=== PATIENT | female | born 1970 | race Caucasian/White ===

== ENCOUNTER → 2019-07-29 10:32 | Outpatient (BNVA) | payer MEDICARE, SELFPAY | PROVIDERS: Family Provider Family Medicine; PCP Family Medicine; Visit Provider Nurse Practitioner Family | DX: J02.9 Acute pharyngitis, unspecified (principal) | CPT/HCPCS: 87071; 87400; 87635; 87880 ==

== ENCOUNTER 2019-08-13 09:09 | Outpatient (CLI) | payer MEDICARE, SELFPAY ==
--- NOTE | 2019-08-13 09:42 | MM_ITS ---
WS: [id number] DIAGNOSTIC LEFT DIGITAL MAMMOGRAM WITH CAD HISTORY: Follow-up RIGHT breast post biopsy. COMPARISON: 01/02/2019, 01/16/2019 Technique: CC, MLO and ML views. Spot compression RIGHT CC. Breast composition: There are scattered areas of fibroglandular density. Biopsy of the asymmetry in the medial inferior RIGHT breast is stable. There is been no increase in size. Findings are concordan t with pathological and prior imaging. No additional workup at this time. MM/[place] [id number] IMPRESSION: BI-RADS: 2-Benign FOLLOW UP: See Report Patient to return to annual screening mammography. Patient's annual screening m ammogram should be in December 2019.
== END 2019-08-13 09:10 | disposition home or self-care (01) ==
PROVIDERS: Family Provider Family Medicine; PCP Family Medicine; Visit Provider Nurse Practitioner Women's Health
DX: R92.8 Other abnormal and inconclusive findings on diagnostic imaging of breast (principal)
CPT/HCPCS: 77065

== ENCOUNTER 2019-10-02 07:38 | Outpatient (CLI) | payer MEDICARE, SELFPAY ==
--- NOTE | 2019-10-02 08:00 | MM_ITS ---
WS: [id number] LEFT DIGITAL MAMMOGRAPHY WITH CAD CLINICAL INFORMATION: left breast mass at 8:00 COMPARISON: January 02, 2019 TECHNIQUE: 4 views of the left breast were obtained. FINDINGS: The left breast is composed of heterogeneous fibroglandular density tissue, which can limit the detec tion of small underlying mass lesions. Palpable marker lower inner quadrant left breast. No mammograp hic abnormalities in this area. Ultrasound is pending. ULTRASOUND BREAST LEFT TECHNIQUE: Ultrasound left breast focused area of concern. CLINICAL INFORMATION: left breast mass at 8:00 COMPARISON: None. FINDINGS: Ultrasound left breast at the 8:00 position at the palpable marker. No evidence of pathologic mass or lesion. No lesions to target for biopsy. Normal underlying breast tissue. MM/[place] [id number] IMPRESSION: BI-RADS: 2-Benign FOLLOW UP: 1 Year Follow-up Recommend return to annual screening mammography.
--- NOTE | 2019-10-02 08:45 | US_ITS ---
WS: [id number] LEFT DIGITAL MAMMOGRAPHY WITH CAD CLINICAL INFORMATION: left breast mass at 8:00 COMPARISON: January 02, 2019 TECHNIQUE: 4 views of the left breast were obtained. FINDINGS: The left breast is composed of heterogeneous fibroglandular density tissue, which can limit the detec tion of small underlying mass lesions. Palpable marker lower inner quadrant left breast. No mammograp hic abnormalities in this area. Ultrasound is pending. ULTRASOUND BREAST LEFT TECHNIQUE: Ultrasound left breast focused area of concern. CLINICAL INFORMATION: left breast mass at 8:00 COMPARISON: None. FINDINGS: Ultrasound left breast at the 8:00 position at the palpable marker. No evidence of pathologic mass or lesion. No lesions to target for biopsy. Normal underlying breast tissue. US/US breast LT limited* [id number] IMPRESSION: BI-RADS: 2-Benign FOLLOW UP: 1 Year Follow-up Recommend return to annual screening mammography.
== END 2019-10-02 07:39 | disposition home or self-care (01) ==
PROVIDERS: PCP Family Medicine; Visit Provider Nurse Practitioner Women's Health
DX: N63.24 Unspecified lump in the left breast, lower inner quadrant (principal)
CPT/HCPCS: 76642; 77065

== ENCOUNTER 2019-11-20 08:16 | Outpatient (CLI) | payer MEDICARE, SELFPAY ==
--- NOTE | 2019-11-20 08:20 | XR_ITS ---
WS: [id number] KUB, 11/20/2019 Clinical Data: RENAL CALCULUS Comparison: KUB, 09/10/2018. Findings: No abnormal intraabdominal masses or calcifications are seen. There is no dilatated small bowel or ev idence of obstruction. There are surgical clips overlying the right and left initial pubic rami. There are clips in the righ t upper quadrant from a cholecystectomy. There is fecal material in the descending colon. XR/XR KUB [id number] Impression: Negative for renal or ureteral calculi.
== END 2019-11-20 08:17 | disposition home or self-care (01) ==
LOC: RAD 08:18
PROVIDERS: PCP Family Medicine; Visit Provider Urology
DX: N20.0 Calculus of kidney (principal)
CPT/HCPCS: 74018; 81001

== ENCOUNTER 2019-12-22 09:05 | Emergency (ER) | payer MEDICARE, SELFPAY ==
[2019-12-22 09:16] VITALS: BP 159/100; PULSE 77; RESP 14; TEMP 36.5; O2SAT 98; BMI 30.7
--- NOTE | 2019-12-22 09:20 | XRR_ITS ---
PROCEDURE INFORMATION: Exam: XR Chest, 1 View Exam date and time: 12/22/2019 9:22 AM Age: 49 years old Clinical indication: Chest pain; Type not specified TECHNIQUE: Imaging protocol: XR of the chest Views: 1 view. COMPARISON: CR Chest 1 [place] [id number] 04/30/2018 9:54 AM FINDINGS: Lungs: Interstitial prominence without acute airspace disease. Pleural space: No pleural effusion. Heart/Mediastinum: No cardiomegaly. Bones/joints: Unremarkable. When correlating with the previous study, no significant interval changes are present. XR/XR chest 1V portable [id number] IMPRESSION: Stable appearance of the chest, not significantly changed from 04/30/18.
--- NOTE | 2019-12-22 09:20 | ECG_ITS ---
[facility] Test Date: 2019-12-22 Pat Name: Mila Greene Department: Room: Gender: Female [employer] Yard: : 1970 Requested By: Jie Woodson Order Number: [id number] Greg MD: Patricia Dillard M.D. Measurements Intervals [place] Rate: 62 P: 9 RI: 235 QRS: -19 QRSD: 96 T: 4 QT: 392 QTc: 400 Interpretive Statements SINUS RHYTHM WITH FIRST DEGREE AV BLOCK No previous ECG available for comparison Electronically Signed On 12-22-2019 15:17:53 CDT by Patricia Dillard M.D. [email or web address]/store/NU/[id number]/[id number] f
--- NOTE | 2019-12-22 09:22 | W.ED.CHESTPA ---
HPI - Chest Pain General: Chief Complaint: Chest Pain Stated Complaint: CHEST DISCOMFORT, N/V Time Seen by Provider: 12/22/19 09:13 History of Present Illness: HPI narrative: This patient is a 49-year-old female who presents today with nausea and chest pain. The nausea started on evening and she has had chest pain since Monday. She has been only able to eat toast and says it does not make her pain worse when she does so. The nausea has been constant but the chest pain does come and go to some degree. She feels it on the left side of her chest and it is worse with a deep breath. At times it radiates to her neck. At times she has tingling in the fingers of both hands. She has had an episode of chest pain in the past and thinks that she was told it was pleurisy. She has no history of heart disease. She has a history of hypertension but no diabetes. She is never been a smoker. She does have some family history of heart disease in both parents but she is not sure the type of problems that they had. Her father also had hypertension. She has had her gallbladder, appendix removed. She is also had a hysterectomy. She has had a right knee replacement in the remote past. She had Arnold-Chiari brain malformation and has had a brain decompression surgery for that. She has depression and fibromyalgia. MD complaint: chest pain Onset (ago): day(s) (3) Timing of current episode: constant Prior episodes: Yes Onset: during rest Pain location: left chest Pain radiation: neck Severity: moderate Quality: aching and heaviness Relieving factors: nothing Exacerbating factors: inspiration Associated symptoms: Reports nausea; Deny dyspnea or fever(s) Treatment prior to arrival: none Review of Systems General: Reports: 10 or more systems reviewed and unremarkable except in HPI and below Const: Denies: fever(s), chills, fatigue or malaise Eyes: Denies: change in vision ENMT: Denies: odynophagia Card: Reports: chest pain; Denies: swelling of feet/ankles Resp: Denies: dyspnea, productive cough or non-productive cough GI: Reports: nausea and diarrhea : Denies: flank pain or difficulty voiding Musc: Denies: neck pain or back pain Skin/Breast: Denies: rash Neuro: Denies: headache(s), numbness in extremities or weakness in extremities Allan/Lymph: Denies: easy bruising or easy bleeding PFSH ED PFSH: Medical History Abnormal mammogram of right breast Arnold-Chiari malformation Breast pain, left DDD (degenerative disc disease) Depression Dyspareunia, female Hypertension Lupus Recurrent UTI Urgency incontinence Urolithiasis Surgical History H/O bladder repair surgery H/O brain surgery (~2002) tx for chiari H/O knee surgery multiple arthroscopies on both knees H/O laparoscopy (~1995) - 03/27/1996. Laparoscopy. Dr. Cleveland AGUILERA. Adhesiolysis. Fulguration of endometriosis. No tissue for pathology. 10/03/1997. Laparoscopy. Dr. Cleveland AGUILERA. Adhesio lysis. Fulguration of endometriosis. Appendectomy, with benign pathology. History of appendectomy (~1999) History of bilateral oophorectomy a few years after hyst History of hysterectomy (~1999) History of partial knee replacement (~2009) right Hx of cholecystectomy Family History Grandmother Breast cancer, Onset Age: 50 MATERNAL Stroke PATERNAL Father , AGE 64 Diabetes Hypertension Alcohol abuse Family/Other Patient denies medical problems uterine/ovarian/colon cancer, thyroid, hypercholesterolemia,heart disease Social History Smoking and tobacco status: never smoked Alcohol intake: current Alcohol intake frequency: holidays/special occasions only Marital status: Current occupational status: unemployed History of recent travel: No Physical Exam Const: COMMON NORMALS: no acute distress, patient oriented x3, no limitations and alert GENERAL APPEARANCE: cooperative and comfortable HENMT: HEAD & SCALP: normal to inspection FACE & SINUS: normal facial exam Eye: GENERAL EYE: appearance normal, both eyes and all related structures Neck/C-Spine: COMMON NORMALS: supple, no meningeal signs and no JVD Chest: COMMONS NORMALS: normal inspection of the chest Resp: COMMON NORMALS: normal respiratory effort, No use of accessory muscles and clear to auscultation bilaterally AUSCULTATION: clear to auscultation bilaterally Cardio: COMMON NORMALS: no JVD, regular rate, regular rhythm and No murmurs present (Cardio) RATE: regular rate RHYTHM: regular rhythm GI: COMMON NORMALS: Normal to inspection, nondistended, normoactive bowel sounds present, Soft to palpation and non-tender INSPECTION: Yes normal to inspection AUSCULTATION: Yes normoactive bowel sounds PALPATION: Yes Soft to palpation Back/Pelvis: COMMON NORMALS: thoracic and lumbar spine normal to inspection Extremity: COMMON NORMALS: normal to inspection Neuro: COMMON NORMALS: patient oriented x3, moves all extremities, no focal motor deficits and no sensory deficits noted SENSORIUM/ORIENTATION: Yes alert MENINGEAL SIGNS: Yes no meningeal signs Psych: COMMON NORMALS: mental status grossly normal, cooperative and normal affect Skin: COMMON NORMALS: no rashes or lesions noted and turgor normal GENERAL SKIN EXAM: no rashes or lesions noted and turgor normal Course ED course: Work-up was negative including troponins, EKGs, d-dimer and lipase. Patient symptoms improved while she was in the ED. She said she felt she was ready to go home. She had gotten an appetite back and was drinking a Coca-Cola. We discussed that even with normal labs and findings in the ED she needs to follow-up with her primary care provider to see if they feel like further investigation of her symptoms as needed. We also discussed return precautions. Vital Signs: Vital signs: Vital Signs Temperature 97.7 F 12/22/19 09:16 Pulse Rate 70 12/22/19 13:53 Respiratory Rate 15 12/22/19 13:53 Blood Pressure 114/75 12/22/19 13:53 Pulse Oximetry 98 12/22/19 13:53 MDM - Chest Pain Lab Data: Labs: Lab Results 12/22/19 12/22/19 12/22/19 Range/Units 09:20 09: 09:20 WBC 4.8 (4.0-10.0) 10^3/ uL RBC 4.54 (4.1-5.3) 10^6/u L Hgb 14.1 (11.5-15.3) g/dL Hct 42.2 (37.0-47.0) % MCV 93.0 (81-99) fL MCH 31.1 (28.0-34.0) pg MCHC 33.4 (30.0-36.0) g/dL RDW 11.8 L (12.1-15.1) % Plt Count 321 (130-400) 10^3/c mm MPV 9.0 (7.4-10.4) fL Neut % (Auto) 52.0 % Lymph % (Auto) 38.8 % [place] % (Auto) 6.5 % Eos % (Auto) 2.1 % Baso % (Auto) 0.4 % Neut # (Auto) 2.48 (1.8-7.7) 10^3/u L Lymph # (Auto) 1.9 (0.8-4.8) 10^3/u L [place] # (Auto) 0.3 (0.2-0.9) 10^3/u L Eos # (Auto) 0.1 (0.0-0.8) 10^3/u L Baso # (Auto) 0.0 (0.0-0.1) 10^3/u L Nucleated RBC % (a uto) 0 % Nucleated RBCs # 0.0 /100WBC PT 12.70 (12.1-14.9) SECO NDS INR 0.93 (0.8-1.2) D-Dimer 0.35 (0-0.59) ug/mIFE U Sodium 141 (136-145) mmol/L Potassium 3.8 (3.5-5.1) mmol/L Chloride 105 (98-107) mmol/L Carbon Dioxide 24 (22-29) mmol/L Anion Gap 15.8 (5-19) BUN 8 (6-20) mg/dL Creatinine 0.7 (0.5-0.9) mg/dL GFR Calculation 88.9 L (90-130) mL/min Glucose 98 (65-115) mg/dL Calculated Osmolal ity 288 (285-295) mOsm/k g Calcium 9.6 (8.5-10.5) mg/dL Total Bilirubin 0.5 (0.15-1.2) mg/dL AST 16 (0-32) U/L ALT 17 (0-33) U/L Alkaline Phosphata se 83 (35-105) IU/L Troponin T Baselin e (0-10) ng/L Troponin T 120 Min [place] (0-10) ng/L Delta Troponin T (0-10) ABS# NT-Pro-B Natriuret Pep 45 (0-125) pg/mL Total Protein 7.6 (6.6-8.7) g/dL Albumin 4.5 (3.5-5.2) g/dL Globulin 3.1 (1.3-4.6) g/dL Lipase 26 (13-60) U/L 12/22/19 12/22/19 Range/Units 09:20 11:20 WBC (4.0-10.0) 10^3/ uL RBC (4.1-5.3) 10^6/u L Hgb (11.5-15.3) g/dL Hct (37.0-47.0) % MCV (81-99) fL MCH (28.0-34.0) pg MCHC (30.0-36.0) g/dL RDW (12.1-15.1) % Plt Count (130-400) 10^3/c mm MPV (7.4-10.4) fL Neut % (Auto) % Lymph % (Auto) % [place] % (Auto) % Eos % (Auto) % Baso % (Auto) % Neut # (Auto) (1.8-7.7) 10^3/u L Lymph # (Auto) (0.8-4.8) 10^3/u L [place] # (Auto) (0.2-0.9) 10^3/u L Eos # (Auto) (0.0-0.8) 10^3/u L Baso # (Auto) (0.0-0.1) 10^3/u L Nucleated RBC % (a uto) % Nucleated RBCs # /100WBC PT (12.1-14.9) SECO NDS INR (0.8-1.2) D-Dimer (0-0.59) ug/mIFE U Sodium (136-145) mmol/L Potassium (3.5-5.1) mmol/L Chloride (98-107) mmol/L Carbon Dioxide (22-29) mmol/L Anion Gap (5-19) BUN (6-20) mg/dL Creatinine (0.5-0.9) mg/dL GFR Calculation (90-130) mL/min Glucose (65-115) mg/dL Calculated Osmolal ity (285-295) mOsm/k g Calcium (8.5-10.5) mg/dL Total Bilirubin (0.15-1.2) mg/dL AST (0-32) U/L ALT (0-33) U/L Alkaline Phosphata se (35-105) IU/L Troponin T Baselin e 6 (0-10) ng/L Troponin T 120 Min [place] 6.00 (0-10) ng/L Delta Troponin T 0 (0-10) ABS# NT-Pro-B Natriuret Pep (0-125) pg/mL Total Protein (6.6-8.7) g/dL Albumin (3.5-5.2) g/dL Globulin (1.3-4.6) g/dL Lipase (13-60) U/L Discharge Plan Discharge Patient Disposition: Home Clinical Impression: Chest pain Condition: Stable Prescriptions: No Action fluoxetine 10 mg capsule 10 mg PO DAILY RF: 0 rizatriptan [Maxalt] 10 mg tablet 10 mg PO Q2H PRN (Reason: headaches) RF: 0 amitriptyline 25 mg tablet 25 mg PO .HS PRN (Reason: unknown) RF: 0 amlodipine 5 mg tablet 5 mg PO DAILY RF: 0 hydrocodone-acetaminophen [[place]] 5-325 mg tablet 1 tab PO .PRN PRN (Reason: Pain) RF: 0 bupropion HCl [Wellbutrin XL] 150 mg tablet extended release 24 hr 300 mg PO QAM RF: 0 lorazepam 1 mg tablet 1 mg PO DAILY PRN (Reason: Anxiety) RF: 0 Aspirin Low Dose 81 mg Tablet,Delayed Release (Dr/Ec) 81 mg PO DAILY PRN (Reason: pain/chest pain) RF: 0 Discharge Orders: Discharge Order (Routine); Ordered 12/22/19 Ordered By: Jie Chase Referrals: Robert Lu DO [Primary Care Provider] - Patient Instructions: Chest Pain (ED) Activity Restrictions/Additional Instructions: Return to the emergency department if new or worse symptoms. Follow-up with your primary care doctor this week for further evaluation of your symptoms. Continue a light diet until you are feeling better. Discharge Date/Time: 12/22/19 13:54 Coding Level of Care Code ED Ergonomic Specialist for Chg 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
[2019-12-22] MEDS: ondansetron 2 mg/ML SDV 2 mL 4 MG IVP (09:28)
[2019-12-22 09:31] LABS: Basophils % 0.4 %; Eosinophils # 0.1 10^3/uL (0.0-0.8); Eosinophils % 2.1 %; Hematocrit 42.2 % (37.0-47.0); Hemoglobin 14.1 g/dL (11.5-15.3); Lymphocytes # 1.9 10^3/uL (0.8-4.8); Lymphocytes % 38.8 %; Mean Corpuscular HGB Conc 33.4 g/dL (30.0-36.0); Mean Corpuscular Hemoglobin 31.1 pg (28.0-34.0); Monocytes # 0.3 10^3/uL (0.2-0.9); Monocytes % 6.5 %; Neutrophils # 2.48 10^3/uL (1.8-7.7); Nucleated Red Blood Cells % 0 %; Platelet Count 321 10^3/cmm (130-400); Red Blood Count 4.54 10^6/uL (4.1-5.3); Red Cell Distribution Width 11.8 % (12.1-15.1); White Blood Count 4.8 10^3/uL (4.0-10.0)
[2019-12-22 09:43] LABS: INR 0.93 (0.8-1.2)
[2019-12-22 09:46] LABS: D Dimer 0.35 ug/mIFEU (0-0.59)
[2019-12-22] MEDS: aspirin 81 mg Chew Tablet 324 MG PO (09:55)
--- NOTE | 2019-12-22 09:55 | PC.NURSE ---
Nausea has improved
[2019-12-22 09:58] LABS: Troponin(5th) Baseline 6 ng/L (0-10)
[2019-12-22 10:04] LABS: Alanine Aminotransferase 17 U/L (0-33); Albumin Level 4.5 g/dL (3.5-5.2); Alkaline Phosphatase 83 IU/L (35-105); Anion Gap 15.8 (5-19); Aspartate Amino Transferase 16 U/L (0-32); Blood Urea Nitrogen 8 mg/dL (6-20); Calcium 9.6 mg/dL (8.5-10.5); Carbon Dioxide 24 mmol/L (22-29); Chloride 105 mmol/L (98-107); Globulin 3.1 g/dL (1.3-4.6); Glomerular Filtration Rate 88.9 mL/min (90-130); Glucose 98 mg/dL (65-115); Lipase 26 U/L (13-60); NT Pro B Type Natriuretic Pept 45 pg/mL (0-125); Osmolality Calculated 288 mOsm/kg (285-295); Potassium 3.8 mmol/L (3.5-5.1); Sodium 141 mmol/L (136-145); Total Bilirubin 0.5 mg/dL (0.15-1.2); Total Protein 7.6 g/dL (6.6-8.7)
[2019-12-22 10:53] VITALS: BP 138/92; PULSE 66; RESP 16; O2SAT 99
[2019-12-22 11:51] LABS: Troponin 5 2HR Delta 0 ABS# (0-10)
[2019-12-22 13:53] VITALS: BP 114/75; PULSE 70; RESP 15; O2SAT 98
== END 2019-12-22 13:54 | disposition home or self-care (01) ==
PROVIDERS: Emergency Provider Emergency Medicine; PCP Family Medicine
DX: R07.9 Chest pain, unspecified (principal); Z79.82 Long term (current) use of aspirin; I10 Essential (primary) hypertension
CPT/HCPCS: 12345; 36415; 71045; 80053; 83690; 83880; 84484; 85025; 85378; 85610; 93005; 96374; 99283; 99284; J2405

== ENCOUNTER 2020-01-06 08:05 | Outpatient (CLI) | payer MEDICARE, SELFPAY ==
--- NOTE | 2020-01-06 08:10 | MM_ITS ---
WS: [id number] BILATERAL DIGITAL SCREENING MAMMOGRAPHY WITH CAD CLINICAL INFORMATION: SCREENING HISTORY: Screening mammogram. Pain and soreness COMPARISON: October 02, 2019 TECHNIQUE: Bilateral CC and MLO views. FINDINGS: The breasts are composed of heterogeneous fibroglandular density tissue, which can limit the detectio n of small underlying mass lesions. Previously biopsied unchanged asymmetry in the medial inferior ri ght breast. Prior biopsy demonstrated benign tissue. No new or suspicious normalities. MM/[id number] IMPRESSION: BI-RADS: 2-Benign FOLLOW UP: 1 Year Follow-up Recommend return to annual screening mammography.
== END 2020-01-06 08:06 | disposition home or self-care (01) ==
LOC: RADSHAW 08:07
PROVIDERS: PCP Family Medicine; Visit Provider Nurse Practitioner Women's Health
DX: Z12.31 Encounter for screening mammogram for malignant neoplasm of breast (principal)
CPT/HCPCS: 77067

== ENCOUNTER 2020-10-09 08:47 | Outpatient (CLI) | payer BC, MEDICARE, SELFPAY ==
--- NOTE | 2020-10-09 09:00 | MM_ITS ---
WS: [id number] Bilateral diagnostic digital mammogram, 10/09/2020 Clinical Data: N64.4 - Mastodynia Comparison: 10/09/2020, 01/06/2020, 10/02/2019, 08/13/2019, 01/16/2019, 01/02/2019, 12/19/2017, 03/17/2017, , 01/30/2015, 01/06/2014, 12/16/2011, 12/08/2010, 10/06/1999. Findings: The breast parenchymal pattern shows fibroglandular tissue. No spiculated masses or clustered calcifi cations are seen. There are no secondary signs of carcinoma. There are lymph nodes in both axilla. MM/[place] [id number] Impression: 1. Negative bilateral mammograms unchanged. 2. Right breast ultrasound was performed. BIRADS: 2-Benign FOLLOW UP: See Report The CAD security checker was used.
--- NOTE | 2020-10-09 09:30 | US_ITS ---
WS: [id number] Left breast ultrasound, 10/09/2020 Clinical Data: N64.4 - Mastodynia Comparison: Left breast ultrasound, 12/02/2019. Findings: No cysts or masses are seen. Only normal breast tissue is seen. The examination was limited to the le ft axilla. US/US breast LT limited* [id number] Impression: 1. Negative left breast ultrasound. 2. Return to annual screening mammograms. BIRADS: 2-Benign FOLLOW UP: 1 Year Follow-up
== END 2020-10-09 08:48 | disposition home or self-care (01) ==
LOC: RADSHAW 08:55
PROVIDERS: PCP Family Medicine; Visit Provider Nurse Practitioner Women's Health
DX: N64.4 Mastodynia (principal)
CPT/HCPCS: 76642; 77066

== ENCOUNTER 2020-10-27 07:04 | Outpatient (CLI) | payer BC, MEDICARE, SELFPAY ==
--- NOTE | 2020-10-27 07:12 | XR_ITS ---
WS: [id number] KUB, AP view, 10/27/2020 Clinical Data: STONES Comparison: KUB, 11/20/2019. Findings: No abnormal intraabdominal masses or calcifications are seen. There is no dilatated small bowel or ev idence of obstruction. Fecal material in colon and gas obscure detail over both kidneys. There are clips in the upper abdome n from a cholecystectomy. There are surgical clips in the low pelvis. XR/XR KUB [id number] Impression: Negative KUB.
== END 2020-10-27 07:05 | disposition home or self-care (01) ==
LOC: RAD 07:10
PROVIDERS: PCP Family Medicine; Visit Provider Urology
DX: N20.9 Urinary calculus, unspecified (principal); Z20.822 Contact with and (suspected) exposure to COVID-19; N39.0 Urinary tract infection, site not specified
CPT/HCPCS: 74018; 81003; 87086; 87635; 88112

== ENCOUNTER 2020-10-27 09:46 | Outpatient (CLI) | payer BC, MEDICARE, SELFPAY ==
--- NOTE | 2020-10-27 09:58 | CT_ITS ---
WS: [id number] CT ABDOMEN AND PELVIS NONCONTRAST HISTORY: UROLITHIASIS TECHNIQUE: Imaging performed through the abdomen and pelvis. Coronal and sagittal reformats are submi tted. All CT scans at [facility] use at least one of these dose optimization techniques: automated exposure control; mA and/or kV adjustment per patient size (includes targeted exams where d ose is matched to clinical indication); or iterative reconstruction. DLP: 1842.02 mGy.cm COMPARISON: 02/27/2018 Lower thorax: Lung bases are clear. Visualized heart is normal. No hiatal hernia. Liver: Mild diffuse hepatic steatosis. No mass or bile duct dilatation. Liver is also slightly enlarg ed. Gallbladder: Prior cholecystectomy. Pancreas: Normal size and attenuation. Normal pancreatic duct. No pancreatitis or mass. Spleen: Normal. Adrenal glands: Normal. No mass. Right kidney: Normal size kidney. Mild dilatation of the renal pelvis secondary to 5 mm stone at the UP junction. Distal ureter is normal. Left kidney: Normal size. Tiny calcifications centrally. 5 mm area of increased density in the lower pole cortex. May be a small complex cyst. Aorta: Normal abdominal aorta, no aneurysm or atherosclerosis. No free fluid, intraperitoneal air or significant lymphadenopathy. GI tract: Appendix is not identified, probable prior appendectomy. No secondary findings of appendici tis. No GI tract obstruction. Abdominal wall: Negative. No hernia. Pelvis: Prior hysterectomy. Osseous structures: Moderate degenerative disc disease at L4-5. CT/CT kidney stone [id number] IMPRESSION: 1. Mild RIGHT hydronephrosis secondary to a 5 mm calcification at the UP junct ion. 2. Nonobstructing nephrolithiasis, LEFT. 3. Prior appendectomy, cholecystectomy and hysterectomy. 4. Hepatic steatosis.
== END 2020-10-27 09:47 | disposition home or self-care (01) ==
LOC: RAD 09:51
PROVIDERS: PCP Family Medicine; Visit Provider Urology
DX: N20.9 Urinary calculus, unspecified (principal); N13.30 Unspecified hydronephrosis; N20.0 Calculus of kidney; Q42.8 Congenital absence, atresia and stenosis of other parts of large intestine; Z90.49 Acquired absence of other specified parts of digestive tract; Z90.710 Acquired absence of both cervix and uterus; K76.0 Fatty (change of) liver, not elsewhere classified
CPT/HCPCS: 74176

== ENCOUNTER 2020-10-27 16:25 | Emergency (ER) | payer BC, MEDICARE, SELFPAY ==
[2020-10-27] VITALS (7 sets, daily range): BP systolic 139–166; BP diastolic 77–98; PULSE 63–76; RESP 16–20; TEMP 37.1; O2SAT 96–100; BMI 31.0
--- NOTE | 2020-10-27 17:22 | ED_ITS ---
HPI - Back Pain/Injury General: Chief Complaint: Back Pain/Injury Stated Complaint: passing kidney stone Time Seen by Provider: 10/27/20 17:22 History of Present Illness: HPI Narrative: 50-year-old female comes in today with right flank pain. Patient was seen at Dr. Turcios's office yesterday and today and was diagnosed with a renal stone. Patient has CT scan done earlier today and it diagnosed a 5 mm obstructing stone with mild right hydronephrosis. Urinalysis showed no white blood cells but a large amount of red blood cells. Patient reports about 3:00 today she started having some pain had taken 1 hydrocodone but [id number] nauseous and sick and then seek treatment with the emergency room. Patient is alert and oriented and reports minimal relief of discomfort. Patient has a history of depression and anxiety, hypertension, recurrent renal calculi, chronic back pain. MD elicited complaint: back pain Pertinent past history: kidney stones Onset (ago): day(s) Timing: intermittent Quality: stabbing Location: right flank Review of Systems General: Reports: 10 or more systems reviewed and unremarkable except in HPI and below : Reports: flank pain PFSH ED PFSH: Medical History Abnormal mammogram of right breast Arnold-Chiari malformation Breast pain, left DDD (degenerative disc disease) Depression Dyspareunia, female Gross hematuria Hypertension Lupus Recurrent UTI Urgency incontinence Urolithiasis Surgical History H/O bladder repair surgery H/O brain surgery (~2002) tx for chiari H/O knee surgery multiple arthroscopies on both knees H/O laparoscopy (~1995) - 03/27/1996. Laparoscopy. Dr. Cleveland Magana. Adhesiolysis. Fulguration of endometriosis. No tissue for pathology. 10/03/1997. Laparoscopy. Dr. Cleveland AGUILERA. Adhesio lysis. Fulguration of endometriosis. Appendectomy, with benign pathology. History of appendectomy (~1999) History of bilateral oophorectomy a few years after hyst History of hysterectomy (~1999) History of partial knee replacement (~2009) right Hx of cholecystectomy Family History Grandmother Breast cancer, Onset Age: 50 MATERNAL Stroke PATERNAL Father , AGE 64 Diabetes Hypertension Alcohol abuse Family/Other Patient denies medical problems uterine/ovarian/colon cancer, thyroid, hypercholesterolemia,heart d isease Social History Smoking and tobacco status: never smoked Alcohol intake: current Alcohol intake frequency: holidays/special occasions only Marital status: Current occupational status: unemployed Physical Exam Const: COMMON NORMALS: no acute distress and patient oriented x3 GENERAL APPEARANCE: cooperative HENMT: COMMON NORMALS: normocephalic, TM's normal bilaterally and Normal external nose present HEAD & SCALP: normal to inspection and normocephalic NOSE: Normal external nose present TYMPANIC MEMBRANE: TM's normal bilaterally MOUTH: Normal oral and palatal mucosa present THROAT: posterior oropharynx normal Eye: GENERAL EYE: appearance normal, both eyes and all related structures Neck/C-Spine: COMMON NORMALS: full ROM Lymph: LYMPHATIC: no lymphadenopathy noted Chest: COMMONS NORMALS: normal inspection of the chest Resp: COMMON NORMALS: normal respiratory effort EFFORT & INSPECTION: Yes able to speak in complete sentences Cardio: COMMON NORMALS: regular rate and regular rhythm RATE: regular rate RHYTHM: regular rhythm GI: COMMON NORMALS: non-tender : BLADDER/KIDNEY EXAM: Yes CVA tenderness on the right Back/Pelvis: COMMON NORMALS: thoracic and lumbar spine normal to inspection GENERAL BACK: Yes CVA tenderness Extremity: COMMON NORMALS: normal to inspection Neuro: COMMON NORMALS: patient oriented x3 and moves all extremities Psych: COMMON NORMALS: mental status grossly normal and cooperative Skin: COMMON NORMALS: no rashes or lesions noted GENERAL SKIN EXAM: no rashes or lesions noted Course ED course: 1844. Patient reports significant pain relief. Discussed with patient options available for her. Patient wants to wait for the lithotripsy machine next week we will continue to monitor for fever and worsening symptoms. I recommend patient follow-up with Dr. Turcios in the morning. Vital Signs: Vital signs: Vital Signs Temperature 98.7 F 10/27/20 16:57 Pulse Rate 76 10/27/20 18:44 Respiratory Rate 18 10/27/20 18:44 Blood Pressure 141/83 10/27/20 18:44 Pulse Oximetry 97 10/27/20 18:44 MDM - Back Pain/Injury MDM Narrative: Medical decision making narrative: Patient comes in for exacerbation of her renal colic due to a 5 mm stone in the ureter. Exam notes that patient was nauseous, abdomen was soft, right CVA tenderness on percussion. Vital signs were normal. Differential diagnosis includes not limited to renal calculi, UTI, acute kidney injury. Laboratory values were unremarkable. Review of the record noted patient had a urinalysis done earlier today that was negative for any white blood cells. And review of the CT scan from earlier to day showed a 5 mm stone with right mild hydronephrosis. Reviewed exam with patient with recommendations for treatment and follow-up. Patient reported understanding agreed to plan she wants to continue follow-up with Dr. Turcios outpatient. Patient pain was brought under control with morphine. Lab Data: Labs: Lab Results 10/27/20 10/27/20 Range/Units 17:24 17:24 WBC 8.5 (4.0-10.0) 10^3/ uL RBC 4.38 (4.1-5.3) 10^6/u L Hgb 13.7 (11.5-15.3) g/dL Hct 40.1 (37.0-47.0) % MCV 91.6 (81-99) fL MCH 31.3 (28.0-34.0) pg MCHC 34.2 (30.0-36.0) g/dL RDW 12.0 L (12.1-15.1) % Plt Count 272 (130-400) 10^3/c mm MPV 10.1 (7.4-10.4) fL Neut % (Auto) 59.3 % Lymph % (Auto) 31.8 % [place] % (Auto) 6.6 % Eos % (Auto) 1.4 % Baso % (Auto) 0.5 % Neut # (Auto) 5.07 (1.8-7.7) 10^3/u L Lymph # (Auto) 2.7 (0.8-4.8) 10^3/u L [place] # (Auto) 0.6 (0.2-0.9) 10^3/u L Eos # (Auto) 0.1 (0.0-0.8) 10^3/u L Baso # (Auto) 0.0 (0.0-0.1) 10^3/u L Nucleated RBC % (a uto) 0 % Nucleated RBCs # 0.0 /100WBC Sodium 140 (136-145) mmol/L Potassium 3.4 L (3.5-5.1) mmol/L Chloride 103 (98-107) mmol/L Carbon Dioxide 19 L (22-29) mmol/L Anion Gap 21.4 H (5-19) BUN 14 (6-20) mg/dL Creatinine 0.6 (0.5-0.9) mg/dL GFR Calculation 105.8 (90-130) mL/min Glucose 127 H (65-115) mg/dL Calculated Osmolal ity 292 (285-295) mOsm/k g Calcium 8.6 (8.5-10.5) mg/dL Discharge Plan Discharge Patient Disposition: Home Clinical Impression: Renal colic Condition: Stable Prescriptions: No Action hydrocodone-acetaminophen 5-325 mg tablet 1 tab PO Q8H PRN (Reason: Pain) 4 Days Qty: 12 RF: 0 tamsulosin 0.4 mg capsule 0.4 mg PO DAILY Qty: 14 RF: 2 rizatriptan [Maxalt] 10 mg tablet 10 mg PO Q2H PRN (Reason: headaches) RF: 0 amitriptyline 25 mg tablet 25 mg PO BEDTIME PRN (Reason: Headache) RF: 0 amlodipine 5 mg tablet 5 mg PO DAILY RF: 0 lorazepam 1 mg tablet 1 mg PO TID PRN (Reason: Anxiety) RF: 0 bupropion HCl 150 mg Tablet Sustained-Release 12 Hr 150 mg PO BID RF: 0 fluoxetine 20 mg Capsule 20 mg PO DAILY RF: 0 Discharge Orders: Discharge ED (Routine); Ordered 10/27/20 Ordered By: Yoel Dawn Referrals: Robert Lu DO [Primary Care Provider] - Discharge Diet: Usual diet Discharge Activity: Increase activity as tolerated Patient Instructions: Abdominal Pain (ED), Opioid Safety Activity Restrictions/Additional Instructions: Continue with routine care. Follow-up with Dr. Turcios's office in the morning. Return to the ER for worsening symptoms. Coding Level of Care Code ED Nursing Home Administrator for Sara 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
[2020-10-27] MEDS: ketorolac 30 mg/mL INJ 15 MG IVP (17:31)
[2020-10-27] MEDS: ondansetron 2 mg/ML SDV 2 mL 4 MG IVP (17:31)
[2020-10-27] MEDS: morphine 4 mg/mL SDV 1 mL IVP ×2 (17:32→18:41)
[2020-10-27 17:45] LABS: Basophils % 0.5 %; Eosinophils # 0.1 10^3/uL (0.0-0.8); Eosinophils % 1.4 %; Hematocrit 40.1 % (37.0-47.0); Hemoglobin 13.7 g/dL (11.5-15.3); Lymphocytes # 2.7 10^3/uL (0.8-4.8); Lymphocytes % 31.8 %; Mean Corpuscular HGB Conc 34.2 g/dL (30.0-36.0); Mean Corpuscular Hemoglobin 31.3 pg (28.0-34.0); Mean Corpuscular Volume 91.6 fL (81-99); Mean Platelet Volume 10.1 fL (7.4-10.4); Monocytes # 0.6 10^3/uL (0.2-0.9); Monocytes % 6.6 %; Neutrophils # 5.07 10^3/uL (1.8-7.7); Neutrophils % 59.3 %; Nucleated Red Blood Cells % 0 %; Platelet Count 272 10^3/cmm (130-400); Positive C 1; Red Blood Count 4.38 10^6/uL (4.1-5.3); White Blood Count 8.5 10^3/uL (4.0-10.0)
[2020-10-27 18:03] LABS: Blood Urea Nitrogen 14 mg/dL (6-20); Calcium 8.6 mg/dL (8.5-10.5); Carbon Dioxide 19 mmol/L (22-29); Chloride 103 mmol/L (98-107); Glomerular Filtration Rate 105.8 mL/min (90-130); Glucose 127 mg/dL (65-115); Osmolality Calculated 292 mOsm/kg (285-295); Sodium 140 mmol/L (136-145)
[2020-10-27 18:17] LABS: Anion Gap 21.4 (5-19); Potassium 3.4 mmol/L (3.5-5.1)
== END 2020-10-27 18:54 | disposition home or self-care (01) ==
PROVIDERS: Emergency Provider Nurse Practitioner Family; PCP Family Medicine
DX: N13.2 Hydronephrosis with renal and ureteral calculous obstruction (principal); I10 Essential (primary) hypertension
CPT/HCPCS: 80048; 85025; 96374; 96375; 96376; 99284; J1885; J2270; J2405

== ENCOUNTER 2020-11-02 10:19 | Day surgery (SDC) | payer BC, MEDICARE, SELFPAY ==
[2020-10-30 13:19] VITALS: BMI 30.7
--- NOTE | 2020-11-02 10:26 | XR_ITS ---
WS: [id number] XR KUB [id number] REASON FOR EXAM: Preop right ESWL FINDINGS: The proximal right ureteral calculus seen on the KUB and CT of the abdomen on 27 October 2020 is not deb dily identifiable at the L1 level or along the course of the ureter or overlying the bladder. This ma y just be an issue of overlying bowel and respiratory motion artifact obscuring the 5 mm calculus. No other significant abnormality. XR/XR KUB [id number] IMPRESSION: Previously identified proximal right ureteral calculus not clearly defined on c urrent study.
[2020-11-02 11:19] VITALS: BP 139/96; PULSE 80; RESP 18; TEMP 36.8; O2SAT 97
[2020-11-02] MEDS: sodium chloride 0.9% 1,000 ML 30 ML IV (11:30)
--- NOTE | 2020-11-02 12:14 | ANES.PREANE2 ---
Pre-Anesthetic Assessment Pre-Anesthetic Assessment: Height/Weight: Height 1.7 m Weight 88.904 kg Temp Pulse Resp BP Pulse Ox 98.2 F 80 18 139/96 97 11/02/20 11:19 11/02/20 11:19 11/02/20 11:19 11/02/20 11:19 11/02/20 11:19 Preop Diagnosis: Right proximal ureteral calculus Proposed Procedure: Operation Date: 11/02/20 12:00 Proposed Procedures p Cystoscopy 87437 00725 n20.9(Not Applicable) - Lonnie Turcios MD s right Ureteral Stent Placement(Right) - Lonnie Turcios MD s ESWL Extracorporeal Shockwave Lithotrispy(Not Applicable) - Lonnie Turcios MD Was Beta Lisa taken within 24 hours: N/A Was Clonidine taken within 24 hours: N/A Last intake: Intake Last Liquid Date 11/01/20 Last Liquid Time 17:30 Last Solid Date 11/01/20 Last Solid Time 15:30 Social: Social History: No alcohol and No tobacco Exam: Pre-Anes Outpt Exam: alert, oriented x 3, clear to auscultation bilaterally and regular rate & rhythm Airway: Submandibular: WNL Cervical ROM: WNL MP: 2 Dentition: Full CV/HEM: CV/HEM: HTN Neuropsych: Neuropsych: Anxiety, Depression and OSORIO Anesthetic Plan: ASA status: 2 Anesthesia: General Risk of > 500 ml blood loss (7ml/kg in children): No Meds/Allergies Current Medications: Current Medications Generic Name Dose Route Start Last Admin Trade Name Freq PRN Reason Stop Dose Admin Sodium Chloride 1,000 mls @ 30 ml s/hr 11/02/20 10:30 11/02/20 11:30 Sodium Chloride 0.9% IV 11/03/20 10:29 30 mls/hr .Q24H SHELIA Administration PFSH Anesthesia PFSH: Medical History Abnormal mammogram of right breast Arnold-Chiari malformation Breast pain, left DDD (degenerative disc disease) Depression Dyspareunia, female Gross hematuria Hypertension Lupus Recurrent UTI Urgency incontinence Urolithiasis Surgical History H/O bladder repair surgery H/O brain surgery (~2002) tx for chiari H/O knee surgery multiple arthroscopies on both knees H/O laparoscopy (~1995) - 03/27/1996. Laparoscopy. Dr. Cleveland Magana. Adhesiolysis. Fulguration of endometriosis. No tissue for pathology. 10/03/1997. Laparoscopy. Dr. Cleveland Magana. Adhesio lysis. Fulguration of endometriosis. Appendectomy, with benign pathology. History of appendectomy (~1999) History of bilateral oophorectomy a few years after hyst History of hysterectomy (~1999) History of partial knee replacement (~2009) right Hx of cholecystectomy Family History Grandmother Breast cancer, Onset Age: 50 MATERNAL Stroke PATERNAL Father , AGE 64 Diabetes Hypertension Alcohol abuse Family/Other Patient denies medical problems uterine/ovarian/colon cancer, thyroid, hypercholesterolemia,heart disease Social History Smoking and tobacco status: never smoked Alcohol intake: current Alcohol intake frequency: holidays/special occasions only Marital status: Current occupational status: unemployed Data Anesthesia Cardiac Studies: No Data to Display
--- NOTE | 2020-11-02 12:47 | P.HPUD_ITS ---
Surgery/Procedure H&P Update DATE OF PROCEDURE: November 02, 2020 DATE H&P PERFORMED: 10/27/20 H&P UPDATE INFORMATION: I have reviewed H&P completed within last 30 days, I have examined patient prior to procedure and Changes to prior documentation as noted here CHANGES TO PREVIOUS DOCUMENTATION: Cannot clearly see the stone on the preoperative KUB today. There are couple areas that might be suspicious for that. Still having some right renal colicky symptoms although not as severe. We will plan on a cystoscopy and right retrograde ureteropyelogram first to see if the stone can be clearly identified with contrast prior to initiation of denny ckwave therapy. PREOP DIAGNOSIS: Right proximal ureteral calculus PLANNED PROCEDURE: Operation Date: 11/02/20 12:00 Proposed Procedures p Cystoscopy 18294 60896 n20.9(Not Applicable) - Lonnie Turcios MD s right Ureteral Stent Placement(Right) - Lonnie Turcios MD s ESWL Extracorporeal Shockwave Lithotrispy(Not Applicable) - Lonnie Turcios MD
[2020-11-02] MEDS: levofloxacin-dextrose 5 % 500 MG/100 ML PREMIX 100 MG IV (13:09)
[2020-11-02] MEDS: iohexol 300 mg/mL 50 mL Btl XX (13:52)
[2020-11-02 14:23] VITALS: BP 121/66; PULSE 71; RESP 20; TEMP 36.1; O2SAT 98
[2020-11-02 14:25] VITALS: BP 119/66; PULSE 70; RESP 24; O2SAT 98
--- NOTE | 2020-11-02 14:27 | PM.OP ---
Operative Report Date of procedure: November 02, 2020 Pre-op Diagnosis: Right proximal ureteral calculus Post-op Diagnosis: Right MID ureteral calculus Procedure Done: 1. Cystoscopy with right retrograde ureteropyelogram 2. Extracorporeal shockwave lithotripsy to right mid ureteral stone 3. Right ureteral stent placement (7 Nigerian by 26 cm double-pigtail without string) Specimens removed/disposition: None Surgeon: Tam Inspector Government Property: [place] program technician Anesthesia: General Estimated blood loss: Less than 10 cc Urine output: Not measured Complications: None Findings: Stone could not be readily identified on fluoroscopy. With contrast injection though into the right ureter the stone was easily identified in the mid ureter. It had migrated approximately 5 to 6 inches distal to its previously identified position. Was able to be focused upon and treated with 2000 shocks with excellent change. Condition: stable Disposition: PACU Brief History: Mila is a very pleasant 50-year-old white female with a history of recurrent urolithiasis. She recently presented with a stone at the right UPJ that became severely symptomatic. She elected to get treated as opposed to try and pass it. It was about 4 to 5 mm in size. Preoperative KUB did not clearly show the stone although there was a hint in the mid ureter. Procedure: After routine preoperative evaluation examination and obtaining of informed consent she was taken to the operating suite on 11/02/2020 where general anesthesia was administered without difficulty after appropriate timeout was performed, SCDs confirmed to be functioning, preoperative antibiotics administered, beta-payal protocol confirmed. The fluoroscopy on the [facility] unit was then utilized to see if we could identify the stone. The stone was not readily seen with obliquing and AP positioning of the unit. At this point she was prepped and draped in usual sterile fashion in dorsolithotomy position pain careful attention avoiding pressure points. 21 Nigerian cystoscope with 30 degree lens was introduced into the urethral meatus and advanced into the bladder without difficulty. An 8 Nigerian cone-tip catheter was intubated to the RIGHT ureteral orifice for a RIGHT RETROGRADE URETEROPYELOGRAM. The ureter course and caliber was normal at about the mid ureter where a filling defect was identified consistent with the size of the stone seen on CT scan and follow-up imaging. The ureter proximal to that point was mildly dilated. The cone-tip was removed a flexible guidewire was advanced up the right ureter to several inches below the stone and an open ureteral catheter was advanced to the end of the guidewire and the wire removed. Contrast was then injected to confirm position. The scope was removed over the catheter. The shock head was then positioned anteriorly the stone brought to the focal point and shockwave therapy begun an intensity of 1 with an advancement in intensity of 4. Rate was at 70 and after good change was noted advanced to 90. A total of 2000 shocks utilized with good change. Fluoroscopy monitoring of contrast injection periodically throughout the procedure confirmed good position on the stone throughout. At the completion of the shockwave component a flexible tip guidewire was advanced through the open-ended ureteral catheter into the lower pole calyx catheter removed the cystoscope then backloaded over the flexible tip guidewire and a 7 Nigerian by 26 cm double-pigtail stent was advanced over the guidewire through the cystoscope into proper position as confirmed via fluoroscopy and cystoscopy. The stent was confirmed to be draining. There were a few very small sand-like particles emanating from the ureteral orifice just prior to the stent placement. They were so small it was hard to catch any of them. She tolerated the procedure well without complications and was awakened in the operating room and returned to the room in stable condition. PLANS: 1. Anticipate discharge from outpatient surgery today 2. Maintain stent for 1 week 3. Follow-up in roughly 1 week with a KUB first with anticipation of stent removal if all goes well. 4. She does have some pain medicine at home but has been instructed to call if she has enough pain that she runs through that before time for stent removal.
[2020-11-02 14:30] VITALS: BP 118/56; PULSE 70; RESP 22; O2SAT 98
[2020-11-02 14:35] VITALS: BP 119/59; PULSE 67; RESP 18; TEMP 36.4; O2SAT 97
[2020-11-02 14:42] VITALS: BP 136/72; PULSE 71; RESP 18; O2SAT 98
[2020-11-02] MEDS: HYDROcodone-acetaminophen 5-325 mg Tablet 1 TAB PO (15:15)
[2020-11-02] MEDS: ondansetron 2 mg/ML SDV 2 mL 4 MG IVP (15:15)
--- NOTE | 2020-11-02 16:44 | ANE.PACU2 ---
Inpatient post-anesthesia follow up: Airway intact: Yes Vital signs: Temperature 97.6 F Pulse Rate 71 Respiratory Rate 18 Blood Pressure 136/72 Pulse Oximetry 98 Oxygen Delivery Me thod Room Air Oxygen Flow Rate Fraction of Inspir ed Oxygen Hydration adequate: Yes Nausea and vomiting: No Pain level: 2 Mental status: Baseline
== END 2020-11-02 15:40 | disposition home or self-care (01) ==
PROVIDERS: PCP Family Medicine; Visit Provider Urology
PROC: 0TJB8ZZ Inspection of Bladder, Via Natural or Artificial Opening Endoscopic (ICD-10-PCS; CPT 52000; principal; 2020-11-02 12:00)
PROC: (CPT 50605; 2020-11-02 12:00)
PROC: (CPT 50590; 2020-11-02 12:00)
DX: N20.1 Calculus of ureter (principal); I10 Essential (primary) hypertension; F41.9 Anxiety disorder, unspecified; F32.9 Major depressive disorder, single episode, unspecified; M19.90 Unspecified osteoarthritis, unspecified site
CPT/HCPCS: 50590; 52332; 74018; 96374; C2625; J1100; J1956; J2250; J2405; J2704; J2710; J3010; J3490; J7030; Q9967

== ENCOUNTER 2020-11-10 07:43 | Outpatient (CLI) | payer BC, MEDICARE, SELFPAY ==
--- NOTE | 2020-11-10 08:15 | XR_ITS ---
WS: [id number] KUB, AP view, 11/10/2020 Clinical Data: UROLITHIASIS Comparison: KUB, 11/02/2020. Findings: No abnormal intraabdominal masses or calcifications are seen. There is no dilatated small bowel or ev idence of obstruction. There is a right ureteral stent in good position. There are phleboliths in the true pelvis. There are clips in the right upper quadrant from a cholecystectomy. There are surgical clips in the low pelvis from hernia repair. Fecal material and colon gas obscure detail over both kidneys. XR/XR KUB [id number] Impression: Right ureteral stent.
== END 2020-11-10 07:44 | disposition home or self-care (01) ==
PROVIDERS: PCP Family Medicine; Visit Provider Urology
DX: N20.2 Calculus of kidney with calculus of ureter (principal); Z96.0 Presence of urogenital implants; R31.0 Gross hematuria
CPT/HCPCS: 74018; 81003; 82365; 88300

== ENCOUNTER 2021-01-13 08:51 | Outpatient (CLI) | payer BC, MEDICARE, SELFPAY ==
--- NOTE | 2021-01-13 09:00 | XR_ITS ---
WS: [id number] XR KUB [id number] REASON FOR EXAM: UROLITHIASIS FINDINGS: Compared to the previous examination of 12/08/2020 the right ureteral stent is been removed. The previous proximal right ureteral calculus is no longer identified. At this time no urinary tract calculi are identified. No other significant abdominal abnormality is identified. XR/XR KUB [id number] IMPRESSION: No urinary tract calculi identified.
== END 2021-01-13 08:52 | disposition home or self-care (01) ==
PROVIDERS: PCP Family Medicine; Visit Provider Urology
DX: N20.1 Calculus of ureter (principal)
CPT/HCPCS: 74018; 81003; 87086

== ENCOUNTER → 2021-03-09 14:54 | Outpatient (BNVA) | payer BC, MEDICARE, SELFPAY | PROVIDERS: PCP Family Medicine; Visit Provider Physician Assistant | DX: M54.16 Radiculopathy, lumbar region (principal); G89.29 Other chronic pain | CPT/HCPCS: 72110 ==

== ENCOUNTER 2021-07-14 08:58 | Outpatient (CLI) | payer BC, MEDICARE, SELFPAY ==
--- NOTE | 2021-07-14 09:46 | XR_ITS ---
WS: [id number] XR chest 2V* [id number] REASON FOR EXAM: SHORTNESS OF BREATH FINDINGS: The chest is unchanged compared to 12/22/2019. Mild tortuosity thoracic aorta without aneurysmal dilatation. Normal heart size. Calcified granulomatous disease bilaterally. No active pulmonary parenchymal or pleural disease. Minimal degenerative spondylosis in the mid and lower thoracic spine. XR/XR chest 2V* [id number] IMPRESSION: No acute chest abnormality.
[2021-07-14 10:08] LABS: Basophils % 0.8 %; Eosinophils # 0.1 10^3/uL (0.0-0.8); Eosinophils % 2.9 %; Hematocrit 45.5 % (37.0-47.0); Hemoglobin 15.4 g/dL (11.5-15.3); Lymphocytes # 1.8 10^3/uL (0.8-4.8); Lymphocytes % 37.9 %; Mean Corpuscular HGB Conc 33.8 g/dL (30.0-36.0); Mean Corpuscular Hemoglobin 30.4 pg (28.0-34.0); Mean Corpuscular Volume 89.9 fl (81-99); Mean Platelet Volume 9.4 fL (7.4-10.4); Monocytes # 0.3 10^3/uL (0.2-0.9); Monocytes % 5.8 %; Neutrophils # 2.51 10^3/uL (1.8-7.7); Neutrophils % 52.4 %; Nucleated Red Blood Cells % 0 %; Platelet Count 337 10^3/cmm (130-400); Red Blood Count 5.06 10^6/uL (4.1-5.3); Red Cell Distribution Width 11.9 % (12.1-15.1); White Blood Count 4.8 10^3/uL (4.0-10.0)
[2021-07-14 10:17] LABS: Erythrocyte Sedimentation Rate 17 mm/hr (0-15)
[2021-07-14 10:38] LABS: D Dimer <= 0.27 ug/mIFEU (0-0.59)
[2021-07-14 10:41] LABS: Blood Urea Nitrogen 11 mg/dL (6-20); Calcium 9.7 mg/dL (8.5-10.5); Carbon Dioxide 23 mmol/L (22-29); Chloride 103 mmol/L (98-107); Glomerular Filtration Rate 105.4 mL/min (90-130); Glucose 90 mg/dL (65-115); Osmolality Calculated 287 mOsm/kg (285-295); Sodium 139 mmol/L (136-145)
[2021-07-14 12:52] LABS: Anion Gap 16.8 (5-19); Potassium 3.8 mmol/L (3.5-5.1)
== END 2021-07-14 08:59 | disposition home or self-care (01) ==
LOC: RAD 09:02
PROVIDERS: PCP Family Medicine; Visit Provider Clinical Nurse Specialist Adult Health
DX: R06.02 Shortness of breath (principal); B34.9 Viral infection, unspecified
CPT/HCPCS: 71046; 80048; 85025; 85378; 85651; 86140

== ENCOUNTER 2021-10-29 08:59 | Outpatient (CLI) | payer BC, MEDICARE, SELFPAY ==
--- NOTE | 2021-10-29 09:05 | MM_ITS ---
WS: [id number] BILATERAL SCREENING DIGITAL BREAST TOMOSYNTHESIS MAMMOGRAM WITH CAD HISTORY: SCREENING COMPARISON: 2020, 01/06/2020, 10/02/2019 and 01/02/2019 Bilateral CC and MLO views with tomosynthesis and synthetic mammography submitted. Computer aided det ection analyzed. Breast composition: There are scattered areas of fibroglandular density. No suspicious masses, microc alcifications or architectural distortion. Stable asymmetry in the medial RIGHT breast. MM/[place] [id number] IMPRESSION: BI-RADS: 2-Benign FOLLOW UP: 1 Year Follow-up
== END 2021-10-29 09:00 | disposition home or self-care (01) ==
LOC: RAD 09:00
PROVIDERS: PCP Family Medicine; Visit Provider Family Medicine
DX: Z12.31 Encounter for screening mammogram for malignant neoplasm of breast (principal)
CPT/HCPCS: 77063; 77067

== ENCOUNTER 2022-01-13 09:04 | Outpatient (CLI) | payer MEDICARE, BC, SELFPAY ==
--- NOTE | 2022-01-13 09:14 | XR_ITS ---
WS: [id number] XR KUB [id number] REASON FOR EXAM: Right Ureteral Calculus FINDINGS: No definite right renal calculi. Possible small intrarenal calculi on the left. Several small intrare nal calculi were demonstrated on the CT scan of 10/27/2020. No other urinary tract calculi are identified. The remainder of the abdomen and pelvis are unremarkable. XR/XR KUB [id number] IMPRESSION: Left intrarenal calculi as above.
== END 2022-01-13 09:05 | disposition home or self-care (01) ==
LOC: RAD 09:09
PROVIDERS: PCP Family Medicine; Visit Provider Urology
DX: N20.2 Calculus of kidney with calculus of ureter; N39.3 Stress incontinence (female) (male); N39.0 Urinary tract infection, site not specified
CPT/HCPCS: 74018; 81003; 99213

== ENCOUNTER 2022-02-03 07:41 | Emergency (ER) | payer MEDICARE, BC, SELFPAY ==
--- NOTE | 2022-02-03 07:46 | ED_ITS ---
HPI - URI/Sore Throat General: Chief Complaint: Headache Stated Complaint: Cough, sore throat Time Seen by Provider: 02/03/22 07:41 Source: patient Mode of arrival: ambulatory History of Present Illness: 51-year-old female presents emergency room with complaint of headache and cough for the last 2 days. Cough nonproductive. She denies any diarrhea. She has a bit of a sore throat as well. No vomiting no dysuria urgency or frequency cough is nonproductive. MD elicited complaint: cough and sore throat Onset (ago): day(s) (3) Consistency: constant Severity: mild Exacerbating factors: nothing Relieving factors: nothing Associated symptoms: Reports congestion, cough, headache(s), myalgias and sore throat; Deny abdominal pain, change in voice, chills, chest pain, diarrhea, epistaxis, ear or mastoid pain, fever(s), nasal congestion, nausea, rash, rhinorrhea, short of breath, sinus pain, stiffness or vomiting Review of Systems Const: Denies: fever(s), chills, body aches, change in appetite, fatigue or malaise ENMT: Denies: throat pain, ear or mastoid pain, nasal discharge, nasal congestion, epistaxis or sinus pain Card: Denies: chest pain, edema, dyspnea on exertion or orthopnea Resp: Denies: dyspnea, productive cough or non-productive cough GI: Denies: abdominal pain, nausea, vomiting, hematemesis, coffee ground emesis, diarrhea, constipation, bloating, hematochezia or melena : Denies: flank pain, difficulty voiding, dysuria, urinary frequency or urinary urgency Skin/Breast: Denies: rash or pruritus Neuro: Reports: headache(s) PFSH ED PFSH: Medical History Abnormal mammogram of right breast Arnold-Chiari malformation Breast pain, left DDD (degenerative disc disease) Dyspareunia, female Gross hematuria Hypertension Lupus Recurrent UTI Urgency incontinence Urolithiasis Surgical History H/O bladder repair surgery H/O brain surgery (~2002) tx for chiari H/O knee surgery multiple arthroscopies on both knees H/O laparoscopy (~1995) - 03/27/1996. Laparoscopy. Dr. Cleveland Magana. Adhesiolysis. Fulguration of endometriosis. No tissue for pathology. 10/03/1997. Laparoscopy. Dr. Cleveland Magana. Adhesio lysis. Fulguration of endometriosis. Appendectomy, with benign pathology. History of appendectomy (~1999) History of bilateral oophorectomy a few years after hyst History of hysterectomy (~1999) History of partial knee replacement (~2009) right Hx of cholecystectomy Family History Grandmother Breast cancer, Onset Age: 50 MATERNAL Stroke PATERNAL Father , AGE 64 Diabetes Hypertension Alcohol abuse Family/Other Patient denies medical problems uterine/ovarian/colon cancer, thyroid, hypercholesterolemia,heart disease Social History Smoking and tobacco status: never smoked Alcohol intake: never Marital status: Current occupational status: unemployed History of recent travel: No Physical Exam Const: COMMON NORMALS: no acute distress GENERAL APPEARANCE: cooperative and comfortable ORIENTATION/CONSCIOUSNESS: Yes awake, Yes oriented to person, Yes oriented to place and Yes oriented to time HENMT: COMMON NORMALS: normocephalic, atraumatic, hearing grossly normal bilaterally, external ears normal, EAC's normal, TM's normal bilaterally, Normal nasal mucous membranes and turbinates present, moist oral mucous membranes and oropharynx normal HEAD & SCALP: normocephalic and atraumatic NOSE: Normal nasal mucous membranes and turbinates present EXTERNAL EAR: Yes external ears normal EXTERNAL AUDITORY CANAL: EAC's normal TYMPANIC MEMBRANE: TM's normal bilaterally Eye: COMMON NORMALS: Equal, round and reactive pupils present, EOMs intact bilaterally, conjunctivae normal and no scleral icterus CONJUNCTIVA: Yes conjunctivae normal PUPIL: Yes Equal, round and reactive pupils present Neck/C-Spine: COMMON NORMALS: full ROM, no lymphadenopathy and supple Lymph: LYMPHATIC: no lymphadenopathy noted and no lymphedema noted Resp: COMMON NORMALS: normal respiratory effort, No retractions, No use of accessory muscles and clear to auscultation bilaterally AUSCULTATION: clear to auscultation bilaterally Cardio: COMMON NORMALS: regular rate, regular rhythm and No murmurs present (Cardio) RATE: regular rate RHYTHM: regular rhythm GI: COMMON NORMALS: Soft to palpation and No hepatosplenomegaly present AUSCULTATION: Yes normoactive bowel sounds PALPATION: Yes Soft to palpation, No Tenderness to palpation present (GI), No Guarding due to palpation present (GI) and Yes No hepatosplenomegaly present Extremity: COMMON NORMALS: normal to inspection, capillary refill normal, no clubbing, cyanosis or edema, no calf tenderness and no pedal edema Neuro: SENSORIUM/ORIENTATION: Yes oriented to person, Yes oriented to place and Yes oriented to time Skin: COMMON NORMALS: no rashes or lesions noted GENERAL SKIN EXAM: no rashes or lesions noted Course Vital Signs: Vital signs: Vital Signs Temperature 97.7 F 02/03/22 11:00 Pulse Rate 80 02/03/22 11:00 Respiratory Rate 18 02/03/22 11:00 Blood Pressure 129/69 02/03/22 11:00 Pulse Oximetry 96 02/03/22 11:00 Oxygen Delivery Me thod 02/03/22 07:54 MDM - URI/Sore Throat Medical Decision Making Neurologically she is intact there is no sign of stroke or TIA. She has no functional or localizing deficits. No ataxia as she does not have any significant vomiting. Strep was negative her COVID was positive think that is a precipitation for all of her symptoms discussed risks and benefits of Paxlovid she wishes to proceed care instructions given. She should remain self quarantine until she is at least 5 days post onset of symptoms and 24 hours no fever and improving symptoms. Medical Records I reviewed the patient's medical records. Lab Data I reviewed the patient's lab results. Laboratory Results Nasal Influ A H1 2009 PCR Not detected (NOT DETECT) 02/03/22 08:05 Coronavirus 229E (PCR) Not detected (NOT DETECT) 02/03/22 08:05 Influenza A (H1) PCR Not detected (NOT DETECT) 02/03/22 08:05 Influenza A (H3) PCR Not detected (NOT DETECT) 02/03/22 08:05 Influenza Type A Ag Cancelled 02/03/22 08:05 Influenza Type A (PCR) Not detected (NOT DETECT) 02/03/22 08:05 Influenza Type B Ag Cancelled 02/03/22 08:05 Influenza Type B (PCR) Not detected (NOT DETECT) 02/03/22 08:05 SARS-CoV-2 (PCR) Detected (NOT DETECT) A 02/03/22 08:05 Group A Strep Rapid Negative (Negative) 02/03/22 08:05 Discharge Plan Discharge Patient Disposition: Home Clinical Impression: COVID-19 Condition: Stable Prescriptions: New Paxlovid (EUA) 300 mg (150 mg x 2)-100 mg tablets,dose pack See Rx Instructions .ROUTE .COMPLEX Qty: 30 0RF Rx Instructions: orally per package directions No Action amitriptyline 25 mg tablet 25 mg PO BEDTIME PRN (Reason: Headache) amlodipine 5 mg tablet 5 mg PO DAILY tolterodine 4 mg capsule,extended release 24hr 4 mg PO DAILY Qty: 30 12RF pantoprazole 40 mg tablet,delayed release (DR/EC) 40 mg PO DAILY Qty: 30 4RF duloxetine 60 mg capsule,delayed release(DR/EC) 60 mg PO DAILY Qty: 30 0RF lorazepam 1 mg tablet 1 mg PO TID PRN (Reason: Anxiety) Qty: 90 5RF Discharge Orders: Discharge ED (Routine); Ordered 02/03/22 Ordered By: Rahul Monroe Referrals: Robert Lu DO [Primary Care Provider] - Patient Instructions: COVID-19 (Coronavirus Disease 2019) (ED), Opioid Safety, Pain Management Coding Level of Care Code 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
[2022-02-03 07:50] VITALS: BP 131/82; PULSE 80; RESP 20; TEMP 36.5; O2SAT 98; BMI 31.3
[2022-02-03 07:54] VITALS: PULSE 82; RESP 18; TEMP 36.5; O2SAT 96
[2022-02-03 08:30] LABS: Rapid Strep A Test Negative (Negative)
[2022-02-03] MEDS: acetaminophen 500 mg Tablet 1000 MG PO (08:41)
[2022-02-03] MEDS: sodium chloride 0.9% 1,000 ML 999 ML IV (09:02)
[2022-02-03 10:06] LABS: Adenovirus Not Detected (NOT DETECT); Chlamydia Pneumoniae Not Detected (NOT DETECT); Coronavirus 229E,HKU1,NL63,OC4 Not Detected (NOT DETECT); Human Metapneumovirus Not Detected (NOT DETECT); Human Rhinovirus/Enterovirus Not Detected (NOT DETECT); Influenza A Not Detected (NOT DETECT); Influenza A H1 Not Detected (NOT DETECT); Influenza A H1-2009 Not Detected (NOT DETECT); Influenza A H3 Not Detected (NOT DETECT); Influenza B Not Detected (NOT DETECT); Mycoplasma Pneumoniae Not Detected (NOT DETECT); Parainfluenza Virus Type 1 Not Detected (NOT DETECT); Parainfluenza Virus Type 2 Not Detected (NOT DETECT); Parainfluenza Virus Type 3 Not Detected (NOT DETECT); Parainfluenza Virus Type 4 Not Detected (NOT DETECT); Respiratory Syncytial Virus A Not Detected (NOT DETECT); Respiratory Syncytial Virus B Not Detected (NOT DETECT); Results from Genmark; SARS-COV-2 Detected (NOT DETECT)
[2022-02-03 11:00] VITALS: BP 129/69; PULSE 80; RESP 18; TEMP 36.5; O2SAT 96
== END 2022-02-03 11:13 | disposition home or self-care (01) ==
PROVIDERS: Emergency Provider Family Medicine; PCP Family Medicine
DX: U07.1 COVID-19 (principal); I10 Essential (primary) hypertension
CPT/HCPCS: 87081; 87631; 87635; 87880; 96360; 99284; J7030

== ENCOUNTER 2022-02-21 09:03 | Outpatient (CLI) | payer MEDICARE, BC, SELFPAY ==
--- NOTE | 2022-02-21 09:15 | US_ITS ---
WS: [id number] ULTRASOUND ABDOMEN CLINICAL INFORMATION: chronic ab pain, with acute worsening COMPARISON: None. FINDINGS: Liver Size: Mild hepatomegaly. Craniocaudal length: 16.8 cm. Echogenicity: Coarse Surface nodularity: None. Mass (size and location): None. Bile ducts Intrahepatic ducts: Normal. Common bile duct diameter: 0.5 cm. Gallbladder Removed Pancreas Normal as visualized. Spleen Splenomegaly: Mild. Craniocaudal length: 12.2 cm. Right kidney: Normal. Hydronephrosis: None. Size: 11.8 cm x 5.9 cm x 4.1 cm Left kidney: Normal. Hydronephrosis: None. Size: 10.7 cm x 5.4 cm x 5.0 cm. Abdominal aorta and IVC Visualized portions are normal. Ascites: None. US/US abdomen complete* [id number] IMPRESSION: 1. Liver size upper limits of normal. Mild diffuse fatty infiltration. 2. Prior cholecystectomy. 3. Mild splenomegaly measuring 12.2 CM. 4. Otherwise normal exam.
== END 2022-02-21 09:04 | disposition home or self-care (01) ==
LOC: RAD 09:04
PROVIDERS: PCP Family Medicine; Visit Provider Family Medicine
DX: R10.9 Unspecified abdominal pain (principal); K76.0 Fatty (change of) liver, not elsewhere classified; R16.1 Splenomegaly, not elsewhere classified; Z90.49 Acquired absence of other specified parts of digestive tract
CPT/HCPCS: 76700

== ENCOUNTER 2022-05-24 08:07 | Outpatient (CLI) | payer BC, MEDICARE, SELFPAY ==
--- NOTE | 2022-05-24 08:26 | MM_ITS ---
WS: [id number] ADDITIONAL VIEWS LEFT MAMMOGRAM with tomosynthesis. LEFT BREAST ULTRASOUND HISTORY: LT BREAST MASS COMPARISON: 10/29/2021, 01/06/2020 LEFT MAMMOGRAM: Spot compression views and true ML with tomosynthesis and sympathetic mammography. No abnormality is noted within the LEFT breast. Marker is placed along the anterior superior LEFT bryce ast near the nipple. There is no underlying soft tissue mass. Ultrasound to be performed. LEFT BREAST ULTRASOUND 2-D and color Doppler imaging submitted. No ultrasound abnormality at 12:00 in the area of concern. MM/[place] [id number] IMPRESSION: BI-RADS: 2-Benign FOLLOW UP: 1 Year Follow-up
== END 2022-05-24 08:08 | disposition home or self-care (01) ==
LOC: RAD 08:07
PROVIDERS: PCP Family Medicine; Visit Provider Nurse Practitioner Family
DX: N63.25 Unspecified lump in the left breast, overlapping quadrants (principal)
CPT/HCPCS: 76642; 77061; G0279

== ENCOUNTER 2022-09-07 10:23 | Emergency (ER) | payer BC, MEDICARE, SELFPAY ==
[2022-09-07 10:49] VITALS: BP 144/103; PULSE 89; RESP 17; TEMP 36.8; O2SAT 97; BMI 34.4
--- NOTE | 2022-09-07 11:50 | ED_ITS ---
HPI - General Adult General: Chief complaint: General Medical Stated complaint: thinks potassium is low Time Seen by Provider: 09/07/22 11:34 Source: patient Mode of arrival: ambulatory Limitations: no limitations History of Present Illness: Patient is a 52-year-old female presents to ED today with a complaint that she feels like her potassium is low. Patient states she has had low potassium previously that has felt similar. She is complaining of diffuse muscle weakness. She has also noticed right eye twitching. No changes in her vision. She has not noticed any drooping to the eyelid. She also noticed today when physical therapy was at her home (patient recently had total knee replacement of the right knee) she noticed that her mouth and jaw seemed sore when she was talking. Patient has not noticed any localizing or lateralizing weakness or deficits. She has not noticed any facial drooping or slurred speech. Patient has a history of Arnold-Chiari malformation. She has a neurologist that she sees in [place]. Onset (ago): day(s) Severity: mild Relieving factors: none Exacerbating factors: none Associated symptoms: Reports headache(s) (intermittent/chronic); Deny chest pain, confusion, dyspnea, malaise, nausea, rash, palpitations, syncope or vomiting Treatments prior to arrival: none Review of Systems Const: Denies: fever(s), chills, body aches, fatigue or malaise Eyes: Reports: other (R eye twitching); Denies: change in vision, blurry vision, photophobia, floaters or seeing flashes ENMT: Reports: other (reports pain/weakness around perioral region); Denies: throat pain, odynophagia, nasal discharge, nasal congestion, post nasal drip or sinus pain Card: Denies: chest pain, palpitations, irregular heart rhythm, lightheadedne ss, syncope or dyspnea on exertion Resp: Denies: dyspnea, productive cough or pain on inspiration GI: Denies: abdominal pain, nausea, vomiting, heartburn or diarrhea : Denies: dysuria Musc: Reports: muscle weakness; Denies: neck pain, back pain, extremity pain, extremity swelling, joint pain, joint swelling, joint redness, joint warmth, joint stiffness, limited range of motion, muscle cramps or decrease in muscle mass Skin/Breast: Denies: rash Neuro: Reports: headache(s) (intermittent/chronic); Denies: numbness in extremities, weakness in extremities, sensory changes, lack of coordination, difficulty walking, frequent falls, dizziness, vertigo, confusion, Slurred speech present, difficulty communicating thoughts, seizure- like activity or involuntary movements PFSH ED PFSH: Medical History Abnormal mammogram of right breast Arnold-Chiari malformation Breast pain, left DDD (degenerative disc disease) Dyspareunia, female Gross hematuria Hypertension Lupus Recurrent UTI Urgency incontinence Urolithiasis Surgical History H/O bladder repair surgery H/O brain surgery (~2002) tx for chiari H/O knee surgery multiple arthroscopies on both knees H/O laparoscopy (~1995) - 03/27/1996. Laparoscopy. Dr. Cleveland AGUILERA. Adhesiolysis. Fulguration of endometriosis. No tissue for pathology. 10/03/1997. Laparoscopy. Dr. Cleveland AGUILERA. Adhesio lysis. Fulguration of endometriosis. Appendectomy, with benign pathology. History of appendectomy (~1999) History of bilateral oophorectomy a few years after hyst History of hysterectomy (~1999) History of partial knee replacement (~2009) right Hx of cholecystectomy Family History Grandmother Breast cancer, Onset Age: 50 MATERNAL Stroke PATERNAL Father , AGE 64 Diabetes Hypertension Alcohol abuse Family/Other Patient denies medical problems uterine/ovarian/colon cancer, thyroid, hypercholesterolemia,heart disease Social History Smoking and tobacco status: never smoked Alcohol intake: never Substance/Drug Use: never Marital status: Current occupational status: unemployed Physical Exam Const: COMMON NORMALS: no acute distress, average body habitus, patient oriented x3, no limitations, healthy appearing, alert and well nourished GENERAL APPEARANCE: cooperative ORIENTATION/CONSCIOUSNESS: Yes awake, Yes oriented to person, Yes oriented to place and Yes oriented to time HENMT: COMMON NORMALS: normocephalic and atraumatic HEAD & SCALP: normal to inspection, normocephalic and atraumatic FACE & SINUS: normal facial exam MOUTH: Normal oral and palatal mucosa present, lip normal and tongue normal Eye: COMMON NORMALS: Equal, round and reactive pupils present, EOMs intact bilaterally and conjunctivae normal GENERAL EYE: appearance normal, both eyes and all related structures and normal light reflex PERIORBITAL: periorbital findings normal EYELID: eyelids normal CONJUNCTIVA: Yes conjunctivae normal PUPIL: Yes Equal, round and reactive pupils present DIRECT OPHTHALMOSCOPY: Yes normal light reflex OTHER: no ptosis noted; tested fatiguability by having patient sustain upward gaze and still no ptosis noted Neck/C-Spine: COMMON NORMALS: full ROM, no lymphadenopathy, supple and no meningeal signs Chest: COMMONS NORMALS: normal inspection of the chest Resp: COMMON NORMALS: normal respiratory effort and clear to auscultation bilaterally AUSCULTATION: clear to auscultation bilaterally Cardio: COMMON NORMALS: regular rate and regular rhythm RATE: regular rate RHYTHM: regular rhythm GI: COMMON NORMALS: Normal to inspection, nondistended, normoactive bowel sounds present, Soft to palpation, non-tender, No hepatosplenomegaly present and no masses PALPATION: Yes Soft to palpation and Yes No hepatosplenomegaly present : COMMON NORMALS: Yes no CVA tenderness BLADDER/KIDNEY EXAM: Yes no CVA tenderness Back/Pelvis: COMMON NORMALS: no CVA tenderness and thoracic and lumbar spine normal to inspection Extremity: COMMON NORMALS: normal to inspection, capillary refill normal, no joint enlargement, no clubbing, cyanosis or edema, no calf tenderness and no pedal edema GENERAL: Yes normal exam except as noted RIGHT LOWER EXTREMITY: Yes knee joint (recent TKA incision looks clean) Neuro: LUCÍA COMA SCALE: document GCS findings Lucía coma scale eye opening: Spontaneous [place] coma scale verbal response: Orientated [place] coma scale motor response: Obey commands Lucía coma scale total score: 15 COMMON NORMALS: patient oriented x3, moves all extremities, no focal motor deficits, no sensory deficits noted and deep tendon reflexes 2+ bilaterally SENSORIUM/ORIENTATION: Yes alert, Yes oriented to person, Yes oriented to place and Yes oriented to time MENINGEAL SIGNS: Yes no meningeal signs SPEECH: speech normal MOTOR EXAM: 5/5 motor strength present throughout (throughout bilateral UEs) and Abnormal motor strength present (not tested to R LE due to recent knee surgery; slightly decreased in L) Skin: COMMON NORMALS: no rashes or lesions noted GENERAL SKIN EXAM: no rashes or lesions noted Course Vital Signs: Vital signs: Vital Signs Temperature 98.2 F 09/07/22 10:49 Pulse Rate 70 09/07/22 13:00 Respiratory Rate 17 09/07/22 10:49 Blood Pressure 150/102 09/07/22 13:00 Pulse Oximetry 95 09/07/22 13:00 Oxygen Delivery Me thod Room Air 09/07/22 13:00 MDM - General Adult Medical Decision Making At this time I do not appreciate any focal neurologic deficits to suggest TIA/CVA. Patient is not having any shortness of breath/trouble breathing or trouble swallowing. Potassium was mildly low at 3.4. She was given a dose here and she will be put on oral potassium at home over the next 5 days. Consideration for symptoms to be related to other disorder such as myasthenia gravis, multiple sclerosis, or her known Arnold Chiari malformation. Point I would like her to follow-up with her neurologist in [place]. She states it has been a while since she saw them so she is not sure if she is still an established patient there. If she cannot get into them (we will have case man agement on this as well) and she is requesting to see Dr. Dewitt here. Strict return ED precautions given. Lab Data 09/07/22 12:00 09/07/22 12:00 Laboratory Results WBC 6.9 10^3/uL (4.0-10.0) 09/07/22 12:00 RBC 4.96 10^6/uL (4.1-5.3) 09/07/22 12:00 Hgb 14.6 g/dL (11.5-15.3) 09/07/22 12:00 Hct 45.1 % (37.0-47.0) 09/07/22 12:00 MCV 90.9 fl (81-99) 09/07/22 12:00 MCH 29.4 pg (28.0-34.0) 09/07/22 12:00 MCHC 32.4 g/dL (30.0-36.0) 09/07/22 12:00 RDW 12.1 % (12.1-15.1) 09/07/22 12:00 Plt Count 346 10^3/cmm (130-400) 09/07/22 12:00 MPV 9.5 fL (7.4-10.4) 09/07/22 12:00 Neut % (Auto) 55.2 % 09/07/22 12:00 Lymph % (Auto) 31.0 % 09/07/22 12:00 Tucker % (Auto) 11.1 % 09/07/22 12:00 Eos % (Auto) 1.7 % 09/07/22 12:00 Baso % (Auto) 0.6 % 09/07/22 12:00 Neut # (Auto) 3.78 10^3/uL (1.8-7.7) 09/07/22 12:00 Lymph # (Auto) 2.1 10^3/uL (0.8-4.8) 09/07/22 12:00 Tucker # (Auto) 0.8 10^3/uL (0.2-0.9) 09/07/22 12:00 Eos # (Auto) 0.1 10^3/uL (0.0-0.8) 09/07/22 12:00 Baso # (Auto) 0.0 10^3/uL (0.0-0.1) 09/07/22 12:00 Nucleated RBC % (auto) 0 % 09/07/22 12:00 Nucleated RBCs # 0.0 /100WBC 09/07/22 12:00 Sodium 142 mmol/L (136-145) 09/07/22 12:00 Potassium 3.4 mmol/L (3.5-5.1) L 09/07/22 12:00 Chloride 105 mmol/L (98-107) 09/07/22 12:00 Carbon Dioxide 24 mmol/L (22-29) 09/07/22 12:00 Anion Gap 16.4 (5-19) 09/07/22 12:00 BUN 9 mg/dL (6-20) 09/07/22 12:00 Creatinine 0.7 mg/dL (0.5-0.9) 09/07/22 12:00 GFR Calculation 87.9 mL/min (90-130) L 09/07/22 12:00 Glucose 84 mg/dL (65-115) 09/07/22 12:00 Calculated Osmolality 292 mOsm/kg (285-295) 09/07/22 12:00 Calcium 9.8 mg/dL (8.5-10.5) 09/07/22 12:00 Magnesium 2.0 mg/dL (1.7-2.3) 09/07/22 12:00 Total Bilirubin 0.4 mg/dL (0.15-1.2) 09/07/22 12:00 AST 20 U/L (0-32) 09/07/22 12:00 ALT 17 U/L (0-33) 09/07/22 12:00 Alkaline Phosphatase 103 U/L (35-105) 09/07/22 12:00 Creatine Kinase 68 U/L (26-192) 09/07/22 12:00 Total Protein 8.0 g/dL (6.6-8.7) 09/07/22 12:00 Albumin 4.7 g/dL (3.5-5.2) 09/07/22 12:00 Globulin 3.3 g/dL (1.3-4.6) 09/07/22 12:00 Discharge Plan Discharge Patient Disposition: Home Clinical Impression: Arnold-Chiari malformation, Muscle weakness, Hypokalemia Condition: Stable Prescriptions: New potassium chloride 20 mEq tablet extended release 20 meq PO BID Qty: 10 0RF No Action tolterodine 4 mg capsule,extended release 24hr 4 mg PO DAILY Qty: 30 12RF pantoprazole 40 mg tablet,delayed release (DR/EC) 40 mg PO DAILY Qty: 30 4RF prednisone 20 mg tablet See Rx Instructions PO DAILY Qty: 15 0RF Rx Instructions: 2 po qday x 5 days, then 1 po qday x 5 days then stop, for inflammation albuterol sulfate 90 mcg/actuation HFA aerosol inhaler 2 puff inhalation Q6H PRN (Reason: shortness of breath or wheezing) Qty: 8.5 2RF amitriptyline 25 mg tablet 50 mg PO BEDTIME PRN (Reason: Headache) Qty: 90 1RF amlodipine 5 mg tablet 5 mg PO DAILY Qty: 90 3RF lorazepam 1 mg tablet 1 mg PO TID PRN (Reason: Anxiety) Qty: 90 5RF duloxetine 60 mg capsule,delayed release(DR/EC) 60 mg PO BID Qty: 60 1RF Paxlovid (EUA) 300 mg (150 mg x 2)-100 mg tablets,dose pack See Rx Instructions .ROUTE .COMPLEX Qty: 30 0RF Rx Instructions: orally per package directions Discharge Orders: Discharge ED (Routine); Ordered 09/07/22 Ordered By: Desiree Arce Referrals: Robert Lu DO [Primary Care Provider] - Activity Restrictions/Additional Instructions: As we discussed you need to return to the emergency department for worsening muscle weakness or fatigue, inability to chew or swallow or control secretions, any difficulty breathing, severe headache, trouble with speech or ambulating, or any other concerns you may have. As we discussed I will have case management work on getting you set up with neurology-either with the neurologist you have seen previously in [place] or with Dr. Dewitt here. Coding Level of Care Code ED Cost Estimating Engineer for Sara Kamara
[2022-09-07 12:16] LABS: Basophils % 0.6 %; Eosinophils # 0.1 10^3/uL (0.0-0.8); Eosinophils % 1.7 %; Hematocrit 45.1 % (37.0-47.0); Hemoglobin 14.6 g/dL (11.5-15.3); Lymphocytes # 2.1 10^3/uL (0.8-4.8); Mean Corpuscular HGB Conc 32.4 g/dL (30.0-36.0); Mean Corpuscular Hemoglobin 29.4 pg (28.0-34.0); Mean Corpuscular Volume 90.9 fl (81-99); Mean Platelet Volume 9.5 fL (7.4-10.4); Monocytes # 0.8 10^3/uL (0.2-0.9); Monocytes % 11.1 %; Neutrophils # 3.78 10^3/uL (1.8-7.7); Neutrophils % 55.2 %; Nucleated Red Blood Cells % 0 %; Platelet Count 346 10^3/cmm (130-400); Red Blood Count 4.96 10^6/uL (4.1-5.3); Red Cell Distribution Width 12.1 % (12.1-15.1); White Blood Count 6.9 10^3/uL (4.0-10.0)
[2022-09-07 12:23] VITALS: BP 136/95; PULSE 75; O2SAT 100
[2022-09-07 12:30] VITALS: BP 138/104; PULSE 66; O2SAT 94
[2022-09-07 12:34] LABS: Alanine Aminotransferase 17 U/L (0-33); Albumin Level 4.7 g/dL (3.5-5.2); Alkaline Phosphatase 103 U/L (35-105); Aspartate Amino Transferase 20 U/L (0-32); Blood Urea Nitrogen 9 mg/dL (6-20); Calcium 9.8 mg/dL (8.5-10.5); Carbon Dioxide 24 mmol/L (22-29); Chloride 105 mmol/L (98-107); Creatine Phosphokinase 68 U/L (26-192); Creatinine Clr Calc Pharmacy 114.0937; Globulin 3.3 g/dL (1.3-4.6); Glomerular Filtration Rate 87.9 mL/min (90-130); Glucose 84 mg/dL (65-115); Osmolality Calculated 292 mOsm/kg (285-295); Sodium 142 mmol/L (136-145); Total Bilirubin 0.4 mg/dL (0.15-1.2)
[2022-09-07 12:36] LABS: Anion Gap 16.4 (5-19); Potassium 3.4 mmol/L (3.5-5.1)
[2022-09-07 13:00] VITALS: BP 150/102; PULSE 70; O2SAT 95
[2022-09-07] MEDS: sodium chloride 0.9% 1,000 ML 999 ML IV (13:03)
[2022-09-07] MEDS: potassium chloride ER 20 mEq Tablet 40 MEQ PO (13:21)
--- NOTE | 2022-09-08 08:39 | DCPLANNER ---
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 Original Note: condominium property manager had message to schedule a follow up appointment for patient with neurology. condominium property manager sent patients information to the front office staff at neurology. Patients information will be printed and reviewed. Clinic will call patient with appointment information.
== END 2022-09-07 14:03 | disposition home or self-care (01) ==
PROVIDERS: Emergency Medicine; Emergency Provider Physician Assistant; PCP Family Medicine
DX: Q07.00 Arnold-Chiari syndrome without spina bifida or hydrocephalus (principal); R53.1 Weakness; E87.6 Hypokalemia; I10 Essential (primary) hypertension; M32.9 Systemic lupus erythematosus, unspecified
CPT/HCPCS: 36415; 80053; 82550; 83735; 85025; 99283; J7030

== ENCOUNTER 2022-11-15 08:09 | Outpatient (CLI) | payer BC, MEDICARE, SELFPAY ==
--- NOTE | 2022-11-15 08:21 | MM_ITS ---
WS: [id number] BILATERAL 3D TOMOSYNTHESIS DIGITAL SCREENING MAMMOGRAPHY WITH CAD CLINICAL INFORMATION: SCREENING HISTORY: Screening mammogram. Right breast pain COMPARISON: 05/24/2022 TECHNIQUE: Bilateral CC and MLO views. FINDINGS: Scattered fibroglandular densities bilaterally. No suspicious focal mass, asymmetry, calcifications, or architectural distortion. No evidence of malignancy. IMPRESSION: MM/[place] [id number] BI-RADS: 2-Benign FOLLOW UP: 1 Year Follow-up Recommend return to annual screening mammography.
== END 2022-11-15 08:10 | disposition home or self-care (01) ==
PROVIDERS: PCP Family Medicine; Visit Provider Family Medicine
DX: Z12.31 Encounter for screening mammogram for malignant neoplasm of breast (principal)
CPT/HCPCS: 77063; 77067

== ENCOUNTER 2022-12-14 20:00 | Outpatient (CLI) | payer BC, MEDICARE, SELFPAY | END 2022-12-14 20:01 | disposition home or self-care (01) | LOC: SLEEP 12-15 04:19 | PROVIDERS: PCP Family Medicine; Visit Provider Family Medicine | DX: G47.33 Obstructive sleep apnea (adult) (pediatric) (principal); R40.0 Somnolence; R06.83 Snoring | CPT/HCPCS: 95810 ==

== ENCOUNTER → 2023-01-11 07:55 | Outpatient (BNVA) | payer BC, MEDICARE, SELFPAY | PROVIDERS: PCP Family Medicine; Visit Provider Nurse Practitioner Family | DX: M79.671 Pain in right foot (principal) | CPT/HCPCS: 73630 ==

== ENCOUNTER → 2023-04-20 11:58 | Outpatient (BNVA) | payer MEDICARE, SELFPAY | PROVIDERS: PCP Family Medicine; Visit Provider Family Medicine | DX: I10 Essential (primary) hypertension (principal); K21.9 Gastro-esophageal reflux disease without esophagitis; N95.2 Postmenopausal atrophic vaginitis; G47.33 Obstructive sleep apnea (adult) (pediatric); R73.9 Hyperglycemia, unspecified; E03.9 Hypothyroidism, unspecified | CPT/HCPCS: 80053; 82607; 83036; 84443 ==

== ENCOUNTER → 2023-06-06 10:59 | Outpatient (BNVA) | payer MEDICARE, SELFPAY | PROVIDERS: PCP Family Medicine; Visit Provider Family Medicine | DX: E55.9 Vitamin D deficiency, unspecified (principal); F32.9 Major depressive disorder, single episode, unspecified; I10 Essential (primary) hypertension; M32.9 Systemic lupus erythematosus, unspecified; G47.33 Obstructive sleep apnea (adult) (pediatric); M19.90 Unspecified osteoarthritis, unspecified site; E03.9 Hypothyroidism, unspecified | CPT/HCPCS: 80053; 82607; 82652; 84443; 85025; 85651; 86140; 86160; 86162; 86235; 86255; 86376 ==

== ENCOUNTER 2023-08-23 19:45 | Emergency (ER) | payer MEDICARE, OTHER, SELFPAY ==
[2023-08-23 19:49] VITALS: BP 154/97; PULSE 81; RESP 16; TEMP 36.4; O2SAT 94
[2023-08-23 20:49] LABS: Basophils % 0.5 %; Eosinophils # 0.1 10^3/uL (0.0-0.8); Eosinophils % 1.5 %; Hematocrit 39.7 % (36-47); Lymphocytes # 3.3 10^3/uL (0.8-4.8); Lymphocytes % 38.8 %; Mean Corpuscular HGB Conc 34.5 g/dL (30-55); Mean Corpuscular Hemoglobin 30.9 pg (27-33); Mean Corpuscular Volume 89.4 fl (85-98); Mean Platelet Volume 9.5 fL (7.4-10.4); Monocytes # 0.8 10^3/uL (0.2-0.9); Monocytes % 9.3 %; Neutrophils # 4.28 10^3/uL (1.8-7.7); Neutrophils % 49.7 %; Nucleated Red Blood Cells % 0 %; Platelet Count 364 10^3/cmm (157-399); Red Blood Count 4.44 10^6/uL (3.85-5.65); White Blood Count 8.61 10^3/uL (3.29-11.43)
--- NOTE | 2023-08-23 20:57 | CTR_ITS ---
PROCEDURE INFORMATION: Exam: CT Abdomen And Pelvis Without Contrast Exam date and time: 08/23/2023 9:25 PM Age: 53 years old Clinical indication: Abdominal pain; Flank; Left; Prior surgery; Surgery date: 6+ months; Surgery type: Hyst, lithotrippsy; Additional info: R flank pain TECHNIQUE: Imaging protocol: Computed tomography of the abdomen and pelvis without contrast. Radiation optimization: All CT scans at this facility use at least one of these dose optimization techniques: automated exposure control; mA and/or kV adjustment per patient size (includes targeted exams where dose is matched to clinical indication); or iterative reconstruction. COMPARISON: CT kidney stone [id number] 10/27/2020 10:02 AM RADIATION DOSE METRICS: Total DLP (mGy-cm): 1012.53 FINDINGS: Lungs: Subsegmental bibasilar atelectasis. The visualized lung bases are otherwise clear. Diaphragm: No evidence of diaphragmatic defect. Liver: Hepatic steatosis. No focal hepatic lesion within limitations of a noncontrast exam. Gallbladder and bile ducts: Status post cholecystectomy. No evidence of intrahepatic or extrahepatic biliary dilatation. Pancreas: Grossly unremarkable. Spleen: Grossly unremarkable. Adrenal glands: Grossly unremarkable. Kidneys and ureters: Multiple nonobstructive renal stones bilaterally measuring up to 7 mm on the right. No hydronephrosis or ureteral stone. Very mild caliectasis on the right. Stomach and bowel: No evidence of bowel obstruction or perienteric inflammatory changes. Appendix: The appendix is not visualized, however there are no findings to suggest appendicitis. Intraperitoneal space: No evidence of free air or fluid collection. Vasculature: No evidence of aneurysmal dilitation of abdominal aorta. Lymph nodes: No evidence of adenopathy. Urinary bladder: Grossly unremarkable. Reproductive: Prior hysterectomy . Bones/joints: No evidence of acute fracture or aggresive osseous lesion. L5 pars defects. Soft tissues: No evidence of fluid collection or hematoma in the superficial soft tissues. CT/CT kidney stone [id number] IMPRESSION: 1. No evidence of acute abnormality in the abdomen or pelvis within limitations of a noncontrast exam. 2. Multiple nonobstructive renal stones, the largest measuring 7 mm on the right.
--- NOTE | 2023-08-23 20:58 | ED_ITS ---
HPI - Abdominal Pain 2 General: Chief Complaint: Abdominal Pain Stated Complaint: believes kidney stone pain Time Seen by Provider: 08/23/23 20:47 Source: patient Mode of arrival: ambulatory Limitations: no limitations History of Present Illness: 53-year-old female who she states has a long history of kidney stones states she believes she has another kidney stone states that this morning started having severe left-sided flank pain that is worsened she had some hematuria as well states her pain is currently 9 out of 10 she had some nausea denies any diarrhea denies any fevers. Associated Symptoms: Reports hematuria; Denies chills, diarrhea, dysuria, fever(s), nausea and vomiting Review of Systems 2 Const: Denies: fever(s), chills, body aches or change in appetite ENMT: Denies: throat pain or dental pain Card: Denies: chest pain Resp: Denies: dyspnea GI: Denies: abdominal pain, nausea, vomiting or diarrhea : Reports: flank pain and hematuria; Denies: dysuria Musc: Denies: neck pain or back pain Skin/Breast: Denies: rash Neuro: Denies: headache(s) PFSH ED 2 PFSH: Medical History Gross hematuria Urgency incontinence Recurrent UTI Urolithiasis Hypertension Arnold-Chiari malformation Lupus DDD (degenerative disc disease) Dyspareunia, female Breast pain, left Abnormal mammogram of right breast Surgical History H/O brain surgery (~2002) tx for chiari History of appendectomy (~1999) History of partial knee replacement (~2009) right Hx of cholecystectomy H/O laparoscopy (~1995) - 03/27/1996. Laparoscopy. Dr. Cleveland AGUILERA. Adhesiolysis. Fulguration of endometriosis. No tissue for pathology. 10/03/1997. Laparoscopy. Dr. Cleveland AGUILERA. Adhesio lysis. Fulguration of endometriosis. Appendectomy, with benign pathology. H/O knee surgery multiple arthroscopies on both knees History of bilateral oophorectomy a few years after hyst H/O bladder repair surgery History of hysterectomy (~1999) Family History Grandmother Breast cancer, Onset Age: 50 MATERNAL Stroke PATERNAL Father , AGE 64 Diabetes Hypertension Alcohol abuse Family/Other Patient denies medical problems uterine/ovarian/colon cancer, thyroid, hypercholesterolemia,heart disease Social History Smoking and tobacco/nicotine status: never used tobacco/nicotine Alcohol intake: never Substance/Drug Use: never Marital status: Current occupational status: unemployed Physical Exam 2 Const: COMMON NORMALS: no acute distress, patient oriented x3 and healthy appearing HENMT: COMMON NORMALS: normocephalic and atraumatic HEAD & SCALP: n ormocephalic and atraumatic Neck/C-Spine: COMMON NORMALS: full ROM and supple Chest: COMMONS NORMALS: normal inspection of the chest Resp: COMMON NORMALS: normal respiratory effort GI: COMMON NORMALS: Normal to inspection, nondistended, normoactive bowel sounds present, Soft to palpation, non-tender and no masses PALPATION: Yes Soft to palpation Extremity: COMMON NORMALS: normal to inspection and full ROM Neuro: COMMON NORMALS: patient oriented x3, moves all extremities and no focal motor deficits Psych: COMMON NORMALS: mental status grossly normal, Normal thought process present and cooperative THOUGHT PROCESS: Normal thought process present Skin: COMMON NORMALS: no rashes or lesions noted and no wounds GENERAL SKIN EXAM: no rashes or lesions noted Course 2 Vital Signs: Vital signs: Vital Signs Temperature 97.6 F 08/23/23 19:49 Pulse Rate 69 08/23/23 21:30 Respiratory Rate 16 08/23/23 21:30 Blood Pressure 130/82 08/23/23 21:30 Pulse Oximetry 98 08/23/23 21:30 Oxygen Delivery Me thod Room Air 08/23/23 21:30 MDM - Abdominal Pain Medical Decision Making Patient presents here with flank pain she has no stones in her ureter does have a stone in her kidney her pain is much improved here blood works normal no signs UTI she stable for discharge follow-up PCP return if worsening. Medical Records I reviewed the patient's medical records. Lab Data I reviewed the patient's lab results. 08/23/23 20:24 08/23/23 20:40 Labs/Radiology: Radiology Impressions Abdomen/Pelvis CT 08/23/23 20:57 IMPRESSION: 1. No evidence of acute abnormality in the abdomen or pelvis within limitations of a noncontrast exam. 2. Multiple nonobstructive renal stones, the largest measuring 7 mm on the right. Laboratory Results WBC 8.61 10^3/uL (3.29-11.43) 08/23/23 20:24 RBC 4.44 10^6/uL (3.85-5.65) 08/23/23 20:24 Hgb 13.70 g/dL (11.27-16.99) 08/23/23 20:24 Hct 39.7 % (36-47) 08/23/23 20:24 MCV 89.4 fl (85-98) 08/23/23 20: MCH 30.9 pg (27-33) 08/23/23: MCHC 34.5 g/dL (30-55) 08/23/23 20:24 RDW 12.0 % (12.1-15.1) L 08/23/23:24 Plt Count 364 10^3/cmm (157-399) 08/23/23 20:24 MPV 9.5 fL (7.4-10.4) 08/23/23 20:24 Neut % (Auto) 49.7 % 08/23/23 20:24 Lymph % (Auto) 38.8 % 08/23/23 20:24 [place]ard % (Auto) 9.3 % 08/23/23 20:24 Eos % (Auto) 1.5 % 08/23/23 20:24 Baso % (Auto) 0.5 % 08/23/23:24 Neut # (Auto) 4.28 10^3/uL (1.8-7.7) 08/23/23 20:24 Lymph # (Auto) 3.3 10^3/uL (0.8-4.8) 08/23/23 20:24 Seward # (Auto) 0.8 10^3/uL (0.2-0.9) 08/23/23 20:24 Eos # (Auto) 0.1 10^3/uL (0.0-0.8) 08/23/23 20:24 Baso # (Auto) 0.0 10^3/uL (0.0-0.1) 08/23/23 20:24 Nucleated RBC % (auto) 0 % 08/23/23 20:24 Nucleated RBCs # 0.0 /100WBC 08/23/23 20:24 Sodium 141 mmol/L (136-145) 08/23/23 20:40 Potassium 3.0 mmol/L (3.5-5.1) L 08/23/23 20:40 Chloride 106 mmol/L (98-107) 08/23/23 20:40 Carbon Dioxide 24 mmol/L (22-29) 08/23/23 20:40 Anion Gap 14.0 (5-19) 08/23/23 20:40 BUN 11 mg/dL (6-20) 08/23/23 20:40 Creatinine 0.7 mg/dL (0.5-0.9) 08/23/23 20:40 GFR Calculation 87.5 mL/min (90-130) L 08/23/23 20:40 Glucose 110 mg/dL (65-115) 08/23/23 20:40 Calculated Osmolality 292 mOsm/kg (285-295) 08/23/23 20:40 Calcium 9.3 mg/dL (8.5-10.5) 08/23/23 20:40 Total Bilirubin 0.4 mg/dL (0.15-1.2) 08/23/23 20:40 AST 15 U/L (0-32) 08/23/23 20:40 ALT 15 U/L (0-33) 08/23/23 20:40 Alkaline Phosphatase 113 U/L (35-105) H 08/23/23 20:40 Total Protein 7.4 g/dL (6.6-8.7) 08/23/23 20:40 Albumin 4.1 g/dL (3.5-5.2) 08/23/23 20:40 Globulin 3.3 g/dL (1.3-4.6) 08/23/23 20:40 Lipase 49 U/L (13-60) 08/23/23 20:40 Urine Color Colorless (Yellow) 08/23/23 20:45 Urine Appearance Clear (CLEAR) 08/23/23 20:45 Urine pH 7 (5-7) 08/23/23 20:45 Ur Specific Te[place]y 1.005 (1.005-1.030) 08/23/23 20:45 Urine Protein Neg (Negative) 08/23/23 20:45 Urine Glucose (UA) Norm (Normal) 08/23/23 20:45 Urine Ketones Negative (Negative) 08/23/23 20:45 Urine Blood 3+ (Negative) H 08/23/23 20:45 Urine Nitrate Negative (Negative) 08/23/23 20:45 Urine Bilirubin Neg (Negative) 08/23/23 20:45 Urine Urobilinogen Neg mg/dL (Negative) 08/23/23 20:45 Ur Leukocyte Esterase Negative (Negative) 08/23/23 20:45 Urine RBC 15-25 /hpf (0-2) H 08/23/23 20:45 Urine WBC None /hpf (0-5) 08/23/23 20:45 Ur Squamous Epith Cells 0-4 /hpf (0-5) H 08/23/23 20:45 Amorphous Sediment Not Reportable 08/23/23 20:45 Urine Bacteria Trace /hpf (NONE) 08/23/23 20:45 All radiology interpretation(s) finalized by discharge Discharge Plan Discharge Patient Disposition: Home Clinical Impression: Flank pain Condition: Stable Prescriptions: No Action tolterodine 4 mg capsule,extended release 24hr 4 mg PO DAILY Qty: 30 12RF triamcinolone acetonide 0.1 % ointment 1 applic topical BID Qty: 30 0RF valacyclovir 1 gram tablet 1,000 mg PO TID Qty: 21 0RF prednisone 20 mg tablet 40 mg PO DAILY 5 Days Qty: 10 0RF pantoprazole 40 mg tablet,delayed release (DR/EC) 40 mg PO DAILY Qty: 90 1RF conjugated estrogens 0.625 mg/gram cream 0.625 mg vaginal DAILY Qty: 30 1RF Rx Instructions: use daily x 2 weeks then 2x per week thereafter. amoxicillin-pot clavulanate 875-125 mg tablet 1 tab PO BID 10 Days Qty: 20 0RF Ozempic 0.25 mg or 0.5 mg (2 mg/3 mL) pen injector 0.25 mg SUBCUT .qweekly Qty: 3 5RF duloxetine 60 mg capsule,delayed release(DR/EC) 60 mg PO BID Qty: 60 5RF amitriptyline 25 mg tablet 50 mg PO BEDTIME PRN (Reason: Headache) Qty: 60 5RF lorazepam 1 mg tablet 1 mg PO TID PRN (Reason: Anxiety) Qty: 90 5RF amlodipine 5 mg tablet 5 mg PO DAILY Qty: 90 3RF Discharge Orders: Discharge ED (Routine); Ordered 08/23/23 Ordered By: Becca Simon Referrals: Robert Lu DO [Primary Care Provider] - Discharge Diet: Advance as tolerated Discharge Activity: Resume usual activity Patient Instructions: Flank Pain (ED) Coding Level of Care Code ED 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
[2023-08-23 21:09] LABS: Alanine Aminotransferase 15 U/L (0-33); Albumin Level 4.1 g/dL (3.5-5.2); Alkaline Phosphatase 113 U/L (35-105); Aspartate Amino Transferase 15 U/L (0-32); Blood Urea Nitrogen 11 mg/dL (6-20); Calcium 9.3 mg/dL (8.5-10.5); Carbon Dioxide 24 mmol/L (22-29); Chloride 106 mmol/L (98-107); Creatinine Clr Calc Pharmacy 112.7972; Globulin 3.3 g/dL (1.3-4.6); Glomerular Filtration Rate 87.5 mL/min (90-130); Glucose 110 mg/dL (65-115); Lipase 49 U/L (13-60); Osmolality Calculated 292 mOsm/kg (285-295); Sodium 141 mmol/L (136-145); Total Bilirubin 0.4 mg/dL (0.15-1.2); Total Protein 7.4 g/dL (6.6-8.7)
[2023-08-23] MEDS: ondansetron 2 mg/ML SDV 2 mL 4 MG IVP (21:11)
[2023-08-23] MEDS: HYDROmorphone 1 mg/mL INJ 1 mL IVP (21:11)
[2023-08-23] MEDS: ketorolac 30 mg/mL INJ 15 MG IVP (21:11)
[2023-08-23 21:15] LABS: Add Urine Microscopic? YES; Bilirubin Urine Neg (Negative); Blood Urine 3+ (Negative); Glucose Urine UA Norm (Normal); Ketones Urine Negative (Negative); Leukocyte Esterase Urine Negative (Negative); Nitrate Urine Negative (Negative); Protein Urine Neg (Negative); Specific Gravity, Urine 1.005 (1.005-1.030); Urine Appearance Clear (CLEAR); Urine Color Colorless (Yellow); Urobilinogen Urine Neg (Negative); pH Urine 7 (5-7)
[2023-08-23 21:16] LABS: Add Urine Culture? Yes; Bacteria Urine TRACE /hpf; RBC Urine 15-25 /hpf (0-2); Squamous Epithelial Cell Urine 0-4 /hpf (0-5)
[2023-08-23 21:30] VITALS: BP 130/82; PULSE 69; RESP 16; O2SAT 98
== END 2023-08-23 22:43 | disposition home or self-care (01) ==
PROVIDERS: Emergency Provider Emergency Medicine; PCP Family Medicine
DX: R10.9 Unspecified abdominal pain (principal); Z79.85 Long-term (current) use of injectable non-insulin antidiabetic drugs; I10 Essential (primary) hypertension; Z87.442 Personal history of urinary calculi
CPT/HCPCS: 36415; 74176; 80053; 81001; 83690; 85025; 87086; 96374; 96375; 99285; J1170; J1885; J2405

== ENCOUNTER 2023-09-06 09:19 | Outpatient (CLI) | payer MEDICARE, OTHER, SELFPAY ==
--- NOTE | 2023-09-06 09:27 | XR_ITS ---
WS: [id number] Exam: XR KUB [id number] Date/Time of Exam: 09/06/2023 9:28 AM Reason For Exam: Nephrolithiasis Comparison 01/13/2022. 7 mm calcification seen in the RIGHT abdomen may represent a renal calculus. No bowel obstruction or pneumoperitoneum. No sign of organ enlargement. Signs of prior cholecystectomy. Unremarkable bowel ga s pattern. Nonspecific small bilateral pelvic calcifications. XR/XR KUB [id number] IMPRESSION: 1. 7 mm calcification superimposes the lower pole the RIGHT kidney and may repr esent a renal stone. 2. No acute abdominal process. Status post cholecystectomy. Signs of pelvic yasmin rosa.
== END 2023-09-06 09:20 | disposition home or self-care (01) ==
PROVIDERS: PCP Family Medicine; Visit Provider Nurse Practitioner Family
DX: N20.0 Calculus of kidney (principal); Z98.890 Other specified postprocedural states
CPT/HCPCS: 74018

== ENCOUNTER 2023-09-18 20:18 | Emergency (ER) | payer MEDICARE, OTHER, SELFPAY ==
[2023-09-18 20:26] VITALS: BP 164/106; PULSE 88; RESP 16; TEMP 36.6; O2SAT 97
--- NOTE | 2023-09-18 20:29 | ECG_ITS ---
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 Measurements Intervals Simpson Rate: 82 P: 22 AK: 199 QRS: -27 QRSD: 103 T: 30 QT: 348 QTc: 408 Interpretive Statements SINUS RHYTHM POSSIBLE ANTERIOR MYOCARDIAL INFARCTION , PROBABLY OLD [30 ms Q WAVE IN V3/V4, OR R < 0.2 mV IN V4] INFERIOR MYOCARDIAL INFARCTION , PROBABLY OLD [40+ ms Q WAVE AND/OR ST/T ABNORMALITY IN II/aVF] Compared to ECG 12/22/2019 11:37:59 Myocardial infarct finding now present First degree AV block no longer present Electronically Signed On 09-19-2023 17:21:40 CDT by Enrique Lara M.D. [id number]
[2023-09-18 21:25] VITALS: BP 130/93; PULSE 85; RESP 15; O2SAT 96
--- NOTE | 2023-09-18 21:27 | ED_ITS ---
Documented by User: Ana Cristina Ricardo MD 09/18/23 22:07 HPI - Arrhythmia/Palpitations 2 General: Chief Complaint: Arrhythmia/Palpitations Stated Complaint: High BP, Dr Lu sent over Time Seen by Provider: 09/18/23 21:12 History of Present Illness: 53-year-old female who presents emergenc y room with complaint of hypertension. She says she has not been feeling well for the last few days. She had been to see her urologist who checked a urine that was normal and her blood pressure was high at that time and so they told her to check her blood pressure 3 times a day. It is continue to be persistently high with systolics as high as the 170s and 180s and diastolics as high as 110. She has had a slight headache. No focal motor deficits. She has had some palpitations and chest discomfort at times. No fevers. No cough. No nausea or vomiting. No abdominal pain. No flank pain. No dysuria. Review of Systems 2 Narrative: Constitutional symptoms: Negative except as documented in HPI. Skin symptoms: Negative except as documented in HPI. Eye symptoms: Negative except as documented in HPI. ENMT symptoms: Negative except as documented in HPI. Respiratory symptoms: Negative except as documented in HPI. Cardiovascular symptoms: Negative except as documented in HPI. Gastrointestinal symptoms: Negative except as documented in HPI. Genitourinary symptoms: Negative except as documented in HPI. Musculoskeletal symptoms: Negative except as documented in HPI. Neurologic symptoms: Negative except as documented in HPI. Psychiatric symptoms: Negative except as documented in HPI. Endocrine symptoms: Negative except as documented in HPI. PFSH ED 2 PFSH: Medical History Gross hematuria Urgency incontinence Recurrent UTI Urolithiasis Hypertension Arnold-Chiari malformation Lupus DDD (degenerative disc disease) Dyspareunia, female Breast pain, left Abnormal mammogram of right breast Surgical History H/O brain surgery (~2002) tx for chiari History of appendectomy (~1999) History of partial knee replacement (~2009) right Hx of cholecystectomy H/O laparoscopy (~1995) - 03/27/1996. [place]ar[place] [facility] [place]. Guthrie. Adhesiolysis. Fulguration of endometriosis. No tissue for pathology. 10/03/1997. Laparoscopy. [facility] [place] Dr. Guthrie. Adhesio lysis. Fulguration of endometriosis. Appendectomy, with benign pathology. H/O knee surgery multiple arthroscopies on both knees History of bilateral oophorectomy a few years after hyst H/O bladder repair surgery History of hysterectomy (~1999) Family History Grandmother Breast cancer, Onset Age: 50 MATERNAL Stroke PATERNAL Father , AGE 64 Diabetes Hypertension Alcohol abuse Family/Other Patient denies medical problems uterine/ovarian/colon cancer, thyroid, hypercholesterolemia,heart disease Social History Smoking and tobacco/nicotine status: never used tobacco/nicotine Alcohol intake: never Substance/Drug Use: never Marital status: Current occupational status: unemployed Physical Exam 2 Narrative: EXAM NARRATIVE: General: Alert, no acute distress. Skin: Warm, dry. Head: Normocephalic, atraumatic. Neck: Supple, trachea midline. Eye: Extraocular movements are intact. Ears, nose, mouth and throat: mucosa moist. Cardiovascular: Regular, Normal peripheral perfusion. Respiratory: Lungs are clear to auscultation, respirations are non-labored, breath sounds are equal, Symmetrical chest wall expansion. Gastrointestinal: Soft, Nontender, Non distended, Normal bowel sounds. Musculoskeletal: Normal ROM, no deformity. Neurological: Alert and oriented, No focal neurological deficit observed. Psychiatric: Cooperative, appropriate mood & affect. Course 2 Vital Signs: Vital signs: Vital Signs Temperature 98 F 09/18/23 20:26 Pulse Rate 72 09/19/23 00:38 Respiratory Rate 12 09/19/23 00:38 Blood Pressure 139/85 09/19/23 00:38 Pulse Oximetry 96 09/19/23 00:38 Oxygen Delivery Me thod Room Air 09/18/23 22:13 MDM - Arrhythmia/Palpitations Medical Decision Making Medical decision making: Differential diagnosis including but not limited to and based on the above HPI, review of systems and physical exam: Patient presents with hypertension: Essential hypertension. Stroke. acute coronary syndrome. kidney failure. congestive heart failure. anxiety Orders placed to evaluate differential diagnosis based on the above differential, HPI and physical exam these include an EKG to evaluate for any ischemic changes, chest x-ray to evaluate for cardiomegaly, and basic lab work including a troponin and a BMP look at renal function. EKG: Time 2019 rate 82. Normal sinus rhythm, No ST-T changes, no ectopy, normal TN & QRS intervals, This was reviewed and interpreted by myself the ER physician at 2024 CT head: No acute intracranial process. no intracranial hemorrhage, no evidence of infarct. no evidence of acute fracture.This was reviewed and interpreted by myself the ER physician. Chest x-ray: No acute process. No infiltrate. No pneumothorax. No cardiomegaly. This was reviewed and interpreted by myself the ER physician. Lab Review: Laboratory results were reviewed and interpreted by myself the emergency room physician. Lab work is unremarkable. No leukocytosis. Hemoglobin is 13. Renal function is normal at 12 and 0.5. Initial troponin is negative. Serial troponin is pending. Patient care transitioned to Dr. Foote at shift change. Lab Data 09/18/23 21:29 09/18/23 21:[address] 09/18/23 21:31 IMPRESSION: No acute findings. Chest X-Ray 09/18/23 21:32 IMPRESSION: No acute findings. Laboratory Results WBC 7.99 10^3/uL (3.29-11.43) 09/18/23: RBC 4.32 10^6/uL (3.85-5.65) 09/18/23: Hgb 13.10 g/dL (11.27-16.99) 09/18/23: Hct 38.5 % (36-47) 09/18/23 21: MCV 89.1 fl (85-98) 09/18/23 21: MCH 30.3 pg (27-33) 09/18/23 21: MCHC 34.0 g/dL (30-55) 09/18/23: RDW 12.3 % (12.1-15.1) 09/18/23 21: Plt Count 364 10^3/cmm (157-399) 09/18/23: MPV 9.1 fL (7.4-10.4) 09/18/23: Neut % (Auto) 47.6 % 09/18/23 21: Lymph % (Auto) 38.8 % 09/18/23: [place] % (Auto) 10.6 % 09/18/23: Eos % (Auto) 2.3 % 09/18/23: Baso % (Auto) 0.6 % 09/18/23: Neut # (Auto) 3.80 10^3/uL (1.8-7.7) 09/18/23: Lymph # (Auto) 3.1 10^3/uL (0.8-4.8) 09/18/23: [place] # (Auto) 0.9 10^3/uL (0.2-0.9) 09/18/23: Eos # (Auto) 0.2 10^3/uL (0.0-0.8) 09/18/23: Baso # (Auto) 0.1 10^3/uL (0.0-0.1) 09/18/23: Nucleated RBC % (auto) 0 % 09/18/23: Nucleated RBCs # 0.0 /100WBC 09/18/23: Sodium 142 mmol/L (136-145) 09/18/23: Potassium 3.1 mmol/L (3.5-5.1) L 09/18/23: Chloride 105 mmol/L (98-107) 09/18/23: Carbon Dioxide 25 mmol/L (22-29) 09/18/23: Anion Gap 15.1 (5-19) 09/18/23 21: BUN 12 mg/dL (6-20) 09/18/23 21: Creatinine 0.5 mg/dL (0.5-0.9) 09/18/23: GFR Calculation 129.1 mL/min (90-130) 09/18/23: Glucose 111 mg/dL (65-115) 09/18/23: Calculated Osmolality 294 mOsm/kg (285-295) 09/18/23: Calcium 9.6 mg/dL (8.5-10.5) 09/18/23: Total Bilirubin 0.2 mg/dL (0.15-1.2) 06/10/24 21:29 AST 18 U/L (0-32) 09/18/23 21:29 ALT 22 U/L (0-33) 09/18/23 21:29 Alkaline Phosphatase 102 U/L (35-105) 09/18/23 21:29 Troponin T Baseline < 6 ng/L (0-10) 09/18/23 21:29 Troponin T 120 Minute 6.04 ng/L (0-10) 09/18/23 23:23 Delta Troponin T 0.95324 ABS# (0-10) 09/18/23 23:23 Total Protein 7.0 g/dL (6.6-8.7) 09/18/23 21:29 Albumin 4.3 g/dL (3.5-5.2) 09/18/23 21:29 Globulin 2.7 g/dL (1.3-4.6) 09/18/23 21:29 Discharge Plan Discharge Patient Disposition: Home Clinical Impression: Hypertension Qualifiers: Hypertension type: unspecified Qualified Code(s): I10 - Essential (primary) hypertension Condition: Stable Prescriptions: No Action tolterodine 4 mg capsule,extended release 24hr 4 mg PO DAILY Qty: 30 12RF triamcinolone acetonide 0.1 % ointment 1 applic topical BID Qty: 30 0RF valacyclovir 1 gram tablet 1,000 mg PO TID Qty: 21 0RF pantoprazole 40 mg tablet,delayed release (DR/EC) 40 mg PO DAILY Qty: 90 1RF conjugated estrogens 0.625 mg/gram cream 0.625 mg vaginal DAILY Qty: 30 1RF Rx Instructions: use daily x 2 weeks then 2x per week thereafter. Ozempic 0.25 mg or 0.5 mg (2 mg/3 mL) pen injector 0.25 mg SUBCUT .qweekly Qty: 3 5RF amoxicillin-pot clavulanate 875-125 mg tablet 1 tab PO BID 7 Days Qty: 14 0RF duloxetine 60 mg capsule,delayed release(DR/EC) 60 mg PO BID Qty: 60 5RF amitriptyline 25 mg tablet 50 mg PO BEDTIME PRN (Reason: Headache) Qty: 60 5RF lorazepam 1 mg tablet 1 mg PO TID PRN (Reason: Anxiety) Qty: 90 5RF amlodipine 5 mg tablet 5 mg PO DAILY Qty: 90 3RF Discharge Orders: Discharge ED (Routine); Ordered 09/19/23 Ordered By: Edgar Foote Referrals: Robert Lu DO [Primary Care Provider] - 1 week Patient Instructions: Hypertension (ED) Activity Restrictions/Additional Instructions: Your evaluation in ER did not show any acute cause of your symptoms. Your blood pressure improved while in the ER down to 139/85. Please continue to keep a blood pressure log and take it to your next appointment with your family practice doctor. Please follow-up with them within next 7 days for further evaluation and treatment. Coding Level of Care Code ED Coal Equipment Operator for Chg Fwd Documented by User: Edgar Foote DO 09/19/23 04:11 HPI - Arrhythmia/Palpitations 2 General: Chief Complaint: Arrhythmia/Palpitations Stated Complaint: High BP, Dr Lu sent over Time Seen by Provider: 09/18/23 21:12 PFSH ED 2 PFSH: Medical History Gross hematuria Urgency incontinence Recurrent UTI Urolithiasis Hypertension Arnold-Chiari malformation Lupus DDD (degenerative disc disease) Dyspareunia, female Breast pain, left Abnormal mammogram of right breast Surgical History H/O brain surgery (~2002) tx for chiari History of appendectomy (~1999) History of partial knee replacement (~2009) right Hx of cholecystectomy H/O laparoscopy (~1995) - 03/27/1996. Laparoscopy. Dr. Cleveland AGUILERA. Adhesiolysis. Fulguration of endometriosis. No tissue for pathology. 10/03/1997. Laparoscopy. Dr. Cleveland AGUILERA. Adhesio lysis. Fulguration of endometriosis. Appendectomy, with benign pathology. H/O knee surgery multiple arthroscopies on both knees History of bilateral oophorectomy a few years after hyst H/O bladder repair surgery History of hysterectomy (~1999) Family History Grandmother Breast cancer, Onset Age: 50 MATERNAL Stroke PATERNAL Father , AGE 64 Diabetes Hypertension Alcohol abuse Family/Other Patient denies medical problems uterine/ovarian/colon cancer, thyroid, hypercholesterolemia,heart disease Social History Smoking and tobacco/nicotine status: never used tobacco/nicotine Alcohol intake: never Substance/Drug Use: never Marital status: Current occupational status: unemployed Course 2 Vital Signs: Vital signs: Vital Signs Temperature 98 F 09/18/23 20:26 Pulse Rate 72 09/19/23 00:38 Respiratory Rate 12 09/19/23 00:38 Blood Pressure 139/85 09/19/23 00:38 Pulse Oximetry 96 09/19/23 00:38 Oxygen Delivery Me thod Room Air 09/18/23 22:13 MDM - Arrhythmia/Palpitations Medical Decision Making Medical decision making: Differential diagnosis including but not limited to and based on the above HPI, review of systems and physical exam: Patient presents with hypertension: Essential hypertension. Stroke. acute coronary syndrome. kidney failure. congestive heart failure. anxiety Orders placed to evaluate differential diagnosis based on the above differential, HPI and physical exam these include an EKG to evaluate for any ischemic changes, chest x-ray to evaluate for cardiomegaly, and basic lab work including a troponin and a BMP look at renal function. EKG: Time 2019 rate 82. Normal sinus rhythm, No ST-T changes, no ectopy, normal TN & QRS intervals, This was reviewed and interpreted by myself the ER physician at 2024 CT head: No acute intracranial process. no intracranial hemorrhage, no evidence of infarct. no evidence of acute fracture.This was reviewed and interpreted by myself the ER physician. Chest x-ray: No acute process. No infiltrate. No pneumothorax. No cardiomegaly. This was reviewed and interpreted by myself the ER physician. Lab Review: Laboratory results were reviewed and interpreted by myself the emergency room physician. Lab work is unremarkable. No leukocytosis. Hemoglobin is 13. Renal function is normal at 12 and 0.5. Initial troponin is negative. Serial troponin is pending. Patient care transitioned to Dr. Foote at shift change. Patient care transitioned over to myself at shift change, we was waiting for lab work, back, once lab work come back which was normal I went talk to the patient and told her that her troponin is were normal and will be discharging her home. Patient is okay with this. I will tell patient to keep a blood pressure log and take it to her family practice visit with a neck 7 days. Lab Data 09/18/23 21:29 09/18/23 21: Radiology Impressions Head CT 09/18/23 21:31 IMPRESSION: No acute findings. Chest X-Ray 09/18/23 21:32 IMPRESSION: No acute findings. Laboratory Results WBC 7.99 10^3/uL (3.29-11.43) 09/18/23: RBC 4.32 10^6/uL (3.85-5.65) 09/18/23: Hgb 13.10 g/dL (11.27-16.99) 09/18/23: Hct 38.5 % (36-47) 09/18/23 21: MCV 89.1 fl (85-98) 09/18/23 21: MCH 30.3 pg (27-33) 09/18/23: MCHC 34.0 g/dL (30-55) 09/18/23: RDW 12.3 % (12.1-15.1) 09/18/23: Plt Count 364 10^3/cmm (157-399) 09/18/23: MPV 9.1 fL (7.4-10.4) 09/18/23: Neut % (Auto) 47.6 % 09/18/23: Lymph % (Auto) 38.8 % 09/18/23: [place] % (Auto) 10.6 % 09/18/23: Eos % (Auto) 2.3 % 09/18/23 21: Baso % (Auto) 0.6 % 09/18/23: Neut # (Auto) 3.80 10^3/uL (1.8-7.7) 09/18/23: Lymph # (Auto) 3.1 10^3/uL (0.8-4.8) 09/18/23 21: [place] # (Auto) 0.9 10^3/uL (0.2-0.9) 09/18/23 21: Eos # (Auto) 0.2 10^3/uL (0.0-0.8) 09/18/23 21: Baso # (Auto) 0.1 10^3/uL (0.0-0.1) 09/18/23: Nucleated RBC % (auto) 0 % 09/18/23 21: Nucleated RBCs # 0.0 /100WBC 09/18/23 21: Sodium 142 mmol/L (136-145) 09/18/23: Potassium 3.1 mmol/L (3.5-5.1) L 09/18/23: Chloride 105 mmol/L (98-107) 09/18/23: Carbon Dioxide 25 mmol/L (22-29) 09/18/23: Anion Gap 15.1 (5-19) 09/18/23 21: BUN 12 mg/dL (6-20) 09/18/23 21: Creatinine 0.5 mg/dL (0.5-0.9) 09/18/23 21: GFR Calculation 129.1 mL/min (90-130) 09/18/23 21: Glucose 111 mg/dL (65-115) 09/18/23 21: Calculated Osmolality 294 mOsm/kg (285-295) 09/18/23: Calcium 9.6 mg/dL (8.5-10.5) 09/18/23: Total Bilirubin 0.2 mg/dL (0.15-1.2) 09/18/23 21: AST 18 U/L (0-32) 09/18/23 21: ALT 22 U/L (0-33) 09/18/23 21: Alkaline Phosphatase 102 U/L (35-105) 09/18/23 21:29 Troponin T Baseline < 6 ng/L (0-10) 09/18/23 21: Troponin T 120 Minute 6.04 ng/L (0-10) 09/18/23 23:23 Delta Troponin T 0.05493 ABS# (0-10) 09/18/23 23:23 Total Protein 7.0 g/dL (6.6-8.7) 09/18/23 21:29 Albumin 4.3 g/dL (3.5-5.2) 09/18/23 21:29 Globulin 2.7 g/dL (1.3-4.6) 09/18/23 21:29 All radiology interpretation(s) finalized by discharge Discharge Plan Discharge Patient Disposition: Home Clinical Impression: Hypertension Qualifiers: Hypertension type: unspecified Qualified Code(s): I10 - Essential (primary) hypertension Condition: Stable Prescriptions: No Action tolterodine 4 mg capsule,extended release 24hr 4 mg PO DAILY Qty: 30 12RF triamcinolone acetonide 0.1 % ointment 1 applic topical BID Qty: 30 0RF valacyclovir 1 gram tablet 1,000 mg PO TID Qty: 21 0RF pantoprazole 40 mg tablet,delayed release (DR/EC) 40 mg PO DAILY Qty: 90 1RF conjugated estrogens 0.625 mg/gram cream 0.625 mg vaginal DAILY Qty: 30 1RF Rx Instructions: use daily x 2 weeks then 2x per week thereafter. Ozempic 0.25 mg or 0.5 mg (2 mg/3 mL) pen injector 0.25 mg SUBCUT .qweekly Qty: 3 5RF amoxicillin-pot clavulanate 875-125 mg tablet 1 tab PO BID 7 Days Qty: 14 0RF duloxetine 60 mg capsule,delayed release(DR/EC) 60 mg PO BID Qty: 60 5RF amitriptyline 25 mg tablet 50 mg PO BEDTIME PRN (Reason: Headache) Qty: 60 5RF lorazepam 1 mg tablet 1 mg PO TID PRN (Reason: Anxiety) Qty: 90 5RF amlodipine 5 mg tablet 5 mg PO DAILY Qty: 90 3RF Discharge Orders: Discharge ED (Routine); Ordered 09/19/23 Ordered By: Edgar Foote Referrals: Robert Lu DO [Primary Care Provider] - 1 week Patient Instructions: Hypertension (ED) Activity Restrictions/Additional Instructions: Your evaluation in ER did not show any acute cause of your symptoms. Your blood pressure improved while in the ER down to 139/85. Please continue to keep a blood pressure log and take it to your next appointment with your family practice doctor. Please follow-up with them within next 7 days for further evaluation and treatment. Coding Level of Care Code ED Coal Equipment Operator for Sara Kamara
--- NOTE | 2023-09-18 21:31 | CTR_ITS ---
PROCEDURE INFORMATION: Exam: CT Head Without Contrast Exam date and time: 09/18/2023 9:39 PM Age: 53 years old Clinical indication: Pain; Headache; Additional info: Hypertension, headache TECHNIQUE: Imaging protocol: Computed tomography of the head without contrast. Radiation optimization: All CT scans at this facility use at least one of these dose optimization techniques: automated exposure control; mA and/or kV adjustment per patient size (includes targeted exams where dose is matched to clinical indication); or iterative reconstruction. COMPARISON: CT cervical spin wo con* [id number] 10/12/2016 2:29 PM RADIATION DOSE METRICS: Total DLP (mGy-cm): 1040 FINDINGS: Brain: No acute intracranial hemorrhage. No acute territorial region of renteria-white dedifferentiation. No extra-axial collection. No mass effect or midline shift. Cerebral ventricles: No acute hydrocephalus. Paranasal sinuses: Visualized sinuses are well-aerated. No fluid levels. Mastoid air cells: Visualized mastoid air cells are well aerated. Orbital cavities: No acute abnormality. Bones: Surgical changes of prior suboccipital decompression. No acute calvarial fracture. Soft tissues: No acute abnormality. CT/CT head wo con* [id number] IMPRESSION: No acute findings.
--- NOTE | 2023-09-18 21:32 | XRR_ITS ---
PROCEDURE INFORMATION: Exam: XR Chest Exam date and time: 09/18/2023 9:34 PM Age: 53 years old Clinical indication: Other: Hypertension; Additional info: Hypertension, headache TECHNIQUE: Imaging protocol: Radiologic exam of the chest. Views: 1 view. COMPARISON: CR XR chest 2V* [id number] 07/14/2021 9:50 AM FINDINGS: Lungs: No consolidation. Pleural spaces: No large pleural effusion. No pneumothorax. Heart/Mediastinum: Unremarkable. No cardiomegaly. Bones/joints: No acute abnormality. XR/XR chest 1V portable [id number] IMPRESSION: No acute findings.
[2023-09-18 21:40] LABS: Basophils # 0.1 10^3/uL (0.0-0.1); Basophils % 0.6 %; Eosinophils # 0.2 10^3/uL (0.0-0.8); Eosinophils % 2.3 %; Hematocrit 38.5 % (36-47); Lymphocytes # 3.1 10^3/uL (0.8-4.8); Lymphocytes % 38.8 %; Mean Corpuscular Hemoglobin 30.3 pg (27-33); Mean Corpuscular Volume 89.1 fl (85-98); Mean Platelet Volume 9.1 fL (7.4-10.4); Monocytes # 0.9 10^3/uL (0.2-0.9); Monocytes % 10.6 %; Neutrophils % 47.6 %; Nucleated Red Blood Cells % 0 %; Platelet Count 364 10^3/cmm (157-399); Red Blood Count 4.32 10^6/uL (3.85-5.65); Red Cell Distribution Width 12.3 % (12.1-15.1); White Blood Count 7.99 10^3/uL (3.29-11.43)
[2023-09-18 21:55] LABS: Troponin(5th) Baseline < 6 ng/L (0-10)
[2023-09-18 22:05] LABS: Alanine Aminotransferase 22 U/L (0-33); Albumin Level 4.3 g/dL (3.5-5.2); Alkaline Phosphatase 102 U/L (35-105); Anion Gap 15.1 (5-19); Aspartate Amino Transferase 18 U/L (0-32); Blood Urea Nitrogen 12 mg/dL (6-20); Calcium 9.6 mg/dL (8.5-10.5); Carbon Dioxide 25 mmol/L (22-29); Chloride 105 mmol/L (98-107); Creatinine Clr Calc Pharmacy 157.9161; Globulin 2.7 g/dL (1.3-4.6); Glomerular Filtration Rate 129.1 mL/min (90-130); Glucose 111 mg/dL (65-115); Osmolality Calculated 294 mOsm/kg (285-295); Potassium 3.1 mmol/L (3.5-5.1); Sodium 142 mmol/L (136-145); Total Bilirubin 0.2 mg/dL (0.15-1.2)
[2023-09-18 22:13] VITALS: BP 139/84; PULSE 75; RESP 11; O2SAT 96
[2023-09-18 23:52] LABS: Troponin 5 2HR 6.04 ng/L (0-10); Troponin 5 2HR Delta 0.04001 ABS# (0-10)
[2023-09-19 00:38] VITALS: BP 139/85; PULSE 72; RESP 12; O2SAT 96
== END 2023-09-19 00:37 | disposition home or self-care (01) ==
PROVIDERS: Emergency Provider Emergency Medicine; PCP Family Medicine
DX: I10 Essential (primary) hypertension (principal); Z79.899 Other long term (current) drug therapy
CPT/HCPCS: 36415; 70450; 71045; 80053; 84484; 85025; 93005; 99285

== ENCOUNTER 2023-11-22 09:47 | Outpatient (CLI) | payer OTHER, MEDICARE, SELFPAY ==
--- NOTE | 2023-11-22 09:56 | MM_ITS ---
WS: [id number] BILATERAL SCREENING DIGITAL TOMOSYNTHESIS MAMMOGRAM WITH CAD HISTORY: SCREENING COMPARISON: 11/15/2022, 05/24/2022 Bilateral CC and MLO views with tomosynthesis and synthetic mammography submitted. Computer aided det ection analyzed. Breast composition: There are scattered areas of fibroglandular density. No suspicious masses, microc alcifications or architectural distortion. Asymmetry in the lateral inferior RIGHT breast is stable o [place] multiple prior exams. MM/[place] [id number] IMPRESSION: BI-RADS: 2-Benign FOLLOW UP: 1 Year Follow-up
== END 2023-11-22 09:48 | disposition home or self-care (01) ==
PROVIDERS: Absent Provider Nurse Practitioner Family; PCP Family Medicine; Visit Provider Family Medicine
DX: Z12.31 Encounter for screening mammogram for malignant neoplasm of breast (principal)
CPT/HCPCS: 77063; 77067

== ENCOUNTER 2024-01-18 07:32 | Emergency (ER) | payer OTHER, MEDICARE, SELFPAY ==
[2024-01-18 07:52] VITALS: BP 164/101; PULSE 80; RESP 16; TEMP 36.6; O2SAT 97; BMI 33.5
--- NOTE | 2024-01-18 07:57 | ED_ITS ---
HPI - URI/Sore Throat 2 General: Chief Complaint: Upper Respiratory Infection Stated Complaint: neck, ears, jaw pain Time Seen by Provider: 01/18/24 07:35 History of Present Illness: 53-year-old female presents emergency ro om complaining headache fatigue neck pain ear pain. She states that been going on for several days her throat feels scratchy she was seen by her doctor 2 days ago and started on some oral antibiotics she states it is worsened since then. She does have a mild headache with it. She has a history of a Chiari malformation she has not had any other focal neurologic symptoms no fever no productive cough no chest pain or abdominal pain Associated symptoms: Reports ear or mastoid pain; Deny abdominal pain, chills, chest pain or fever(s) Related Data Previous Rx's Medication Instructions Recorded conjugated estrogens 0.625 mg/gram 0.625 mg vaginal DAILY vaginal 04/20/23 vaginal cream atrophy #30 grams pantoprazole 40 mg tablet,delayed 40 mg PO DAILY GERD #90 tabs 04/20/23 release amlodipine 5 mg tablet 5 mg PO DAILY #90 tabs 07/18/23 lorazepam 1 mg tablet 1 mg PO TID PRN Anxiety #90 tabs 09/24/23 duloxetine 60 mg capsule,delayed 60 mg PO BID #60 caps 12/14/23 release amitriptyline 25 mg tablet 50 mg (2 x 25 mg) PO BEDTIME PRN 01/16/24 Headache #60 tabs prednisone 20 mg tablet 20 mg PO DAILY body inflammation 01/16/24 #10 tabs valacyclovir 1 gram tablet 1,000 mg PO TID zoster #21 tabs 01/16/24 Allergies Allergy/AdvReac Type Severity Reaction Status Date / Time hydrochlorothiazide Allergy drops Verified 01/18/24 08:05 potassium level Review of Systems 2 Const: Denies: fever(s) or chills ENMT: Reports: throat pain and ear or mastoid pain Card: Denies: chest pain Resp: Denies: dyspnea GI: Denies: abdominal pain : Denies: dysuria, urinary frequency or urinary urgency Musc: Denies: neck pain or back pain Skin/Breast: Denies: rash PFSH ED 2 PFSH: Medical History Gross hematuria Urgency incontinence Recurrent UTI Urolithiasis Hypertension Arnold-Chiari malformation Lupus DDD (degenerative disc disease) Dyspareunia, female Breast pain, left Abnormal mammogram of right breast Surgical History H/O brain surgery (~2002) tx for chiari History of appendectomy (~1999) History of partial knee replacement (~2009) right Hx of cholecystectomy H/O laparoscopy (~1995) - 03/27/1996. Laparoscopy. Dr. Cleveland Magana. Adhesiolysis. Fulguration of endometriosis. No tissue for pathology. 10/03/1997. Laparoscopy. Dr. Cleveland AGUILERA. Adhesio lysis. Fulguration of endometriosis. Appendectomy, with benign pathology. H/O knee surgery multiple arthroscopies on both knees History of bilateral oophorectomy a few years after hyst H/O bladder repair surgery History of hysterectomy (~1999) Family History Grandmother Breast cancer, Onset Age: 50 MATERNAL Stroke PATERNAL Father , AGE 64 Diabetes Hypertension Alcohol abuse Family/Other Patient denies medical problems uterine/ovarian/colon cancer, thyroid, hypercholesterolemia,heart disease Social History Smoking and tobacco/nicotine status: never used tobacco/nicotine Alcohol intake: never Substance/Drug Use: never Marital status: Current occupational status: unemployed Physical Exam 2 Const: GENERAL APPEARANCE: cooperative ORIENTATION/CONSCIOUSNESS: Yes awake, Yes oriented to person, Yes oriented to place and Yes oriented to time HENMT: COMMON NORMALS: normocephalic, atraumatic and hearing grossly normal bilaterally HEAD & SCALP: normocephalic and atraumatic Resp: COMMON NORMALS: normal respiratory effort, No retractions, No use of accessory muscles and clear to auscultation bilaterally AUSCULTATION: clear to auscultation bilaterally Cardio: COMMON NORMALS: regular rate, regular rhythm and No murmurs present (Cardio) RATE: regular rate RHYTHM: regular rhythm GI: COMMON NORMALS: Soft to palpation and No hepatosplenomegaly present A USCULTATION: Yes normoactive bowel sounds PALPATION: Yes Soft to palpation, No Tenderness to palpation present (GI), No Guarding due to palpation present (GI) and Yes No hepatosplenomegaly present Extremity: COMMON NORMALS: normal to inspection, capillary refill normal, no clubbing, cyanosis or edema, no calf tenderness and no pedal edema Neuro: SENSORIUM/ORIENTATION: Yes oriented to person, Yes oriented to place and Yes oriented to time Skin: COMMON NORMALS: no rashes or lesions noted GENERAL SKIN EXAM: no rashes or lesions noted Course 2 Vital Signs: Vital signs: Vital Signs Temperature 97.8 F 01/18/24 07:52 Pulse Rate 63 01/18/24 11:18 Respiratory Rate 16 01/18/24 07:52 Blood Pressure 153/99 01/18/24 11:18 Pulse Oximetry 99 01/18/24 11:18 Oxygen Delivery Me thod Room Air 01/18/24 07:52 MDM - URI/Sore Throat Medical Decision Making Labs and testing reviewed no acute findings. Recommend continuing the IV antibiotics and steroids she was previously given if symptoms persist follow-up with primary care may need further evaluation by ENT. Full liquid diet for the next 2 days then advance as tolerated Lab Data 01/18/24 08:36 01/18/24 08:36 Laboratory Results WBC 8.46 10^3/uL (3.29-11.43) 01/18/24 08:36 RBC 4.84 10^6/uL (3.85-5.65) 01/18/24 08:36 Hgb 14.80 g/dL (11.27-16.99) 01/18/24 08:36 Hct 44.8 % (36-47) 01/18/24 08:36 MCV 92.6 fl (85-98) 01/18/24 08:36 MCH 30.6 pg (27-33) 01/18/24 08:36 MCHC 33.0 g/dL (30-55) 01/18/24 08:36 RDW 12.4 % (12.1-15.1) 01/18/24 08:36 Plt Count 333 10^3/cmm (157-399) 01/18/24 08:36 MPV 9.0 fL (7.4-10.4) 01/18/24 08:36 Neut % (Auto) 58.8 % 01/18/24 08:36 Lymph % (Auto) 32.4 % 01/18/24 08:36 [place] % (Auto) 7.4 % 01/18/24 08:36 Eos % (Auto) 0.7 % 01/18/24 08:36 Baso % (Auto) 0.5 % 01/18/24 08:36 Neut # (Auto) 4.97 10^3/uL (1.8-7.7) 01/18/24 08:36 Lymph # (Auto) 2.7 10^3/uL (0.8-4.8) 01/18/24 08:36 [place] # (Auto) 0.6 10^3/uL (0.2-0.9) 01/18/24 08:36 Eos # (Auto) 0.1 10^3/uL (0.0-0.8) 01/18/24 08:36 Baso # (Auto) 0.0 10^3/uL (0.0-0.1) 01/18/24 08:36 Nucleated RBC % (auto) 0 % 01/18/24 08:36 Nucleated RBCs # 0.0 /100WBC 01/18/24 08:36 Sodium 140 mmol/L (136-145) 01/18/24 08:36 Potassium 3.5 mmol/L (3.5-5.1) 01/18/24 08:36 Chloride 102 mmol/L (98-107) 01/18/24 08:36 Carbon Dioxide 26 mmol/L (22-29) 01/18/24 08:36 Anion Gap 15.5 (5-19) 01/18/24 08:36 BUN 13 mg/dL (6-20) 01/18/24 08:36 Creatinine 0.7 mg/dL (0.5-0.9) 01/18/24 08:36 GFR Calculation 87.5 mL/min (90-130) L 01/18/24 08:36 Glucose 105 mg/dL (65-115) 01/18/24 08:36 Calculated Osmolality 290 mOsm/kg (285-295) 01/18/24 08:36 Calcium 9.2 mg/dL (8.5-10.5) 01/18/24 08:36 Total Bilirubin 0.4 mg/dL (0.15-1.2) 01/18/24 08:36 AST 20 U/L (0-32) 01/18/24 08:36 ALT 18 U/L (0-33) 01/18/24 08:36 Alkaline Phosphatase 97 U/L (35-105) 01/18/24 08:36 Total Protein 7.7 g/dL (6.6-8.7) 01/18/24 08:36 Albumin 4.3 g/dL (3.5-5.2) 01/18/24 08:36 Globulin 3.4 g/dL (1.3-4.6) 01/18/24 08:36 Coronavirus (PCR) Negative (Negative) 01/18/24 08:20 Monoscreen Negative (Negative) 01/18/24 08:36 Influenza A (PCR) Negative (Negative) 01/18/24 08:20 Influenza Type B (PCR) Negative (Negative) 01/18/24 08:20 RSV (PCR) Negative (Negative) 01/18/24 08:20 Group A Strep Rapid Negative (Negative) 01/18/24 08:20 No radiology studies performed this visit Discharge Plan Discharge Patient Disposition: Home Clinical Impression: Pharyngitis Condition: Stable Prescriptions: No Action valacyclovir 1 gram tablet 1,000 mg PO TID Qty: 21 3RF prednisone 20 mg tablet 20 mg PO DAILY Qty: 10 0RF amitriptyline 25 mg tablet 50 mg PO BEDTIME PRN (Reason: Headache) Qty: 60 5RF pantoprazole 40 mg tablet,delayed release (DR/EC) 40 mg PO DAILY Qty: 90 1RF conjugated estrogens 0.625 mg/gram cream 0.625 mg vaginal DAILY Qty: 30 1RF Rx Instructions: use daily x 2 weeks then 2x per week thereafter. amlodipine 5 mg tablet 5 mg PO DAILY Qty: 90 3RF lorazepam 1 mg tablet 1 mg PO TID PRN (Reason: Anxiety) Qty: 90 5RF duloxetine 60 mg capsule,delayed release(DR/EC) 60 mg PO BID Qty: 60 5RF Discharge Orders: Discharge ED (Routine); Ordered 01/18/24 Ordered By: Rahul Monroe Referrals: Robert Lu, [Primary Care Provider] - Discharge Diet: Usual diet Discharge Activity: Increase activity as tolerated Patient Instructions: Opioid Safety, Pain Management Activity Restrictions/Additional Instructions: Thank you for choosing [facility] for your healthcare needs today. It is very important that you follow up as instructed or that you return to the Emergency Department should you have concerns or if your condition changes or worsens in any way. You were seen today with complaints of sore throat and generalized body ache. Flu COVID mono and strep swabs were all negative. Your laboratory test did not show significant abnormality. Recommend that you continue the medications you were given by your doctor amoxicillin and steroids if symptoms persist they can refer you to ENT as appropriate Coding Level of Care Code ED Log Chipper Operator for Sara Kamara
[2024-01-18 08:44] LABS: Basophils % 0.5 %; Eosinophils # 0.1 10^3/uL (0.0-0.8); Eosinophils % 0.7 %; Hematocrit 44.8 % (36-47); Lymphocytes # 2.7 10^3/uL (0.8-4.8); Lymphocytes % 32.4 %; Mean Corpuscular Hemoglobin 30.6 pg (27-33); Mean Corpuscular Volume 92.6 fl (85-98); Monocytes # 0.6 10^3/uL (0.2-0.9); Monocytes % 7.4 %; Neutrophils # 4.97 10^3/uL (1.8-7.7); Neutrophils % 58.8 %; Nucleated Red Blood Cells % 0 %; Platelet Count 333 10^3/cmm (157-399); Red Blood Count 4.84 10^6/uL (3.85-5.65); Red Cell Distribution Width 12.4 % (12.1-15.1); White Blood Count 8.46 10^3/uL (3.29-11.43)
[2024-01-18 08:57] LABS: Rapid Strep A Test Negative (Negative)
[2024-01-18 09:01] LABS: Alanine Aminotransferase 18 U/L (0-33); Albumin Level 4.3 g/dL (3.5-5.2); Alkaline Phosphatase 97 U/L (35-105); Blood Urea Nitrogen 13 mg/dL (6-20); Calcium 9.2 mg/dL (8.5-10.5); Carbon Dioxide 26 mmol/L (22-29); Chloride 102 mmol/L (98-107); Creatinine Clr Calc Pharmacy 111.2003; Globulin 3.4 g/dL (1.3-4.6); Glomerular Filtration Rate 87.5 mL/min (90-130); Glucose 105 mg/dL (65-115); Osmolality Calculated 290 mOsm/kg (285-295); Sodium 140 mmol/L (136-145); Total Bilirubin 0.4 mg/dL (0.15-1.2); Total Protein 7.7 g/dL (6.6-8.7)
[2024-01-18 09:02] LABS: Monoscreen Negative (Negative)
[2024-01-18 09:05] LABS: Anion Gap 15.5 (5-19); Aspartate Amino Transferase 20 U/L (0-32); Potassium 3.5 mmol/L (3.5-5.1)
[2024-01-18 09:22] LABS: Covid PCR NEGATIVE (Negative); Influenza A NEGATIVE (Negative); Influenza B NEGATIVE (Negative); Respiratory Syncytial Virus Ce NEGATIVE (Negative)
[2024-01-18 11:18] VITALS: BP 153/99; PULSE 63; O2SAT 99
== END 2024-01-18 11:18 | disposition home or self-care (01) ==
PROVIDERS: Emergency Provider Family Medicine; PCP Family Medicine
DX: J02.9 Acute pharyngitis, unspecified (principal); Z11.52 Encounter for screening for COVID-19; I10 Essential (primary) hypertension; M32.9 Systemic lupus erythematosus, unspecified
CPT/HCPCS: 0241U; 36415; 80053; 85025; 86308; 87081; 87880; 99283

== ENCOUNTER 2024-03-26 07:50 | Outpatient (CLI) | payer MEDICARE, OTHER, SELFPAY ==
--- NOTE | 2024-03-26 08:01 | USR_ITS ---
PROCEDURE INFORMATION: Exam: US Retroperitoneal, Complete, Kidneys and Bladder Exam date and time: 03/26/2024 8:07 AM Age: 53 years old Clinical indication: Pain; Other: Flank; Additional info: Flank pain/nephrolithiasis, PT having xray too TECHNIQUE: Imaging protocol: Real-time ultrasound of the retroperitoneum with image documentation. Complete exam focused on the bilateral kidneys and urinary bladder. COMPARISON: US abdomen complete* [id number] 02/21/2022 9:09 AM FINDINGS: Right kidney: The right kidney measures 11 cm. 9 x 11 x 4 mm hyperechoic right renal nephrolithiasis. No hydronephrosis. Left kidney: The left kidney measures 11.2 cm. No stones. No hydronephrosis. Urinary bladder: Prevoid urinary bladder volume 91 mL. Postvoid urinary bladder volume of 7.5 mL. Bilateral ureteral jets are visualized. US/US renal BI with PV bladder IMPRESSION: 1. Nonobstructing right renal nephrolithiasis without evidence of bilateral hydronephrosis. 2. No evidence of urinary retention. Bilateral ureteral jets are visualized.
--- NOTE | 2024-03-26 08:01 | XRR_ITS ---
PROCEDURE INFORMATION: Exam: XR Abdomen Exam date and time: 03/26/2024 8:36 AM Age: 53 years old Clinical indication: Pain; Other: Flank; Additional info: Flank pain/nephrolithiasis, PT having US too TECHNIQUE: Imaging protocol: Radiologic exam of the abdomen. Views: Frontal supine view of the abdomen. 1 View. COMPARISON: CR XR KUB [id number] 09/06/2023 9:33 AM FINDINGS: Gastrointestinal tract: Mildly increased colonic stool burden. Otherwise normal bowel-gas pattern. Organs: Cholecystectomy clips in the right upper quadrant. Nephrolithiasis better demonstrated on recently obtained renal bladder ultrasound. Not well visualized on this examination and is confounded by bowel contents. Bones/joints: Unremarkable. XR/XR KUB [id number] IMPRESSION: 1. Right renal nephrolithiasis not well visualized on this examination. 2. Mild constipation. Otherwise unremarkable bowel gas pattern.
== END 2024-03-26 07:51 | disposition home or self-care (01) ==
PROVIDERS: PCP Family Medicine; Visit Provider Nurse Practitioner Family
DX: N20.0 Calculus of kidney (principal); R10.9 Unspecified abdominal pain
CPT/HCPCS: 74018; 76770; 76857

== ENCOUNTER 2024-07-25 20:57 | Inpatient (IN) | payer MEDICARE, OTHER, SELFPAY ==
[2024-07-25 20:59] VITALS: BP 129/96; PULSE 99; RESP 20; TEMP 36.7; O2SAT 100; BMI 34.2
--- NOTE | 2024-07-25 21:14 | ECG_ITS ---
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 Measurements Intervals [place] Rate: 94 P: 66 OR: 197 QRS: -19 QRSD: 110 T: 130 QT: 367 QTc: 459 Interpretive Statements SINUS RHYTHM INFERIOR MYOCARDIAL INFARCTION , PROBABLY OLD [40+ ms Q WAVE AND/OR ST/T ABNORMALITY IN II/aVF] Diffuse non specific ST T changes Compared to ECG 09/18/2023 20:20:41 No significant changes Electronically Signed On 07-26-2024 08:40:49 CDT by Diana Reyes M.D. [email or web address]
[2024-07-25 21:21] VITALS: PULSE 95; RESP 18; O2SAT 98
[2024-07-25 21:52] LABS: Basophils # 0.1 10^3/uL (0.0-0.1); Basophils % 0.6 %; Eosinophils # 0.2 10^3/uL (0.0-0.8); Eosinophils % 2.3 %; Hematocrit 42.6 % (36-47); Lymphocytes # 2.7 10^3/uL (0.8-4.8); Lymphocytes % 32.2 %; Mean Corpuscular HGB Conc 34.5 g/dL (30-55); Mean Corpuscular Hemoglobin 30.4 pg (27-33); Mean Platelet Volume 8.9 fL (7.4-10.4); Monocytes # 0.7 10^3/uL (0.2-0.9); Monocytes % 8.1 %; Neutrophils # 4.82 10^3/uL (1.8-7.7); Neutrophils % 56.6 %; Nucleated Red Blood Cells % 0 %; Platelet Count 368 10^3/cmm (157-399); Red Blood Count 4.84 10^6/uL (3.85-5.65); White Blood Count 8.52 10^3/uL (3.29-11.43)
[2024-07-25 22:20] LABS: Albumin Level 4.4 g/dL (3.5-5.2); Alkaline Phosphatase 86 U/L (35-105); Anion Gap 17.5 (5-19); Aspartate Amino Transferase 21 U/L (0-32); Blood Urea Nitrogen 14 mg/dL (6-20); Calcium 9.5 mg/dL (8.5-10.5); Carbon Dioxide 23 mmol/L (22-29); Chloride 103 mmol/L (98-107); Creatinine Clr Calc Pharmacy 111.2379; Globulin 3.4 g/dL (1.3-4.6); Glomerular Filtration Rate 87.2 mL/min (90-130); Glucose 120 mg/dL (65-115); Osmolality Calculated 292 mOsm/kg (285-295); Potassium 3.5 mmol/L (3.5-5.1); Sodium 140 mmol/L (136-145); Thyroid Stimulating Hormone 3.43 uIU/mL (0.27-4.20); Total Bilirubin 0.6 mg/dL (0.15-1.2); Total Protein 7.8 g/dL (6.6-8.7)
[2024-07-25 22:20] LABS: Bilirubin Urine Negative (Negative); Blood Urine Negative (Negative); Glucose Urine UA Negative (Normal); Ketones Urine Negative (Negative); Leukocyte Esterase Urine Negative (Negative); Nitrate Urine Negative (Negative); Protein Urine Negative (Negative); Specific Gravity, Urine 1.011 (1.005-1.030); Urine Appearance Clear (CLEAR); Urine Color Yellow (Yellow); pH Urine 6.5 (5-7)
[2024-07-25 22:23] LABS: Acetaminophen < 5.0 ug/mL (10-30); Alcohol Level < 10 mg/dL (0-10); Salicylate < 0.3 mg/dL (3-10)
[2024-07-25 22:25] LABS: Add Urine Microscopic? YES; Bacteria Urine None Seen /hpf; RBC Urine 0-2 /hpf (0-2); Squamous Epithelial Cell Urine 0-5 /hpf (0-5); WBC Urine 0-5 /hpf (0-5)
[2024-07-25 22:31] LABS: Alanine Aminotransferase 26 U/L (0-33)
[2024-07-25 23:20] LABS: Amphetamines Screen Urine Negative (Negative); Barbiturates Screen Urine Negative (Negative); Benzodiazepines Screen Urine Positive (Negative); Cocaine Screen Urine Negative (Negative); Opiate Screen Urine Positive (Negative); PCP Screen Urine Negative (Negative); THC Screen Urine Negative (Negative)
--- NOTE | 2024-07-25 23:47 | PC.NURSE ---
96 Hour Involuntary Hold Patient Rights have been reviewed with the patient and a copy of the same has been provided to her. [place] Supervisor Jesus Cooper was present at the bedside during the presentation of Rights.
[2024-07-26] VITALS (8 sets, daily range): BP systolic 104–128; BP diastolic 68–90; PULSE 69–99; RESP 16–17; TEMP 36.4–37.2; O2SAT 95–99
--- NOTE | 2024-07-26 00:04 | ED_ITS ---
HPI - Overdose 2 General: Chief Complaint: Overdose Stated Complaint: took 13 Ativan Time Seen by Provider: 07/25/24 21:10 History of Present Illness: Patient is a 54-year-old female with history of anxiety, depression, and suicidal thoughts with multiple psychiatric visits to the emergency department and hospitalizations seen for apparent overdose of benzodiazepines. She is prescribed Ativan and filled 15 tab prescription yesterday. 14 tablets are gone. They are 1 mg tablets. She was texting her family nonsense which alerted them to the situation. They found her sitting in a closet licking peanut butter out of a bowl. She is tearful as she describes that her is not treating her well. Though she denies overt suicidal ideation, she admits that she wishes she just would not wake up. She is accompanied by her 2 daughters who contest strongly that she is minimizing her symptoms and that they feel she is actively suicidal. She denies headache, chest pain, shortness of breath, and has no other acute complaints. Related Data Previous Rx's ?Medication ?Instructions ?Recorded conjugated estrogens 0.625 mg/gram 0.625 mg vaginal DA WAGNER vaginal 04/20/23 vaginal cream atrophy #30 grams pantoprazole 40 mg tablet,delayed 40 mg PO DAILY GERD #90 tabs 04/20/23 release duloxetine 60 mg capsule,delayed 60 mg PO BID #60 caps 12/14/23 release amitriptyline 25 mg tablet 50 mg (2 x 25 mg) PO BEDTIM E PRN 01/16/24 Headache #60 tabs valacyclovir 1 gram tablet 1,000 mg PO TID zoster #21 tabs 01/16/24 amlodipine 5 mg tablet 5 mg PO DAILY #90 tabs 02/01 lorazepam 1 mg tablet 1 mg PO TID PRN Anxiety #90 tabs 03/11/24 fluticasone propionate 50 2 spray intranasal DAILY #16 grams 05/01/24 mcg/actuation nasal spray,suspension (Flonase Allergy Relief) azithromycin 250 mg tablet See Rx Instructions PO .COM PLEX #6 06/03/24 tabs Allergies Allergy/AdvReac Type Severity Reaction Status Date / Time hydrochlorothiazide Allergy drops Verified 06/03/24 10:17 potassium level [facility] ED 2 PFS: Medical History Gross hematuria Urgency incontinence Recurrent UTI Urolithiasis Hypertension Arnold-Chiari malformation Lupus DDD (degenerative disc disease) Dyspareunia, female Breast pain, left Abnormal mammogram of right breast Surgical History H/O brain surgery (~2002) tx for chiari History of appendectomy (~1999) History of partial knee replacement (~2009) right Hx of cholecystectomy H/O laparoscopy (~1995) - [facility] Adhesiolysis. Fulguration of endometriosis. No tissue for pathology. 10/03/1997. Laparoscopy. Dr. Cleveland Magana. Adhesio lysis. Fulguration of endometriosis. Appendectomy, with benign pathology. H/O knee surgery multiple arthroscopies on both knees History of bilateral oophorectomy a few years after hyst H/O bladder repair surgery History of hysterectomy (~1999) Family History Grandmother Breast cancer, Onset Age: 50 MATERNAL Stroke PATERNAL Father , AGE 64 Diabetes Hypertension Alcohol abuse Family/Other Patient denies medical problems uterine/ovarian/colon cancer, thyroid, hypercholesterolemia,heart disease Social History Smoking and tobacco/nicotine status: never used tobacco/nicotine Alcohol intake: never Substance/Drug Use: never Marital status: Current occupational status: unemployed Physical Exam 2 Const: COMMON NORMALS: no acute distress, patient oriented x3 and alert HENMT: COMMON NORMALS: normocephalic and atraumatic HEAD & SCALP: n ormocephalic and atraumatic Eye: COMMON NORMALS: Equal, round and reactive pupils present, EOMs intact bilaterally and no scleral icterus PUPIL: Yes Equal, round and reactive pupils present Resp: COMMON NORMALS: normal respiratory effort and No retractions Cardio: COMMON NORMALS: regular rate, regular rhythm and No murmurs present (Cardio) RATE: regular rate RHYTHM: regular rhythm GI: COMMON NORMALS: Normal to inspection, nondistended, normoactive bowel sounds present, Soft to palpation and non-tender PALPATION: Yes Soft to palpation Neuro: COMMON NORMALS: patient oriented x3 SENSORIUM/ORIENTATION: Yes alert Psych: OTHER: Tearful, admits feeling dysphoric. Overtly denies SI and HI, however family is convinced that she is suicidal. Skin: COMMON NORMALS: no rashes or lesions noted GENERAL SKIN EXAM: no rashes or lesions noted Course 2 Vital Signs: Vital signs: Vital Signs Temperature 98.0 F 07/25/24 20:59 Pulse Rate 95 07/25/24 21:21 Respiratory Rate 18 07/25/24 21:21 Blood Pressure 129/96 07/25/24 20:59 Pulse Oximetry 98 07/25/24 21:21 Oxygen Delivery Me thod Room Air 07/25/24 21:21 MDM - Overdose Medical Decision Making By the time patient arrived in the emergency department, her mental status alteration has resolved. She is not medically cleared. I suspect that she was possibly trying to commit suicide via intentional overdose with benzodiazepine. Her 2 daughters are of the same mindset. I spoke with on-call psychiatry who will admit the patient for further observation care. Lab Data 07/25/24 21:45 07/25/24 21:45 Laboratory Results WBC 8.52 10^3/uL (3.29-11.43) 07/25/24 21:45 RBC 4.84 10^6/uL (3.85-5.65) 07/25/24 21:45 Hgb 14.70 g/dL (11.27-16.99) 07/25/24 21:45 Hct 42.6 % (36-47) 07/25/24 21:45 MCV 88.0 fl (85-98) 07/25/24 21:45 MCH 30.4 pg (27-33) 07/25/24 21:45 MCHC 34.5 g/dL (30-55) 07/25/24 21:45 RDW 12.0 % (12.1-15.1) L 07/25/24 21:45 Plt Count 368 10^3/cmm (157-399) 07/25/24 21:45 MPV 8.9 fL (7.4-10.4) 07/25/24 21:45 Neut % (Auto) 56.6 % 07/25/24 21:45 Lymph % (Auto) 32.2 % 07/25/24 21:45 [place] % (Auto) 8.1 % 07/25/24 21:45 Eos % (Auto) 2.3 % 07/25/24 21:45 Baso % (Auto) 0.6 % 07/25/24 21:45 Neut # (Auto) 4.82 10^3/uL (1.8-7.7) 07/25/24 21:45 Lymph # (Auto) 2.7 10^3/uL (0.8-4.8) 07/25/24 21:45 [place] # (Auto) 0.7 10^3/uL (0.2-0.9) 07/25/24 21:45 Eos # (Auto) 0.2 10^3/uL (0.0-0.8) 07/25/24 21:45 Baso # (Auto) 0.1 10^3/uL (0.0-0.1) 07/25/24 21:45 Nucleated RBC % (auto) 0 % 07/25/24 21:45 Nucleated RBCs # 0.0 /100WBC 07/25/24 21:45 Sodium 140 mmol/L (136-145) 07/25/24 21:45 Potassium 3.5 mmol/L (3.5-5.1) 07/25/24 21:45 Chloride 103 mmol/L (98-107) 07/25/24 21:45 Carbon Dioxide 23 mmol/L (22-29) 07/25/24 21:45 Anion Gap 17.5 (5-19) 07/25/24 21:45 BUN 14 mg/dL (6-20) 07/25/24 21:45 Creatinine 0.7 mg/dL (0.5-0.9) 07/25/24 21:45 GFR Calculation 87.2 mL/min (90-130) L 07/25/24 21:45 Glucose 120 mg/dL (65-115) H 07/25/24 21:45 Calculated Osmolality 292 mOsm/kg (285-295) 07/25/24 21:45 Calcium 9.5 mg/dL (8.5-10.5) 07/25/24 21:45 Total Bilirubin 0.6 mg/dL (0.15-1.2) 07/25/24 21:45 AST 21 U/L (0-32) 07/25/24 21:45 ALT 26 U/L (0-33) 07/25/24 21:45 Alkaline Phosphatase 86 U/L (35-105) 07/25/24 21:45 Total Protein 7.8 g/dL (6.6-8.7) 07/25/24 21:45 Albumin 4.4 g/dL (3.5-5.2) 07/25/24 21:45 Globulin 3.4 g/dL (1.3-4.6) 07/25/24 21:45 TSH 3.43 uIU/mL (0.27-4.20) 07/25/24 21:45 Urine Color Yellow (Yellow) 07/25/24 21:20 Urine Appearance Clear (CLEAR) 07/25/24 21:20 Urine pH 6.5 (5-7) 07/25/24 21:20 Ur Specific [place] 1.011 (1.005-1.030) 07/25/24 21:20 Urine Protein Negative (Negative) 07/25/24 21:20 Urine Glucose (UA) Negative (Normal) 07/25/24 21:20 Urine Ketones Negative (Negative) 07/25/24 21:20 Urine Blood Negative (Negative) 07/25/24 21:20 Urine Nitrate Negative (Negative) 07/25/24 21:20 Urine Bilirubin Negative (Negative) 07/25/24 21:20 Urine Urobilinogen 1.0 mg/dL (Negative) 07/25/24 21:20 Ur Leukocyte Esterase Negative (Negative) 07/25/24 21:20 Urine RBC 0-2 /hpf (0-2) 07/25/24 21:20 Urine WBC 0-5 /hpf (0-5) 07/25/24 21:20 Ur Squamous Epith Cells 0-5 /hpf (0-5) 07/25/24 21:20 Amorphous Sediment Not Reportable 07/25/24 21:20 Urine Bacteria None seen /hpf (NONE) 07/25/24 21:20 Hyaline Casts 0.40 /lpf 07/25/24 21:20 Salicylates < 0.3 mg/dL (3-10) L 07/25/24 21:45 Urine Opiates Screen Positive ng/mL (Negative) H 07/25/24 21:20 Acetaminophen < 5.0 ug/mL (10-30) L 07/25/24 21:45 Ur Barbiturates Screen Negative ng/mL (Negative) 07/25/24 21:20 Ur Phencyclidine Scrn Negative ng/mL (Negative) 07/25/24 21:20 Ur Amphetamines Screen Negative ng/mL (Negative) 07/25/24 21:20 U Benzodiazepines Scrn Positive ng/mL (Negative) H 07/25/24 21:20 Urine Cocaine Screen Negative ng/mL (Negative) 07/25/24 21:20 U Marijuana (THC) Screen Negative ng/mL (Negative) 07/25/24 21:20 Ethyl Alcohol < 10 mg/dL (0-10) 07/25/24 21:45 No radiology studies performed this visit Discharge Plan Discharge Patient Disposition: Xfer Psychiatric Hosp Admit Provider: Nishant Keller Condition: Stable Coding Level of Care Code ED Battery Assembler Plastic for Sara Kamara
[2024-07-26] MEDS: amlodipine 5 mg Tablet PO (07:43)
[2024-07-26] MEDS: hyDROXYzine 25 mg Capsule 50 MG PO (07:43)
[2024-07-26] MEDS: pantoprazole DR 40 mg Tablet PO (07:43)
[2024-07-26] MEDS: duloxetine 60 mg Capsule PO ×2 (07:43→17:05)
[2024-07-26] MEDS: fluticasone nasal spray 16gm Btl 2 SPRAY INTRANASAL (07:48)
--- NOTE | 2024-07-26 15:08 | P.NPUHP_ITS ---
Providers/Chief Complaint 2 Admitting Physician: Nishant Keller MD Primary Care Provider: Robert Lu DO Chief Complaint: took 13 [place] NPU History of Present Illness Mila Thompson is a 54 year old female who presented to the emergency department with the following report: Chief Complaint: Overdose Stated Complaint: took 13 Ativan Time Seen by Provider: 07/25/24 21:10 History of Present Illness: Patient is a 54-year-old female with history of anxiety, depression, and suicidal thoughts with multiple psychiatric visits to the emergency department and hospitalizations seen for apparent overdose of benzodiazepines. She is prescribed Ativan and filled 15 tab prescription yesterday. 14 tablets are gone. They are 1 mg tablets. She was texting her family nonsense which alerted them to the situation. They found her sitting in a closet licking peanut butter out of a bowl. She is tearful as she describes that her is not treating her well. Though she denies overt suicidal ideation, she admits that she wishes she just would not wake up. She is accompanied by her 2 daughters who contest strongly that she is minimizing her symptoms and that they feel she is actively suicidal. She denies headache, chest pain, shortness of breath, and has no other acute complaints. She was admitted to the neuropsychiatric unit for definitive treatment of those issues. She is known to [facility] through distant inpatient and outpatient services. Last inpatient stay here was in September 2012 and an excerpt of that admission is included below for historical context. She also had fairly regular outpatient services here at [facility] [place] through 2017. She presented today reporting: Chief complaint Overdose on lorazepam due to life frustration and sleep disturbances. History of the present complaint The patient reports experiencing significant frustration and sleep disturbances, which led to an incident where she took an excessive amount of lorazepam. She describes taking between 10 to 14 tablets in an attempt to sleep, stating that she did not feel suicidal but was overwhelmed by life frustrations. This behavior was triggered by a recent trip to [place], which she did not want to take, and subsequent conflicts with her regarding finances and his drinking habits. The patient has a history of similar incidents, including a previous intentional overdose during a difficult divorce, where she ingested nearly two bottles of Ativan and a bottle of hydrocodone. The patient has a long-standing history of anxiety and depression, which she traces back to her childhood, marked by anxiety and obsessive-compulsive tendencies. She recalls reading extensively as a coping mechanism during her childhood, which was characterized by her father's alcoholism and the associated family conflicts. Her anxiety has persisted into adulthood, with social aspects becoming more pronounced over time. She experienced depression following the of her first child at age 22, which has been a recurring issue treated intermittently with various antidepressants. The patient has been on duloxetine (Cymbalta) and lorazepam for her mental health, with lorazepam primarily used to manage sleep disturbances. She has tried other medications, such as trazodone, but found them ineffective. She has a history of therapy from 2005 to but has not engaged in therapy since then. The patient also reports a significant traumatic event during the COVID- pandemic when her daughter was diagnosed with osteosarcoma of the jaw, which added to her stress and led to her current medication regimen. The patient has a family history of mental health issues, including addiction on her father's side and a grandfather who by suicide. She denies any history of substance abuse herself, although she occasionally uses marijuana edibles. She has no history of alcohol use disorder or other substance-related legal issues. The patient has been three times and is currently , living with her and his children from a previous relationship. She is on disability due to an arteriovenous malformation and spinal issues, which prevent her from working. She has undergone multiple surgeries, including a total hysterectomy and two knee replacements. Mental health history Diagnosed with anxiety and depression, with symptoms beginning in childhood, manifesting as OCD behaviors such as excessive reading as a coping mechanism. Experienced depression after the of the first child at age 22. History of two intentional overdoses, the first during a difficult divorce involving an affair, and the second recently due to life frustration. Previously hospitalized for these overdoses. Underwent therapy from 2005 to . Currently on duloxetine and lorazepam for anxiety and depression. Family history of mental health issues and addiction on both sides, with a grandfather who by suicide. Daughter had osteosarcoma of the jaw during COVID, which was a significant stressor. No history of substance abuse treatment or legal issues related to substance use. Social history Currently since 2019, living with and his two children, aged 15 and 14, who stay every other week. Has three biological children: one son, aged 27, and two daughters, aged 31 and 26. Previously twice and . 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 No tobacco or alcohol use; father had a history of alcoholism. Uses cannabis edibles approximately once a month. No history of drug or alcohol rehabilitation. Family history of addiction on both sides and a grandfather who by suicide. 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 No worship beliefs mentioned. Per her 09/28/[address] [facility] inpatient psychiatric discharge summary: DATE OF ADMISSION: 09/25/2012 DATE OF DISCHARGE: 09/28/2012 DATE OF DICTATION: 09/28/2012 DISCHARGE DIAGNOSES: AXIS I: Bipolar disorder type II, depressed. AXIS II: Personality disorder, not otherwise specified. AXIS III: Lupus and history of Arnold-Chiari malformation. AXIS IV: Poor coping skills, unemployed. AXIS V: Global Assessment of Functionin. Admission Global Assessment of Functionin. HOSPITAL COURSE: The patient was admitted after she has reported feeling depressed and decided to take her life away. The patient has called and told her about it. The patient was planning to commit suicide, taking 15 tablets of 1 milligram Ativan. The patient stated that she was a year ago, but for the first time she saw her with his girlfriend. This has had increased her depression. She has seen SUSAN Snider-FARRAH, in the outpatient. She has been compliant with her medication. DISCHARGE MENTAL STATUS EXAMINATION: On discharge day, the patient is fairly well-groomed, cooperative, good eye contact and spontaneous speech. She has denied any thoughts of suicide or homicide. She has denied any auditory or visual hallucinations. Has a fair insight and judgment. DIAGNOSTICS: LABORATORIES: White count 6.9, hemoglobin 13.4, hematocrit 38.7, platelets 312,000. Sodium 143, potassium 2.8 initially, replaced and the repeated one was 3.4. Creatinine 0.7, AST of 13, ALT of 31. Toxicology negative. Urinalysis negative. Alcohol was negative. test was negative. DISCHARGE MEDICATIONS: 1. Celexa 40 milligrams daily 2. Estradiol 0.5 milligrams daily 3. Neurontin 300 milligrams three times daily 4. Vistaril 25 milligrams every eight hours p.r.n. 5. Lamictal 20 milligrams at bedtime 6. [place] was increased to 450 milligrams twice daily, due to the low lithium level obtained. The lithium level obtained in the hospital was 0.3. 7. Was also discharged on KCl 20 milliequivalents twice daily 8. Was provided with trazodone 50 milligrams at bedtime as needed. Per her 09/26/[address] [facility] inpatient psychiatric evaluation: DATE OF ADMISSION: 09/25/2012 DATE OF DICTATION: 09/26/2012 CHIEF COMPLIANT: Suicidal thoughts. HISTORY OF PRESENT ILLNESS: The patient was admitted on a 96 hour hold for suicidal thoughts. The patient stated that she is currently . She has been from her , since last year. She met him downtown with his new family. She could not take it anymore. She has missed him a lot. She has felt extremely sad and decided to take her life away. She also has called her and told him that she was going to commit suicide and planned to take a pill and fall asleep. According to her, she has taken a bottle of Ativan. In the Emergency Room, she has mentioned that she had taken up to 15 tablets of 1 milligram Ativan, that I could not take it anymore. I love him too much. She has mentioned that she has history of depression and has been also seeing also Wanda Casas in the outpatient. She has mentioned that she had a history of Arnold-Chiari malformation, which was surgically corrected in the past. She has been told to have also bipolar disorder. She has described some mood swings. She has been taking her medications regularly. She is taking lithium and Lamictal. She has denied any auditory or visual hallucinations. ALLERGIES: Hydrochlorothiazide. CURRENT MEDICATIONS: Lamictal 200 milligrams at bedtime [place] 300 milligrams twice daily Neurontin 300 milligrams three times daily Estradiol 0.5 milligrams daily Celexa 40 milligrams daily REVIEW OF SYSTEMS: Negative, except for what was described in the History of Present Illness. PAST PSYCHIATRIC HISTORY: The patient mentioned she has been here previously following her surgery for Arnold-Chiari malformation in 2001, or so. At that time, she was kept here for, what appears like an anger episode. She has been following with Wanda Casas. She has seen Wanda Casas, a few weeks ago. She has been given a diagnosis of bipolar disorder. She has been compliant with her medications. She has threatened suicide in the past, but denied ever attempting suicide, except this time. She has also had a diagnosis of personality disorder, not otherwise specified. PAST MEDICAL HISTORY: History of Arnold-Chiari malformation, surgically corrected. Lupus. FAMILY HISTORY: Gave a family history of depression in a grandmother. Her cousin also has attempted suicide. SOCIAL HISTORY: The patient mentioned that she has three children. Two of them are from her , whom she recently. She had been to him for 16 years. Her children are 15 and 14. She has also been previously and has a 19-year old child. She is currently unemployed. She is on disability for her Arnold Chiari malformation and also getting child and alimony. SUBSTANCE ABUSE HISTORY: She has denied any alcohol or illicit substance abuse. Meds NPU Home Medications ?Medication ?Instructions ?Recorded ?Confirmed ?Last Taken ?Type pantoprazole 40 mg tablet,delayed 40 mg PO DAILY GERD #90 tabs 04/20/23 07/26/24 01/17/24 Rx release duloxetine 60 mg capsule,delayed 60 mg PO BID #60 caps 12/14/23 07/26/24 01/17/24 Rx release amitriptyline 25 mg tablet 50 mg (2 x 25 mg) PO BEDTIM E PRN 01/16/24 07/26/24 01/17/24 Rx Headache #60 tabs valacyclovir 1 gram tablet 1,000 mg PO TID zoster #21 tabs 01/16/24 07/26/24 01/17/24 Rx amlodipine 5 mg tablet 5 mg PO DAILY #90 tabs 02/0107/26/24 Unknown Rx lorazepam 1 mg tablet 1 mg PO TID PRN Anxiety #90 tabs 03/11/24 07/26/24 Unknown Rx fluticasone propionate 50 2 spray intranasal DAILY #16 grams 05/01/24 07/26/24 1 Day Ago Rx mcg/actuation nasal ~07/25/24 spray,suspension (Flonase Allergy 1 m g Relief) Allergies Allergy/AdvReac Type Severity Reaction Status Date / Time hydrochlorothiazide Allergy drops Verified 06/03/24 10:17 potassium level PFSH NPU 2 PFSH: Medical History Gross hematuria Urgency incontinence Recurrent UTI Urolithiasis Hypertension Arnold-Chiari malformation Lupus DDD (degenerative disc disease) Dyspareunia, female Breast pain, left Abnormal mammogram of right breast Surgical History H/O brain surgery (~2002) tx for chiari History of appendectomy (~1999) History of partial knee replacement (~2009) right Hx of cholecystectomy H/O laparoscopy (~1995) - [facility]/27/[facility] Adhesiolysis. Fulguration of endometriosis. No tissue for pathology. 10/03/1997. Laparoscopy. Dr. Cleveland Magana. Adhesio lysis. Fulguration of endometriosis. Appendectomy, with benign pathology. H/O knee surgery multiple arthroscopies on both knees History of bilateral oophorectomy a few years after hyst H/O bladder repair surgery History of hysterectomy (~1999) Family History Grandmother Breast cancer, Onset Age: 50 MATERNAL Stroke PATERNAL Father , AGE 64 Diabetes Hypertension Alcohol abuse Family/Other Patient denies medical problems uterine/ovarian/colon cancer, thyroid, hypercholesterolemia,heart disease Social History Smoking and tobacco/nicotine status: never used tobacco/nicotine Alcohol intake: never Substance/Drug Use: never Marital status: Current occupational status: unemployed Mental Status Exam 2 MSE Comments: This is an obese white female in hospital scrubs with limited grooming but adequate eye contact. No abnormal movements except for mild psychomotor retardation. Cooperative with exam and mild distress. Speech was slightly decreased rate and volume. Mood described as pretty good, affect slightly subdued. Thought process organized. Thought content: Patient denied suicidal or homicidal ideation, there were no delusions reported or noted, she denied any auditory or visual hallucinations. Reports taking an overdose of Ativan, stating it was not a suicide attempt but an attempt to sleep due to frustration, however we discussed that being problematic with her taking reportedly 10-14 times which she normally takes. History of a previous intentional overdose during a difficult divorce. Longstanding history of anxiety, currently managed with lorazepam, and depression, particularly , treated intermittently with antidepressants. Difficulty sleeping, uses lorazepam to help calm the mind and induce sleep. Recent stressors include a trip to [place], conflict with , and financial concerns. History of daughter's cancer during COVID. Mood described as pretty good during the encounter. Attention and concentration were intact and memory appeared mostly reliable but with some likely intentional omissions, but none were formally tested. She is alert and oriented x 3. Insight and judgment are limited and impulse control is impaired. Vitals/I&O/Wt Last Vital Signs Temp 99 F 07/26/24 12:26 Pulse 98 07/26/24 12:26 Resp 16 07/26/24 12:26 BP 122/76 07/26/24 12:26 Pulse Ox 95 07/26/24 12:26 O2 Del Method Room Air 07/26/24 06:00 Weight last 48 hrs Weight 99.337 kg Data NPU 07/25/24 21:45 07/25/24 21:45 A&P Assessment and plan (1) Generalized anxiety disorder: (2) Depression: (3) Hypertension: Qualifiers: Hypertension type: unspecified Qualified Code(s): I10 - Essential (primary) hypertension (4) Obesity: (5) Suicidal thoughts: (6) Intentional overdose: Plan This is a 54-year-old white female with a long history of mental health and limited reports of any addiction concerns with genetic loading for mental health and addiction issues and for her second hospitalization in her life for suicide attempt by overdose both times benzodiazepines were involved. The patient is experiencing significant mental health challenges, including depression and anxiety, which have been exacerbated by recent life stressors. There is a history of suicidal ideation and previous intentional overdose, with the current episode involving an overdose of lorazepam due to frustration and somnolence. The patient has a longstanding history of anxiety, dating back to childhood, and has experienced depressive episodes since . 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 The patient has a family history of addiction and mental health issues, which may contribute to the current mental health status. 1. Continue current medication. Would hold Ativan and consider addition of additional antidepressants given being on max dose of duloxetine. 2. Continue every 15 minute checks for safety. 3. Encourage individual, group and milieu therapy. 4. Continue CIWA protocol. 5. Obtain collateral information. 6. Evaluate against the backdrop of 96-hour hold after her intentional ingestion. PDMP PDMP Reviewed: Not Reviewed Involuntary Hold Information 2 Hold Status: Legal Status: 96 Hour Hold Date/Time Hold Expires: 07/31/24 @22:20 Attestations NPU 2 Medical Necessity Statement*: Inpatient hospitalization is medically necessary clinically appropriate intervention at this time. We will monitor medications/initiate medications and make changes as indicated. She will be in the hospital for over 2 midnights. Likely length of stay 3 to 5 days. Coding Level of Care Code Acute Code for [facility] Fwd Diagnoses Generalized anxiety disorder F41.1 Depression F32.9 Hypertension I10 Hypertension type: unspecified Obesity E66.9 Suicidal thoughts R45.851 Intentional overdose T50.902A
[2024-07-27 04:00] VITALS: BP 114/76; PULSE 72; RESP 16; O2SAT 97
[2024-07-27 08:00] VITALS: BP 121/80; PULSE 81; RESP 17; O2SAT 99
[2024-07-27] MEDS: duloxetine 60 mg Capsule PO ×2 (08:32→18:42)
[2024-07-27] MEDS: amlodipine 5 mg Tablet PO (08:32)
[2024-07-27] MEDS: folic acid 1 mg Tablet PO (08:32)
[2024-07-27] MEDS: pantoprazole DR 40 mg Tablet PO (08:32)
[2024-07-27] MEDS: multivitamin therapeutic Tablet 1 TAB PO (08:32)
[2024-07-27 12:00] VITALS: BP 130/92; PULSE 81; RESP 16; TEMP 36.9; O2SAT 99
--- NOTE | 2024-07-27 14:05 | P.NPUPN_ITS ---
Subjective NPU 2 Subjective: Patient presented today reporting that things are going fine. She was focused on the possibility of being able to go home for Easter but we discussed the fact that he still does not factor into overdose attempts and this being her second time with benzodiazepines we want a make sure that she is safely off of them and that she can discuss with her outpatient provider whether or not this is something that could be restarted. We talked about the possibility of Neurontin including the risks, benefits and alternatives and she understood and agreed to proceed as is documented in this note. She did note however that she normally takes the benzodiazepine/Ativan at night only and so it is more for sleep. She denied any side effects to the medication. Mental Status Exam 2 MSE Comments: This is an obese white female in hospital scrubs with limited grooming but adequate eye contact. No abnormal movements except for mild psychomotor retardation. Cooperative with exam and mild distress. Speech was slightly decreased rate and volume. Mood described as pretty good, affect slightly subdued. Thought process organized. Thought content: Patient denied suicidal or homicidal ideation, there were no delusions reported or noted, she denied any auditory or visual hallucinations. Reports taking an overdose of Ativan, stating it was not a suicide attempt but an attempt to sleep due to frustration, however we discussed that being problematic with her taking reportedly 10-14 times which she normally takes. History of a previous intentional overdose during a difficult divorce. Longstanding history of anxiety, currently managed with lorazepam, and depression, particularly , treated intermittently with antidepressants. Difficulty sleeping, uses lorazepam to help calm the mind and induce sleep. Recent stressors include a trip to [place], conflict with , and financial concerns. History of daughter's cancer during COVID. Mood described as pretty good during the encounter. Attention and concentration were intact and memory appeared mostly reliable but with some likely intentional omissions, but none were formally tested. She is alert and oriented x 3. Insight and judgment are limited and impulse control is impaired. Vitals/I&O/Wt Last Vital Signs Temp 98.4 F 07/27/24 12:00 Pulse 81 07/27/24 12:00 Resp 16 07/27/24 12:00 BP 130/92 07/27/24 12:00 Pulse Ox 99 07/27/24 12:00 O2 Del Method Room Air 07/26/24 06:00 Weight last 48 hrs Weight 99.337 kg Data NPU 07/25/24 21:45 07/25/24 21:45 A&P Assessment and plan (1) Generalized anxiety disorder: (2) Depression: (3) Hypertension: Qualifiers: Hypertension type: unspecified Qualified Code(s): I10 - Essential (primary) hypertension (4) Obesity: (5) Suicidal thoughts: (6) Intentional overdose: Plan This is a 54-year-old white female with a long history of mental health and limited reports of any addiction concerns with genetic loading for mental health and addiction issues and for her second hospitalization in her life for suicide attempt by overdose both times benzodiazepines were involved. The patient is experiencing significant mental health challenges, including depression and anxiety, which have been exacerbated by recent life stressors. There is a history of suicidal ideation and previous intentional overdose, with the current episode involving an overdose of lorazepam due to frustration and somnolence. The patient has a longstanding history of anxiety, dating back to childhood, and has experienced depressive episodes since . 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 The patient has a family history of addiction and mental health issues, which may contribute to the current mental health status. 1. Continue current medication. Would hold Ativan and consider addition of additional antidepressants given being on max dose of duloxetine. 2. Continue every 15 minute checks for safety. 3. Encourage individual, group and milieu therapy. 4. Continue CIWA protocol. 5. Obtain collateral information. 6. Evaluate against the backdrop of 96-hour hold after her intentional ingestion. PDMP PDMP Reviewed: Not Reviewed Involuntary Hold Information 2 Hold Status: Legal Status: 96 Hour Hold Date/Time Hold Expires: 07/31/24 @22:20 Attestations NPU 2 Medical Necessity Statement*: Inpatient hospitalization is medically necessary clinically appropriate intervention at this time. We will monitor medications/initiate medications and make changes as indicated. Likely length of stay 2-4 days. Coding Level of Care Code Acute Code for [facility] Fwd Diagnoses Generalized anxiety disorder F41.1 Depression F32.9 Hypertension I10 Hypertension type: unspecified Obesity E66.9 Suicidal thoughts R45.851 Intentional overdose T50.902A
[2024-07-27 16:00] VITALS: BP 130/88; PULSE 86; RESP 17; TEMP 36.8; O2SAT 95
[2024-07-27 20:00] VITALS: BP 121/82; PULSE 88; RESP 18; TEMP 36.6; O2SAT 98
[2024-07-27] MEDS: trazodone 50 mg Tablet PO ×2 (20:50→23:52)
[2024-07-27] MEDS: hyDROXYzine 25 mg Capsule 50 MG PO (23:52)
[2024-07-27 23:55] VITALS: BP 128/86; PULSE 79; RESP 16; O2SAT 98
[2024-07-28 03:52] VITALS: BP 108/74; PULSE 79; RESP 16; O2SAT 97
[2024-07-28 08:00] VITALS: BP 126/90; PULSE 95; RESP 16; O2SAT 99
[2024-07-28] MEDS: amlodipine 5 mg Tablet PO (09:39)
[2024-07-28] MEDS: pantoprazole DR 40 mg Tablet PO (09:39)
[2024-07-28] MEDS: fluticasone nasal spray 16gm Btl 2 SPRAY INTRANASAL (09:39)
[2024-07-28] MEDS: folic acid 1 mg Tablet PO (09:39)
[2024-07-28] MEDS: duloxetine 60 mg Capsule PO ×2 (09:39→18:51)
[2024-07-28] MEDS: multivitamin therapeutic Tablet 1 TAB PO (09:39)
--- NOTE | 2024-07-28 13:16 | P.NPUPN_ITS ---
Subjective NPU 2 Subjective: Patient presented today reporting that she is doing better she feels. She reports that she understands the situation and how things play it out. She reports that the positive thing has occurred and that her is more open to talking about his drinking and the impact that it has on her her situation. She is reporting inability to contract for safety outside of the hospital. We discussed working with the social work team to make sure she had appropriate outpatient appointments and at behavioral health setting. We discussed the likelihood of discharge in the next 48 hours and possibly tomorrow. She denied any side effects of the medication. Mental Status Exam 2 MSE Comments: This is an obese white female in hospital scrubs with limited grooming but adequate eye contact. No abnormal movements except for mild psychomotor retardation. Cooperative with exam and mild distress. Speech was slightly decreased rate and volume. Mood described as pretty good, affect slightly subdued. Thought process organized. Thought content: Patient denied suicidal or homicidal ideation, there were no delusions reported or noted, she denied any auditory or visual hallucinations. Reports taking an overdose of Ativan, stating it was not a suicide attempt but an attempt to sleep due to frustration, however we discussed that being problematic with her taking reportedly 10-14 times which she normally takes. History of a previous intentional overdose during a difficult divorce. Longstanding history of anxiety, currently managed with lorazepam, and depression, particularly , treated intermittently with antidepressants. Difficulty sleeping, uses lorazepam to help calm the mind and induce sleep. Recent stressors include a trip to [place], conflict with , and financial concerns. History of daughter's cancer during COVID. Mood described as pretty good during the encounter. Attention and concentration were intact and memory appeared mostly reliable but with some likely intentional omissions, but none were formally tested. She is alert and oriented x 3. Insight and judgment are limited and impulse control is impaired. Vitals/I&O/Wt Last Vital Signs Temp 97.9 F 07/27/24 20:00 Pulse 95 07/28/24 08:00 Resp 16 07/28/24 08:00 BP 126/90 07/28/24 08:00 Pulse Ox 99 07/28/24 08:00 O2 Del Method Room Air 07/28/24 08:00 Weight last 48 hrs Weight 100.97 kg Data NPU 07/25/24 21:45 07/25/24 21:45 A&P Assessment and plan (1) Generalized anxiety disorder: (2) Depression: (3) Hypertension: Qualifiers: Hypertension type: unspecified Qualified Code(s): I10 - Essential (primary) hypertension (4) Obesity: (5) Suicidal thoughts: (6) Intentional overdose: Plan This is a 54-year-old white female with a long history of mental health and limited reports of any addiction concerns with genetic loading for mental health and addiction issues and for her second hospitalization in her life for suicide attempt by overdose both times benzodiazepines were involved. The patient is experiencing significant mental health challenges, including depression and anxiety, which have been exacerbated by recent life stressors. There is a history of suicidal ideation and previous intentional overdose, with the current episode involving an overdose of lorazepam due to frustration and somnolence. The patient has a longstanding history of anxiety, dating back to childhood, and has experienced depressive episodes since . 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 The patient has a family history of addiction and mental health issues, which may contribute to the current mental health status. 1. Continue current medication. Would hold Ativan and consider addition of additional antidepressants given being on max dose of duloxetine. 2. Continue every 15 minute checks for safety. 3. Encourage individual, group and milieu therapy. 4. Continue CIWA protocol. 5. Obtain collateral information. 6. Evaluate against the backdrop of 96-hour hold after her intentional ingestion. PDMP PDMP Reviewed: Not Reviewed Involuntary Hold Information 2 Hold Status: Legal Status: 96 Hour Hold Date/Time Hold Expires: 07/31/24 @22:20 Attestations NPU 2 Medical Necessity Statement*: Inpatient hospitalization is medically necessary clinically appropriate intervention at this time. We will monitor medications/initiate medications and make changes as indicated. Likely length of stay 1-3 days. Coding Level of Care Code Acute Code for [facility] Fwd Diagnoses Generalized anxiety disorder F41.1 Depression F32.9 Hypertension I10 Hypertension type: unspecified Obesity E66.9 Suicidal thoughts R45.851 Intentional overdose T50.902A
[2024-07-28 14:55] VITALS: BP 131/84; PULSE 84; RESP 16; O2SAT 99
[2024-07-28 21:03] VITALS: BP 127/81; PULSE 83; RESP 16; TEMP 36.8; O2SAT 99
[2024-07-28] MEDS: trazodone 50 mg Tablet PO (21:55)
[2024-07-28] MEDS: hyDROXYzine 25 mg Capsule 50 MG PO (21:55)
[2024-07-29 06:00] VITALS: BP 116/74; PULSE 86; RESP 16; TEMP 36.4; O2SAT 98
[2024-07-29] MEDS: duloxetine 60 mg Capsule PO ×2 (09:37→18:26)
[2024-07-29] MEDS: amlodipine 5 mg Tablet PO (09:37)
[2024-07-29] MEDS: folic acid 1 mg Tablet PO (09:38)
[2024-07-29] MEDS: pantoprazole DR 40 mg Tablet PO (09:39)
[2024-07-29] MEDS: multivitamin therapeutic Tablet 1 TAB PO (09:39)
--- NOTE | 2024-07-29 13:50 | P.NPUPN_ITS ---
Subjective NPU 2 Subjective: Patient presented today reporting that things are going okay. We discussed the critical need for her to have psychiatric input in her treatment. 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 We discussed the possibility of discharge in the next 48 hours and likely tomorrow if appointments are made and she continues her current progress. She denied any side effects to medications. Mental Status Exam 2 MSE Comments: This is an obese white female in hospital scrubs with limited grooming but adequate eye contact. No abnormal movements except for mild psychomotor retardation. Cooperative with exam and mild distress. Speech was slightly decreased rate and volume. Mood described as pretty good, affect slightly subdued. Thought process organized. Thought content: Patient denied suicidal or homicidal ideation, there were no delusions reported or noted, she denied any auditory or visual hallucinations. Reports taking an overdose of Ativan, stating it was not a suicide attempt but an attempt to sleep due to frustration, however we discussed that being problematic with her taking reportedly 10-14 times which she normally takes. History of a previous intentional overdose during a difficult divorce. Longstanding history of anxiety, currently managed with lorazepam, and depression, particularly , treated intermittently with antidepressants. Difficulty sleeping, uses lorazepam to help calm the mind and induce sleep. Recent stressors include a trip to [place], conflict with , and financial concerns. History of daughter's cancer during COVID. Mood described as pretty good during the encounter. Attention and concentration were intact and memory appeared mostly reliable but with some likely intentional omissions, but none were formally tested. She is alert and oriented x 3. Insight and judgment are limited and impulse control is impaired. Vitals/I&O/Wt Last Vital Signs Temp 97.6 F 07/29/24 06:00 Pulse 86 07/29/24 06:00 Resp 16 07/29/24 06:00 BP 116/74 07/29/24 06:00 Pulse Ox 98 07/29/24 06:00 O2 Del Method Room Air 07/28/24 14:55 Weight last 48 hrs Weight 100.97 kg Data NPU 07/25/24 21:45 07/25/24 21:45 A&P Assessment and plan (1) Generalized anxiety disorder: (2) Depression: (3) Hypertension: Qualifiers: Hypertension type: unspecified Qualified Code(s): I10 - Essential (primary) hypertension (4) Obesity: (5) Suicidal thoughts: (6) Intentional overdose: Plan This is a 54-year-old white female with a long history of mental health and limited reports of any addiction concerns with genetic loading for mental health and addiction issues and for her second hospitalization in her life for suicide attempt by overdose both times benzodiazepines were involved. The patient is experiencing significant mental health challenges, including depression and anxiety, which have been exacerbated by recent life stressors. There is a history of suicidal ideation and previous intentional overdose, with the current episode involving an overdose of lorazepam due to frustration and somnolence. The patient has a longstanding history of anxiety, dating back to childhood, and has experienced depressive episodes since . 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 The patient has a family history of addiction and mental health issues, which may contribute to the current mental health status. 1. Continue current medication. Would hold Ativan and consider addition of additional antidepressants given being on max dose of duloxetine. 2. Continue every 15 minute checks for safety. 3. Encourage individual, group and milieu therapy. 4. Continue CIWA protocol. 5. Obtain collateral information. 6. Evaluate against the backdrop of 96-hour hold after her intentional ingestion. PDMP PDMP Reviewed: Not Reviewed Involuntary Hold Information 2 Hold Status: Legal Status: 96 Hour Hold Date/Time Hold Expires: 07/31/24 @22:20 Attestations NPU 2 Medical Necessity Statement*: Inpatient hospitalization is medically necessary clinically appropriate intervention at this time. We will monitor medications/initiate medications and make changes as indicated. Likely length of stay 1-2 days. Coding Level of Care Code Acute Code for [facility] Fwd Diagnoses Generalized anxiety disorder F41.1 Depression F32.9 Hypertension I10 Hypertension type: unspecified Obesity E66.9 Suicidal thoughts R45.851 Intentional overdose T50.909A
[2024-07-29 14:00] VITALS: BP 122/83; PULSE 94; RESP 16; TEMP 36.9; O2SAT 95
[2024-07-29] MEDS: acetaminophen 325 mg Tablet 650 MG PO ×2 (14:26→20:46)
[2024-07-29] MEDS: trazodone 50 mg Tablet PO ×2 (20:46→23:19)
[2024-07-29 21:05] VITALS: BP 123/76; PULSE 85; RESP 20; TEMP 36.7; O2SAT 96
[2024-07-29] MEDS: hyDROXYzine 25 mg Capsule 50 MG PO (23:19)
[2024-07-30 06:00] VITALS: BP 116/74; PULSE 90; RESP 18; TEMP 36.8; O2SAT 98
--- NOTE | 2024-07-30 07:24 | P.NPUDS_ITS ---
Diagnoses at Discharge Discharge Diagnosis (1) Generalized anxiety disorder: Status: Acute (2) Depression: Status: Acute (3) Hypertension: Status: Acute Qualifiers: Hypertension type: unspecified Qualified Code(s): I10 - Essential (primary) hypertension (4) Obesity: Status: Acute (5) Suicidal thoughts: Status: Resolved (6) Intentional overdose: Status: Acute Reason for Visit Reason for Visit: took 13 Adavans Brief History: [facility] NPU History of Present Illness Mila Thompson is a 54 year old female who presented to the emergency department with the following report: Chief Complaint: Overdose Stated Complaint: took 13 Ativan Time Seen by Provider: 07/25/24 21:10 History of Present Illness: Patient is a 54-year-old female with history of anxiety, depression, and suicidal thoughts with multiple psychiatric visits to the emergency department and hospitalizations seen for apparent overdose of benzodiazepines. She is prescribed Ativan and filled 15 tab prescription yesterday. 14 tablets are gone. They are 1 mg tablets. She was texting her family nonsense which alerted them to the situation. They found her sitting in a closet licking peanut butter out of a bowl. She is tearful as she describes that her is not treating her well. Though she denies overt suicidal ideation, she admits that she wishes she just would not wake up. She is accompanied by her 2 daughters who contest strongly that she is minimizing her symptoms and that they feel she is actively suicidal. She denies headache, chest pain, shortness of breath, and has no other acute complaints. She was admitted to the neuropsychiatric unit for definitive treatment of those issues. She is known to [facility] through distant inpatient and outpatient services. Last inpatient stay here was in September 2012 and an excerpt of that admission is included below for historical context. She also had fairly regular outpatient services here at [facility] through 2017. She presented today reporting: Chief complaint Overdose on lorazepam due to life frustration and sleep disturbances. History of the present complaint The patient reports experiencing significant frustration and sleep disturbances, which led to an incident where she took an excessive amount of lorazepam. She describes taking between 10 to 14 tablets in an attempt to sleep, stating that she did not feel suicidal but was overwhelmed by life frustrations. This behavior was triggered by a recent trip to [place], which she did not want to take, and subsequent conflicts with her regarding finances and his drinking habits. The patient has a history of similar incidents, including a previous intentional overdose during a difficult divorce, where she ingested nearly two bottles of Ativan and a bottle of hydrocodone. The patient has a long-standing history of anxiety and depression, which she traces back to her childhood, marked by anxiety and obsessive-compulsive tendencies. She recalls reading extensively as a coping mechanism during her childhood, which was characterized by her father's alcoholism and the associated family conflicts. Her anxiety has persisted into adulthood, with social aspects becoming more pronounced over time. She experienced depression following the of her first child at age 22, which has been a recurring issue treated intermittently with various antidepressants. The patient has been on duloxetine (Cymbalta) and lorazepam for her mental heal th, with lorazepam primarily used to manage sleep disturbances. She has tried other medications, such as trazodone, but found them ineffective. She has a history of therapy from 2005 to but has not engaged in therapy since then. The patient also reports a significant traumatic event during the pandemic when her daughter was diagnosed with osteosarcoma of the jaw, which added to her stress and led to her current medication regimen. The patient has a family history of mental health issues, including addiction on her father's side and a grandfather who by suicide. She denies any history of substance abuse herself, although she occasionally uses marijuana edibles. She has no history of alcohol use disorder or other substance-related legal issues. The patient has been three times and is currently , living with her and his children from a previous relationship. She is on disability due to an arteriovenous malformation and spinal issues, which prevent her from working. She has undergone multiple surgeries, including a total hysterectomy and two knee replacements. Mental health history Diagnosed with anxiety and depression, with symptoms beginning in childhood, manifesting as OCD behaviors such as excessive reading as a coping mechanism. Experienced depression after the of the first child at age 22. History of two intentional overdoses, the first during a difficult divorce involving an affair, and the second recently due to life frustration. Previously hospitalized for these overdoses. Underwent therapy from 2005 to . Currently on duloxetine and lorazepam for anxiety and depression. Family history of mental health issues and addiction on both sides, with a grandfather who by suicide. Daughter had osteosarcoma of the jaw during COVID, which was a significant stressor. No history of substance abuse treatment or legal issues related to substance use. Social history Currently since 2019, living with and his two children, aged 15 and 14, who stay every other week. Has three biological children: one son, aged 27, and two daughters, aged 31 and 26. Previously twice and . 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 No tobacco or alcohol use; father had a history of alcoholism. Uses cannabis edibles approximately once a month. No history of drug or alcohol rehabilitation. Family history of addiction on both sides and a grandfather who by suicide. 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 No methodist beliefs mentioned. Per her 09/28/2022 [facility] inpatient psychiatric discharge summary: DATE OF ADMISSION: 09/25/2012 DATE OF DISCHARGE: 09/28/2012 DATE OF DICTATION: 09/28/2012 DISCHARGE DIAGNOSES: AXIS I: Bipolar disorder type II, depressed. AXIS II: Personality disorder, not otherwise specified. AXIS III: Lupus and history of Arnold-Chiari malformation. AXIS IV: Poor coping skills, unemployed. AXIS V: Global Assessment of Functionin. Admission Global Assessment of Functionin. HOSPITAL COURSE: The patient was admitted after she has reported feeling depressed and decided to take her life away. The patient has called and told her about it. The patient was planning to commit suicide, taking 15 tablets of 1 milligram Ativan. The patient stated that she was a year ago, but for the first time she saw her with his girlfriend. This has had increased her depression. She has seen SUSAN Snider-FARRAH, in the outpatient. She has been compliant with her medication. DISCHARGE MENTAL STATUS EXAMINATION: On discharge day, the patient is fairly well-groomed, cooperative, good eye contact and spontaneous speech. She has denied any thoughts of suicide or homicide. She has denied any auditory or visual hallucinations. Has a fair insight and judgment. DIAGNOSTICS: LABORATORIES: White count 6.9, hemoglobin 13.4, hematocrit 38.7, platelets 312,000. Sodium 143, potassium 2.8 initially, replaced and the repeated one was 3.4. Creatinine 0.7, AST of 13, ALT of 31. Toxicology negative. Urinalysis negative. Alcohol was negative. test was negative. DISCHARGE MEDICATIONS: 1. Celexa 40 milligrams daily 2. Estradiol 0.5 milligrams daily 3. Neurontin 300 milligrams three times daily 4. Vistaril 25 milligrams every eight ho urs p.r.n. 5. Lamictal 20 milligrams at bedtime 6. Lochearn was increased to 450 milligra ms twice daily, due to the low lithium level obtained. The lithium level obtained in the hospital was 0.3. 7. Was also discharged on KCl 20 millieq uivalents twice daily 8. Was provided with trazodone 50 millig claudio at bedtime as needed. Per her 09/26/2022 [facility] inpatient psychiatric evaluation: DATE OF ADMISSION: 09/25/2012 DATE OF DICTATION: 09/26/2012 CHIEF COMPLIANT: Suicidal thoughts. HISTORY OF PRESENT ILLNESS: The patient was admitted on a 96 hour hold for suicidal thoughts. The patient stated that she is currently . She has been from her , since last year. She met him downtown with his new family. She could not take it anymore. She has missed him a lot. She has felt extremely sad and decided to take her life away. She also has called her and told him that she was going to commit suicide and planned to take a pill and fall asleep. According to her, she has taken a bottle of Ativan. In the Emergency Room, she has mentioned that she had taken up to 15 tablets of 1 milligram Ativan, that I could not take it anymore. I love him too much. She has mentioned that she has history of depression and has been also seeing also Wanda Casas in the outpatient. She has mentioned that she had a history of Arnold-Chiari malformation, which was surgically corrected in the past. She has been told to have also bipolar disorder. She has described some mood swings. She has been taking her medications regularly. She is taking lithium and Lamictal. She has denied any auditory or visual hallucinations. ALLERGIES: Hydrochlorothiazide. CURRENT MEDICATIONS: Lamictal 200 milligrams at bedtime Lochearn 300 milligrams twice daily Neurontin 300 milligrams three times daily Estradiol 0.5 milligrams daily Celexa 40 milligrams daily REVIEW OF SYSTEMS: Negative, except for what was described in the History of Present Illness. PAST PSYCHIATRIC HISTORY: The patient mentioned she has been here previously following her surgery for Arnold-Chiari malformation in 2001, or so. At that time, she was kept here for, what appears like an anger episode. She has been following with Wanda Casas. She has seen Wanda Casas, a few weeks ago. She has been given a diagnosis of bipolar disorder. She has been compliant with her medications. She has threatened suicide in the past, but denied ever attempting suicide, except this time. She has also had a diagnosis of personality disorder, not otherwise specified. PAST MEDICAL HISTORY: History of Arnold-Chiari malformation, surgically corrected. Lupus. FAMILY HISTORY: Gave a family history of depression in a grandmother. Her cousin also has attempted suicide. SOCIAL HISTORY: The patient mentioned that she has three children. Two of them are from her , whom she recently. She had been to him for 16 years. Her children are 15 and 14. She has also been previously and has a 19-year old child. She is currently unemployed. She is on disability for her Arnold Chiari malformation and also getting child and alimony. SUBSTANCE ABUSE HISTORY: She has denied any alcohol or illicit substance abuse Hospital Course Hospital Course She slowly acclimated to the individual, group and milieu therapies provided. She presented with recent intentional overdose/ingestion where she reported taking 3 Ativan going to sleep and waking up and repeating that behavior after a fight with her . We put her on the [facility] protocol to monitor for possible withdrawal from benzodiazepines. We continued her Cymbalta and did not dis charge her with any Ativan. We advised her that she and her outpatient provider would need to discuss the appropriateness of continued a benzodiazepine prescription given this being her 2nd or 3rd overdose with benzodiazepines. It is our recommendation which we explained to her that she did not take benzodiazepines in the future and that she have psychiatric follow-up for her antidepressants and antianxiety medications. Monitoring her off of the Ativan and continuing her current medications had a positive response. She worked with the social work team to get appropriate follow-ups. She then had significant improvement during her stay and was able to contract for safety outside the hospital prior to discharge. During the hospitalization, she had routine laboratory studies which were within normal limits except for few outliers. Additionally she had a general medical evaluation which was also within normal limits and revealed no new acute processes related to the overdose. Discharge summary: At the time of discharge, she denied lethality or psychosis. Her mood and anxiety were well managed and she endorsed a plan to follow-up with outpatient services per the treatment team's recommendations. She was evaluated and deemed to be absent credible lethality and achieved a maximal benefit from an inpatient hospitalization, so she was discharged. Involuntary Hold Information Hold Status: Legal Status: 96 Hour Hold Date/Time Hold Expires: 07/31/24 @22:20 Mental Status Exam MSE Comments: This is an obese white female in hospital scrubs with adequate grooming and eye contact. No abnormal movements except for mild psychomotor retardation. Cooperative with exam in no acute distress. Speech was slightly decreased rate and volume. Mood described as pretty good, affect congruent. Thought process organized. Thought content: Patient denied suicidal or homicidal ideation, there were no delusions reported or noted, she denied any auditory or visual hallucinations. Attention and concentration were intact and memory appeared mostly reliable but with some likely intentional omissions, but none were formally tested. She is alert and oriented x 3. Insight and judgment are limited, but improving and impulse control is limited but improving. Discharge Data Studies Completed and Pending: Laboratory Results WBC 8.52 10^3/uL (3.2 9-11.43) 07/25/24 21:45 RBC 4.84 10^6/uL (3.8 5-5.65) 07/25/24 21:45 Hgb 14.70 g/dL (11.27 -16.99) 07/25/24 21:45 Hct 42.6 % (36-47) 07/25/24 21:45 MCV 88.0 fl (85-98) 07/25/24 21:45 MCH 30.4 pg (27-33) 07/25/24 21:45 MCHC 34.5 g/dL (30-55) 07/25/24 21:45 RDW 12.0 % (12.1-15.1 ) L 07/25/24 21:45 Plt Count 368 10^3/cmm (157 -399) 07/25/24 21:45 MPV 8.9 fL (7.4-10.4) 07/25/24 21:45 Neut % (Auto) 56.6 % 07/25/24 21:45 Lymph % (Auto) 32.2 % 07/25/24 21:45 [place] % (Auto) 8.1 % 07/25/24 21:45 Eos % (Auto) 2.3 % 07/25/24 21:45 Baso % (Auto) 0.6 % 07/25/24 21:45 Neut # (Auto) 4.82 10^3/uL (1.8 -7.7) 07/25/24 21:45 Lymph # (Auto) 2.7 10^3/uL (0.8- 4.8) 07/25/24 21:45 [place] # (Auto) 0.7 10^3/uL (0.2- 0.9) 07/25/24 21:45 Eos # (Auto) 0.2 10^3/uL (0.0- 0.8) 07/25/24 21:45 Baso # (Auto) 0.1 10^3/uL (0.0- 0.1) 07/25/24 21:45 Nucleated RBC % (a uto) 0 % 07/25/24 21:45 Nucleated RBCs # 0.0 /100WBC 07/25/24 21:45 Sodium 140 mmol/L (136-1 45) 07/25/24 21:45 Potassium 3.5 mmol/L (3.5-5 .1) 07/25/24 21:45 Chloride 103 mmol/L (98-10 7) 07/25/24 21:45 Carbon Dioxide 23 mmol/L (22-29) 07/25/24 21:45 Anion Gap 17.5 (5-19) 07/25/24 21:45 BUN 14 mg/dL (6-20) 07/25/24 21:45 Creatinine 0.7 mg/dL (0.5-0. 9) 07/25/24 21:45 GFR Calculation 87.2 mL/min (90-1 30) L 07/25/24 21:45 Glucose 120 mg/dL (65-115 ) H 07/25/24 21:45 Calculated Osmolal ity 292 mOsm/kg (285- 295) 07/25/24 21:45 Calcium 9.5 mg/dL (8.5-10 .5) 07/25/24 21:45 Total Bilirubin 0.6 mg/dL (0.15-1 .2) 07/25/24 21:45 AST 21 U/L (0-32) 07/25/24 21:45 ALT 26 U/L (0-33) 07/25/24 21:45 Alkaline Phosphata se 86 U/L (35-105) 07/25/24 21:45 Total Protein 7.8 g/dL (6.6-8.7 ) 07/25/24 21:45 Albumin 4.4 g/dL (3.5-5.2 ) 07/25/24 21:45 Globulin 3.4 g/dL (1.3-4.6 ) 07/25/24 21:45 TSH 3.43 uIU/mL (0.27 -4.20) 07/25/24 21:45 Urine Color Yellow (Yellow) 07/25/24 21:20 Urine Appearance Clear (CLEAR) 07/25/24 21:20 Urine pH 6.5 (5-7) 07/25/24 21:20 Ur Specific Gravit y 1.011 (1.005-1.0 30) 07/25/24 21:20 Urine Protein Negative (Negati ve) 07/25/24 21:20 Urine Glucose (UA) Negative (Normal ) 07/25/24 21:20 Urine Ketones Negative (Negati ve) 07/25/24 21:20 Urine Blood Negative (Negati ve) 07/25/24 21:20 Urine Nitrate Negative (Negati ve) 07/25/24 21:20 Urine Bilirubin Negative (Negati ve) 07/25/24 21:20 Urine Urobilinogen 1.0 mg/dL (Negati ve) 07/25/24 21:20 Ur Leukocyte Yolanda ase Negative (Negati ve) 07/25/24 21:20 Urine RBC 0-2 /hpf (0-2) 07/25/24 21:20 Urine WBC 0-5 /hpf (0-5) 07/25/24 21:20 Ur Squamous Epith Cells 0-5 /hpf (0-5) 07/25/24 21:20 Amorphous Sediment Not Reportable 07/25/24 21:20 Urine Bacteria None seen /hpf (N ONE) 07/25/24 21:20 Hyaline Casts 0.40 /lpf 07/25/24 21:20 Salicylates < 0.3 mg/dL (3-10 ) L 07/25/24 21:45 Urine Opiates Scre en Positive ng/mL (N egative) H 07/25/24 21:20 Acetaminophen < 5.0 ug/mL (10-3 0) L 07/25/24 21:45 Ur Barbiturates Sc reen Negative ng/mL (N egative) 07/25/24 21:20 Ur Phencyclidine S crn Negative ng/mL (N egative) 07/25/24 21:20 Ur Amphetamines Sc reen Negative ng/mL (N egative) 07/25/24 21:20 U Benzodiazepines Scrn Positive ng/mL (N egative) H 07/25/24 21:20 Urine Cocaine Scre en Negative ng/mL (N egative) 07/25/24 21:20 U Marijuana (THC) Screen Negative ng/mL (N egative) 07/25/24 21:20 Ethyl Alcohol < 10 mg/dL (0-10) 07/25/24 21:45 Vitals: Last Vital Signs Temp 98.3 F 07/30/24 06:00 Pulse 90 07/30/24 06:00 Resp 18 07/30/24 06:00 BP 116/74 07/30/24 06:00 Pulse Ox 98 07/30/24 06:00 O2 Del Method Room Air 07/30/24 06:00 Discharge Plan Discharge Patient Disposition: Home Condition: Stable Prescriptions: New hydroxyzine pamoate 25 mg Capsule 50 mg PO Q6H PRN (Reason: Anxiety) 30 Days Qty: 120 1RF Continued valacyclovir 1 gram tablet 1,000 mg PO TID Qty: 21 3RF amitriptyline 25 mg tablet 50 mg PO BEDTIME PRN (Reason: Headache) Qty: 60 5RF fluticasone propionate [Flonase Allergy Relief] 50 mcg/actuation spray,suspension 2 spray intranasal DAILY Qty: 16 0RF Rx Instructions: administer into each nostril pantoprazole 40 mg tablet,delayed release (DR/EC) 40 mg PO DAILY Qty: 90 1RF duloxetine 60 mg capsule,delayed release(DR/EC) 60 mg PO BID Qty: 60 5RF amlodipine 5 mg tablet 5 mg PO DAILY Qty: 90 3RF Discontinued lorazepam 1 mg tablet 1 mg PO TID PRN (Reason: Anxiety) Qty: 90 5RF Discharge Orders: Discharge Order (Routine); Ordered 07/30/24 Ordered By: Nishant Keller Referrals: [facility] [Other] (Dr. Radha Pleitez Psychologist, [facility] [phone]) Interventional Pain Management -Dr. Amrik Murphy MD [Other] - 08/15/24 8:30 am (follow up appointment with Tenisha Giron APRN) [facility] [Outside] - 07/31/24 8:30 am (Initial appointment scheduled to see Barbara Dang on 07/31/24 at 830 ck in) Robert Lu DO [Primary Care Provider] - 08/05/24 12:40 pm (Follow up in the [facility].) Discharge Diet: Regular Discharge Activity: Resume usual activity Patient Instructions: Hydroxyzine (By mouth) (Vistaril), Help Prevent Suicide in Older Adults (GEN), Adult Overdose (ED), Opioid Safety Discharge Attestations NPU Time Spent in Discharge Care*: less than 30 min Specific Discharge Activities: Specific discharge activities: educating patient, discussing with casework manager/social workers/dc planners, documenting/other paperwork and evaluating patient/reviewing data Coding Level of Care Code Acute Code for Chg Fwd Diagnoses Generalized anxiety disorder F41.1 Depression F32.9 Hypertension I10 Hypertension type: unspecified Obesity E66.9 Suicidal thoughts R45.851 Intentional overdose T50.902A
--- NOTE | 2024-07-30 09:01 | DCPLANNER ---
. Imm was given to pt and rights explained. Copy placed in pts chart.
[2024-07-30] MEDS: duloxetine 60 mg Capsule PO (09:48)
[2024-07-30] MEDS: amlodipine 5 mg Tablet PO (09:48)
[2024-07-30] MEDS: pantoprazole DR 40 mg Tablet PO (09:48)
[2024-07-30] MEDS: folic acid 1 mg Tablet PO (09:48)
[2024-07-30] MEDS: multivitamin therapeutic Tablet 1 TAB PO (09:49)
[2024-07-30] MEDS: fluticasone nasal spray 16gm Btl 2 SPRAY INTRANASAL (09:49)
[2024-07-30 10:40] VITALS: BP 116/74; PULSE 90; RESP 18; TEMP 36.8; O2SAT 99
== END 2024-07-30 12:54 | disposition home or self-care (01) | DRG 918 ==
LOC: ER 23:41 → NP 23:47
PROVIDERS: Admitting Provider Psychiatry & Neurology Psychiatry; Emergency Provider Student in an Organized Health Care Education/Training Program; PCP Family Medicine; Visit Provider Psychiatry & Neurology Psychiatry
DX: T42.4X2A Poisoning by benzodiazepines, intentional self-harm, initial encounter (principal); R45.851 Suicidal ideations; F42.9 Obsessive-compulsive disorder, unspecified; I10 Essential (primary) hypertension; E66.9 Obesity, unspecified; F41.1 Generalized anxiety disorder; F32.9 Major depressive disorder, single episode, unspecified; Z88.8 Allergy status to other drugs, medicaments and biological substances; Z79.899 Other long term (current) drug therapy; Z68.34 Body mass index [BMI] 34.0-34.9, adult; Z81.8 Family history of other mental and behavioral disorders; Z63.0 Problems in relationship with spouse or partner
CPT/HCPCS: 36415; 80053; 80306; 80307; 81001; 84443; 85025; 93005; 97150; 97165; 99285; J9999

== ENCOUNTER → 2024-08-23 08:54 | Outpatient (BNVA) | payer OTHER, MEDICARE, SELFPAY | PROVIDERS: PCP Family Medicine | DX: R39.9 Unspecified symptoms and signs involving the genitourinary system (principal) | CPT/HCPCS: 81000 ==

== ENCOUNTER 2024-09-19 07:48 | Outpatient (CLI) | payer OTHER, MEDICARE, SELFPAY ==
--- NOTE | 2024-09-19 07:51 | CTR_ITS ---
PROCEDURE INFORMATION: Exam: CT Abdomen And Pelvis Without Contrast Exam date and time: 09/19/2024 8:00 AM Age: 54 years old Clinical indication: Abdominal pain; Flank; Right; Prior surgery; Surgery date: 6+ months; Surgery type: Hyst, gb, appy; Additional info: R nephrolithiasis, stat TECHNIQUE: Imaging protocol: Computed tomography of the abdomen and pelvis without contrast. Radiation optimization: All CT scans at this facility use at least one of these dose optimization techniques: automated exposure control; mA and/or kV adjustment per patient size (includes targeted exams where dose is matched to clinical indication); or iterative reconstruction. COMPARISON: CT kidney stone [id number] 08/23/2023 9:25 PM RADIATION DOSE METRICS: Total DLP (mGy-cm): 750.38 FINDINGS: Diaphragm: Small hiatal hernia. Liver: Hepatomegaly. Gallbladder and biliary ducts: Cholecystectomy. Pancreas: Normal. No ductal dilation. Spleen: Normal. No splenomegaly. Adrenal glands: Normal. No mass. Kidneys and ureters: Tiny nonobstructing left renal calculi. No hydronephrosis. Stomach and bowel: Unremarkable. No obstruction. No mucosal thickening. Appendix: No evidence of appendicitis. Intraperitoneal space: Unremarkable. No free air. No significant fluid collection. Vasculature: Unremarkable. No abdominal aortic aneurysm. Lymph nodes: Unremarkable. No enlarged lymph nodes. Urinary bladder: Unremarkable as visualized. Reproductive: Hysterectomy. Bones/joints: Bilateral L5 pars defects without spondylolisthesis. Soft tissues: Unremarkable. CT/CT abdomen pelvis wo con [id number] IMPRESSION: No acute findings.
== END 2024-09-19 07:49 | disposition home or self-care (01) ==
PROVIDERS: PCP Family Medicine; Visit Provider Nurse Practitioner Family
DX: N20.0 Calculus of kidney (principal); K44.9 Diaphragmatic hernia without obstruction or gangrene; R16.0 Hepatomegaly, not elsewhere classified; Z90.49 Acquired absence of other specified parts of digestive tract; Z90.710 Acquired absence of both cervix and uterus; M43.06 Spondylolysis, lumbar region
CPT/HCPCS: 74176

== ENCOUNTER → 2024-10-14 11:40 | Outpatient (BNVA) | payer OTHER, MEDICARE, SELFPAY | PROVIDERS: PCP Family Medicine; Visit Provider Family Medicine | DX: N39.0 Urinary tract infection, site not specified (principal) | CPT/HCPCS: 81000 ==

== ENCOUNTER → 2024-11-14 08:47 | Outpatient (BNVA) | payer OTHER, MEDICARE, SELFPAY | PROVIDERS: PCP Family Medicine; Visit Provider Clinical Nurse Specialist Adult Health | DX: K92.1 Melena (principal); R11.0 Nausea | CPT/HCPCS: 82728; 83540; 85025 ==

== ENCOUNTER → 2024-11-21 12:04 | Outpatient (BNVA) | payer OTHER, MEDICARE, SELFPAY | PROVIDERS: PCP Family Medicine; Visit Provider Clinical Nurse Specialist Adult Health | DX: K92.1 Melena (principal); R11.0 Nausea | CPT/HCPCS: 82272 ==

== ENCOUNTER 2024-12-16 07:09 | Outpatient (CLI) | payer OTHER, MEDICARE, SELFPAY ==
--- NOTE | 2024-12-16 07:18 | US_ITS ---
WS: [id number] DIAGNOSTIC BILATERAL DIGITAL BREAST TOMOSYNTHESIS MAMMOGRAPHY WITH CAD LEFT breast ultrasound, limited HISTORY: left breast lump x 2 COMPARISON: 11/22/2023., 11/15/2022 TECHNIQUE: Bilateral craniocaudad, mediolateral oblique, and mediolateral views are submitted with tomosynthesis and SM. Spot compression LEFT CC and MLO. Computer aided detection utilized. Breast composition: There are scattered areas of fibroglandular density. Triangular markers are placed along the medial LEFT breast at the site of the palpable abnormalities. No distortion or mass identified. No grouping of calcifications. Very similar appearance of the breast as compared to prior mammograms. LEFT breast ultrasound, limited. Ultrasound is directed to 7:00 at 9:00 by the patient to the areas of concern. Both of these areas are approximately 4 cm from the nipple. There is no underlying mass identified. There is no distortion in the soft tissues. US/US breast LT limited* [id number] IMPRESSION: BI-RADS: 2 - Benign. FOLLOW UP: 1 Year Follow-up No mammographic or ultrasound abnormality noted in the areas of clinical concer n.
--- NOTE | 2024-12-16 08:00 | MM_ITS ---
WS: [id number] DIAGNOSTIC BILATERAL DIGITAL BREAST TOMOSYNTHESIS MAMMOGRAPHY WITH CAD LEFT breast ultrasound, limited HISTORY: left breast lump x 2 COMPARISON: 11/22/2023., 11/15/2022 TECHNIQUE: Bilateral craniocaudad, mediolateral oblique, and mediolateral views are submitted with tomosynthesis and SM. Spot compression LEFT CC and MLO. Computer aided detection utilized. Breast composition: There are scattered areas of fibroglandular density. Triangular markers are placed along the medial LEFT breast at the site of the palpable abnormalities. No distortion or mass identified. No grouping of calcifications. Very similar appearance of the breast as compared to prior mammograms. LEFT breast ultrasound, limited. Ultrasound is directed to 7:00 at 9:00 by the patient to the areas of concern. Both of these areas are approximately 4 cm from the nipple. There is no underlying mass identified. There is no distortion in the soft tissues. MM/MM diag BI tomosynthesis [id number] IMPRESSION: BI-RADS: 2 - Benign. FOLLOW UP: 1 Year Follow-up No mammographic or ultrasound abnormality noted in the areas of clinical concer n.
== END 2024-12-16 07:10 | disposition home or self-care (01) ==
LOC: RAD 07:11
PROVIDERS: PCP Family Medicine; Visit Provider Family Medicine
DX: N63.20 Unspecified lump in the left breast, unspecified quadrant (principal); R92.8 Other abnormal and inconclusive findings on diagnostic imaging of breast
CPT/HCPCS: 76642; 77062; G0279

== ENCOUNTER 2025-01-30 11:01 | Outpatient (CLI) | payer OTHER, MEDICARE, SELFPAY ==
--- NOTE | 2025-01-30 11:07 | XR_ITS ---
WS: [id number] KUB, AP view, 01/30/2025 Clinical Data: RIGHT NEPHROLITHIASIS Comparison: KUB, 03/26/2024 Findings: No abnormal intraabdominal masses or calcifications are seen. There is no dilatated small bowel or evidence of obstruction. There is minimal fecal material in the colon. There are cholecystectomy clips in the right upper quadrant. There are surgical coils adjacent to the superior pubic ramus. XR/XR KUB [id number] Impression: Minimal fecal material in the ascending colon.
== END 2025-01-30 11:02 | disposition home or self-care (01) ==
LOC: RAD 11:04
PROVIDERS: PCP Family Medicine; Visit Provider Nurse Practitioner Family
DX: N20.0 Calculus of kidney (principal); Z96.89 Presence of other specified functional implants
CPT/HCPCS: 74018